=== PATIENT | female | born 1960 | race Caucasian/White ===

== ENCOUNTER → 2018-05-09 08:47 | Outpatient (CLI) | payer BC, SELFPAY ==
--- NOTE | 2018-05-09 08:55 | BI_ITS ---
MAMMOGRAPHY - UNILATERAL DIAGNOSTIC: LEFT BREAST REASON FOR EXAM: Female, 58 years old. Palpable abnormality in the left breast at the 8:00 position. PERTINENT HISTORY: Non-contributory. TECHNIQUE: Digital unilateral breast martinez (3D mammographic acquisition) in the CC and MLO projections. 2-D mediolateral oblique (MLO) and craniocaudad (CC) views of both breasts were obtained. CAD: Full Field Digital Mammography with Computer Added Detection was performed. COMPARISON: Comparison is made with prior outside examination from September 04, 2017. FINDINGS: Breast Composition: The breasts are heterogeneously dense, which may obscure small masses. There are no dominant masses or suspicious calcifications. Stable appearing left axillary lymph node. No other significant abnormalities are identified. BI/DIAG MAMM W/CAD, UNILAT IMPRESSION: Stable unilateral diagnostic mammogram. With the patient's history of a palpable abnormality in the left breast, correlation with ultrasound is recommended. ASSESSMENT CATEGORY: BIRADS Category 0: Incomplete. Need additional imaging evaluation. A letter regarding these results will be sent to the patient by the facility within 30 days. Approximately 10% of breast cancers are not detected by mammography. A normal mammogram should not delay biopsy of a clinically suspicious abnormality. Electronically Signed: Homer Montaño MD at 10:29 EST Tel [phone], Service support ,
--- NOTE | 2018-05-09 08:56 | US_ITS ---
STUDY: ULTRASOUND BREAST - LEFT REASON FOR EXAM: Female, 58 years old. Palpable lump left breast. TECHNIQUE: Axial and longitudinal images of the LEFT breast were performed with a high resolution ultrasound transducer. COMPARISON: Comparison is made with prior mammogram done earlier in the day. FINDINGS: LEFT Breast: The medial and upper aspects of the left breast were examined by ultrasound. There is homogeneous fibroglandular tissue. No solid or cystic mass lesion is seen. US/Breast Limited Unilateral IMPRESSION: Unremarkable sonographic examination of the left breast as described. ASSESSMENT CATEGORY: BIRADS Category 1: Negative. A letter regarding these results will be sent to the patient by the facility within 30 days. Electronically Signed: Homer Montaño MD at 12:12 EST Tel [phone], Service support ,
--- OUTSIDE RECORDS SUMMARY | 2018-07-04 14:39 | XMS RPT_ITS ---
:1960 Author Organization OH[facility] Care Team Providers Name Role Phone Rajat Yañez Attending Unavailable Priyanka Muir Primary Care Unavailable RAJAT YAÑEZ Referring Unavailable RAJAT YAÑEZ Referring Unavailable PRIYANKA MUIR Primary Care Unavailable RAJAT YAÑEZ Referring Unavailable PRIYANKA MUIR Primary Care Unavailable PROBLEMS PROBLEMS DATE TYPE CONDITION / ATTENDING STATUS SOURCE CODE 09/04/2017 Active Unknown / NA Active [facility] UNK(Unknown) Other [place] Repository 09/04/2017 Admitting Unknown / NA Active [facility] UNK(Unknown) [facility] Repository PROCEDURES PROCEDURES No Procedure Records FoundRESULTS RESULTS DIAG MAMM W/CAD, Observed: 05/09/2018 Status: F Source: [place] UNILAT 8:56 AM [facility] REPOSITORY [facility] Imaging Services [address] [place] [address] DIAG MAMM W/CAD, UNILAT MR#: [id number] Acct: [id number] Name: ORTIZ GUERRIER R Rep #: [id number] : 1960 F 58 From: Homer Montaño MD PCP: Priyanka Muir MD Status: REG CLI Study: DIAG MAMM W/CAD, UNILAT Date of Exam: 05/09/18 Exam# [id number] Ordering Dr: Rajat Yañez MD MAMMOGRAPHY - UNILATERAL DIAGNOSTIC: LEFT BREAST REASON FOR EXAM: Female, 58 years old. Palpable abnormality in the left breast at the 8:00 position. PERTINENT HISTORY: Non-contributory. TECHNIQUE: Digital unilateral breast martinez (3D mammographic acquisition) in the CC and MLO projections. 2-D mediolateral oblique (MLO) and craniocaudad (CC) views of both breasts were obtained. CAD: Full Field Digital Mammography with Computer Added Detection was performed. COMPARISON: Comparison is made with prior outside examination from September 04, 2017. FINDINGS: Breast Composition: The breasts are heterogeneously dense, which may obscure small masses. There are no dominant masses or suspicious calcifications. Stable appearing left axillary lymph node. No other significant abnormalities are identified. BI/DIAG MAMM W/CAD, UNILAT IMPRESSION: Stable unilateral diagnostic mammogram. With the patient's history of a palpable abnormality in the left breast, correlation with ultrasound is recommended. ASSESSMENT CATEGORY: BIRADS Category 0: Incomplete. Need additional imaging evaluation. A letter regarding these results will be sent to the patient by the facility within 30 days. Approximately 10% of breast cancers are not detected by mammography. A normal mammogram should not delay biopsy of a clinically suspicious abnormality. Electronically Signed: Homer Montaño MD at 10:29 EST Tel [phone], Service support , CC: Priyanka Muir MD; Rajat Yañez MD Latex Spooler: Signed BREAST LIMITED Observed: 05/09/2018 Status: F Source: [place] UNILATERAL 8:56 AM [facility] REPOSITORY [facility] Imaging Services [facility] [place] [address] Breast Limited Unilateral MR#: [id number] Acct: [id number] Name: ORTIZ GUERRIER Rep #: [id number] : 1960 F 58 From: Homer Montaño MD PCP: Priyanka Muir MD Status: REG CLI Study: Breast Limited Unilateral Date of Exam: 05/09/18 Exam# [id number] Ordering Dr: Rajat Yañez MD STUDY: ULTRASOUND BREAST - LEFT REASON FOR EXAM: Female, 58 years old. Palpable lump left breast. TECHNIQUE: Axial and longitudinal images of the LEFT breast were performed with a high resolution ultrasound transducer. COMPARISON: Comparison is made with prior mammogram done earlier in the day. FINDINGS: LEFT Breast: The medial and upper aspects of the left breast were examined by ultrasound. There is homogeneous fibroglandular tissue. No solid or cystic mass lesion is seen. US/Breast Limited Unilateral IMPRESSION: Unremarkable sonographic examination of the left breast as described. ASSESSMENT CATEGORY: BIRADS Category 1: Negative. A letter regarding these results will be sent to the patient by the facility within 30 days. Electronically Signed: Homer Montaño MD at 12:12 EST Tel [phone], Service support , CC: Priyanka Muir MD; Rajat Yañez MD Latex Spooler: Signed MAMMOGRAM SCREENING Observed: 09/04/2017 Status: F Source: [facility] WITH CAD IF PERFORMED 10:37 AM HEALTH SYSTEM REPOSITORY Performed at [facility] APPROVED BY: Rasta Sandoval MD #[id number] - MAMMOGRAM SCREENING WITH CAD IF PERFORMED BILATERAL DIGITAL SCREENING MAMMOGRAM WITH CAD WITH MEDIOLATERAL OBLIQUE CRANIOCAUDAL: 09/04/2017 CLINICAL: Routine screening mammogram. Patient reports no breast problems. Comparison is made to exams dated: 08/31/2016 mammogram, 08/25/2015 mammogram, and 08/21/2014 mammogram - [facility]. There are scattered fibroglandular elements in both breasts. Current study was also evaluated with a Computer Aided Detection (CAD) system. There is a mole marker on the left breast. No significant masses, calcifications, or other findings are seen in either breast. There has been no significant interval change. IMPRESSION: NEGATIVE There is no mammographic evidence of malignancy. A 1 year screening mammogram is recommended. Based on a modified Juliana Model, this patient's calculated lifetime risk of developing breast cancer is 10.0%. The patient was notified of the results. Rasta Sandoval M.D. mr/penrad:09/04/2017 11:56:53 Master Automotive Technician: Rahel Cota)([place]), [facility] letter sent: Normal Birad 1 or 2 Mammogram BI-RADS: 1 Negative ALLERGIES ALLERGIES No Allergies Records FoundENCOUNTERS ENCOUNTERS ADMIT/DISCHARGE ACCOUNT NUMBER ADMITTING ENCOUNTER LOCATION SOURCE CLASS 05/22/2018 [id number] Ambulatory [facility] MEDICAL Repository CENTERBuildi ng:AKXRMA 05/09/2018 [id number] [facility] ding:OPBI Repository 09/04/2017/09/05/19 [id number] Ambulatory [address] Other [place] Repository 09/04/2017/09/05/19 [id number] Ambulatory [address] MEDICAL Repository E[place]ENBOROBuildi ng:AKMAB PAYERS PAYERS ENCOUNTER GUARANTOR PAYER SUBSCRIBER SOURCE 05/22/2018 SINDA TISCHDOB: Primary SINDA TISCHDOB: [facility] [id number] Insurance:BLUE ACCESS [id number] Number: Repository [place], [place] [id number]: ([phone]) Date: [phone] () 05/09/2018 JINNY Primary SINDA R [place] [id number] Insurance:ANTHEMPolic TISCHDOB: [facility] Number: [id number], [place] [id number] Repository [address]Cvc: ([phone]) Date:[phone] () [address], [place] [address]ES: 05/09/2018 Secondary NOT GIVENUNK Luis Manuel Insurance:SELF PAY [facility] Number: Effective Repository Date:2018-05-01 09/04/2017 SINDA TISCHDOB: Primary SINDA TISRONALDOB: Phil Crespo [id number] Insurance:BLUE ACCESS [id number] [place] GARCÍAMcLeod Health Darlingtonic Number: Repository [place], [place] [id number] [id number]: 330) Date: [phone] ()
== END ==
PROVIDERS: Family Provider Family Medicine; PCP Family Medicine; Visit Provider Obstetrics & Gynecology
DX: N63.24 Unspecified lump in the left breast, lower inner quadrant (principal)
CPT/HCPCS: 76642; 77061; 77065; G0279

== ENCOUNTER → 2019-05-15 09:27 | Outpatient (CLI) | payer BC, SELFPAY ==
[2019-05-15 11:00] LABS: Anion Gap 7 (5-15); BUN 13 mg/dL (7-18); BUN/Creat Ratio 15.7 RATIO (10-20); Calcium,Total 9.3 mg/dL (8.5-10.1); Chloride 106 mmol/L (98-107); Creatinine, Serum 0.83 mg/dL (0.55-1.02); EST Glomerular Filtration Rate 75 mL/min (>60); Est Glom Filt Rate - Afr Amer 91 mL/min (>60); Glucose 113 mg/dL (74-106); Potassium 3.6 mmol/L (3.5-5.1); Sodium Level 140 mmol/L (136-145); Thyroid Stim Hormone (TSH) 1.36 uIU/mL (0.358-3.74)
[2019-05-15 11:15] LABS: Vitamin D,25 Hydroxy 49.5 ng/mL (29.95-100.01)
== END ==
PROVIDERS: Family Provider Family Medicine; PCP Family Medicine; Referring Provider Family Medicine; Visit Provider Family Medicine
DX: R73.01 Impaired fasting glucose (principal); Z13.29 Encounter for screening for other suspected endocrine disorder; Z13.21 Encounter for screening for nutritional disorder
CPT/HCPCS: 36415; 80048; 82306; 84443

== ENCOUNTER → 2020-05-19 09:26 | Outpatient (CLI) | payer OTHER, SELFPAY ==
[2020-05-19 10:15] LABS: Mucous, Urine 0 SEEN /hpf (<or=2+); Red Blood Cells-Urine 0 SEEN /hpf (0-5); White Blood Cells 0 SEEN /hpf (0-5)
[2020-05-19 12:13] LABS: Hematocrit 40.3 % (37-47); Hemoglobin 12.9 g/dL (12.0-15.0); Mean Corpuscular Hgb 30.6 pg (27.0-32.0); Mean Corpuscular Volume 95.5 fL (81-99); Mean Platelet Vol. 11.9 fl (6.2-12.0); Platelet Count 212 K/mm3 (150-450); RBC Distribution Width CV 12.5 % (11.6-14.6); RBC Distribution Width SD 43.4 fl (35.1-43.9); Red Blood Count 4.22 M/mm3 (4.2-5.4); White Blood Count 3.8 K/mm3 (4.4-11.0)
[2020-05-19 12:19] LABS: Color, Urine Yellow (Yellow); Glucose, Dipstick Normal (Normal); Ketone-Dipstick 5 mg/dl (Negative); Leukocyte Esterase-Dipstick Negative /ul (Negative); Nitrite-Dipstick Negative (Negative); Occult Blood-Urine Negative /ul (Negative); Protein-Dipstick Negative (Negative); Urine Bilirubin Dipstick Negative (Negative); Urine Clarity Cloudy (Clear); Urine Urobilinogen Normal (Normal)
[2020-05-19 12:26] LABS: Amorphous Sediment 2+; Bacteria 3+ /hpf (None Seen); Squamous Epithelial Cells - UA 0-5 SEEN /hpf (5-10)
[2020-05-19 12:35] LABS: Anion Gap 6 (5-15); BUN 14 mg/dL (7-18); BUN/Creat Ratio 18.9 RATIO (10-20); Calcium,Total 9.1 mg/dL (8.5-10.1); Chloride 109 mmol/L (98-107); Creatinine, Serum 0.74 mg/dL (0.55-1.02); EST Glomerular Filtration Rate 85 mL/min (>60); Est Glom Filt Rate - Afr Amer 103 mL/min (>60); Glucose 97 mg/dL (74-106); Potassium 3.7 mmol/L (3.5-5.1); Sodium Level 143 mmol/L (136-145); Thyroid Stim Hormone (TSH) 1.22 uIU/mL (0.358-3.74)
== END ==
PROVIDERS: PCP Family Medicine; Visit Provider Family Medicine
DX: R82.4 Acetonuria (principal); Z13.29 Encounter for screening for other suspected endocrine disorder; R20.9 Unspecified disturbances of skin sensation; R73.01 Impaired fasting glucose
CPT/HCPCS: 36415; 80048; 81001; 84443; 85027

== ENCOUNTER → 2020-11-06 12:47 | Outpatient (CLI) | payer BC, SELFPAY ==
--- NOTE | 2020-11-06 12:53 | ART_ITS ---
Reason For Study: PVD Procedure A bilateral lower extremity continuous wave Doppler with analog waveform analysis,segmental pressures,and ankle brachial indexes without exercise. Left Segmental Pressures Left brachial= 127mmHg. Left posterior tibial artery = 147mmHg. Left dorsalis pedis artery = 139mmHg. Left digit = 123 mmHg. The left dorsalis pedis waveforms are triphasic. The left posterior tibial artery waveforms are triphasic. Right Segmental Pressures Right brachial= 130mmHg. Right posterior tibial artery = 148mmHg. Right dorsalis pedis artery = 146mmHg. Right digit = 122 mmHg. The right dorsalis pedis waveforms are triphasic. The right posterior tibial artery waveforms are triphasic. Indices The right ankle brachial index by the dorsalis pedis is 1.12. The right ankle brachial index by the posterior tibial artery is 1.14. The right wrist-brachial index is 0.94. The left ankle brachial index by the dorsalis pedis is 1.07. The left ankle brachial index by the posterior tibial artery is 1.13. The left digital-brachial index is 0.95. VL/Lower Ext Art Exam w/o Exercis Interpretation Summary Triphasic Doppler waveforms are noted at ankle level bilaterally. Pulse-volume recording waveform amplitudes are diminished at ankle level bilaterally, but satisfactory at all o ther levels bilaterally. Resting ankle-brachial indices are normal bilaterally. Digital-bra chial indices are normal bilaterally. There is no evidence of significant arterial occlusive disease in the lower ext remities bilaterally. Ordering Physician: Santana Duran Referring Physician: Trino Julio MD Performed By: May Sood RVT
== END ==
PROVIDERS: PCP Family Medicine; Referring Provider Podiatrist; Visit Provider Podiatrist
DX: I73.9 Peripheral vascular disease, unspecified (principal)
CPT/HCPCS: 93923

== ENCOUNTER → 2020-12-23 08:54 | Outpatient (CLI) | payer BC, SELFPAY ==
--- NOTE | 2020-12-23 14:38 | NEURO ---
NCS and/or EMG Patient Report Ordering Doctor: Santana Duran DATE OF SERVICE: 12/23/20 Keron Sams presents for electrodiagnostic testing of the right lower limb. She reports numbness and tingling in both feet. Due to concerns regarding the testing, she is opting to only have the right side done. Electrodiagnostic findings:Right peroneal motor nerve demonstrates normal distal latency, amplitude and conduction velocity. Normal right tibial motor response normal tibial and peroneal F waves. Normal right sural and superficial peroneal responses. Plantar responses are within normal limits.Borderline prolonged H reflex bilaterally. On needle EMG, all muscles tested in the right lower extremity showed no evidence of denervation with normal motor unit action potentials. Electrodiagnostic impression:This is a normal electrodiagnostic study of the right lower limb. There is no electrodiagnostic evidence for peripheral neuropathy or lumbosacral radiculopathy.
== END ==
PROVIDERS: PCP Family Medicine; Referring Provider Podiatrist; Visit Provider Podiatrist
DX: G62.9 Polyneuropathy, unspecified (principal); R20.2 Paresthesia of skin
CPT/HCPCS: 95886; 95910

== ENCOUNTER → 2021-05-21 10:53 | Outpatient (CLI) | payer BC, SELFPAY ==
[2021-05-21 12:11] LABS: Hematocrit 42.9 % (37-47); Mean Corp Hgb Conc 32.6 g/dL (32-36); Mean Corpuscular Hgb 31.1 pg (27.0-32.0); Mean Corpuscular Volume 95.3 fL (81-99); Mean Platelet Vol. 11.6 fl (6.2-12.0); Platelet Count 226 K/mm3 (150-450); RBC Distribution Width CV 12.5 % (11.6-14.6); RBC Distribution Width SD 43.8 fl (35.1-43.9); White Blood Count 4.1 K/mm3 (4.4-11.0)
[2021-05-21 12:26] LABS: Vitamin D,25 Hydroxy 45.1 ng/mL
[2021-05-21 12:27] LABS: Anion Gap 8 (5-15); BUN 12 mg/dL (7-18); Calcium,Total 9.3 mg/dL (8.5-10.1); Chloride 107 mmol/L (98-107); Cholesterol 157 mg/dL (200); EST Glomerular Filtration Rate 78 mL/min (>60); Est Glom Filt Rate - Afr Amer 94 mL/min (>60); Glucose 104 mg/dL (74-106); High Density Lipoprotein 87 mg/dL; Potassium 3.8 mmol/L (3.5-5.1); Sodium Level 141 mmol/L (136-145); Thyroid Stim Hormone (TSH) 1.06 uIU/mL (0.358-3.74); Triglycerides 53 mg/dL; Very Low Density Lipoprotein 11 mg/dL (5-40)
== END ==
LOC: MFPLAB 10:54
PROVIDERS: PCP Family Medicine; Referring Provider Family Medicine; Visit Provider Family Medicine
DX: Z00.00 Encounter for general adult medical examination without abnormal findings (principal); Z13.1 Encounter for screening for diabetes mellitus; Z13.220 Encounter for screening for lipoid disorders
CPT/HCPCS: 36415; 80048; 80061; 82306; 84443; 85027

== ENCOUNTER → 2022-05-25 | Outpatient (CLI) | payer BC, SELFPAY ==
[2022-05-25 17:58] LABS: Hematocrit 41.5 % (37-47); Mean Corp Hgb Conc 33.7 g/dL (32-36); Mean Corpuscular Hgb 32.2 pg (27.0-32.0); Mean Corpuscular Volume 95.4 fL (81-99); Mean Platelet Vol. 11.6 fl (6.2-12.0); Platelet Count 267 K/mm3 (150-450); RBC Distribution Width CV 12.9 % (11.6-14.6); RBC Distribution Width SD 45.6 fl (35.1-43.9); Red Blood Count 4.35 M/mm3 (4.2-5.4); White Blood Count 7.7 K/mm3 (4.4-11.0)
[2022-05-25 18:39] LABS: Anion Gap 10 (5-15); BUN 12 mg/dL (7-18); BUN/Creat Ratio 16.4 RATIO (10-20); Calcium,Total 9.5 mg/dL (8.5-10.1); Chloride 104 mmol/L (98-107); Cholesterol 189 mg/dL (200); Creatinine, Serum 0.73 mg/dL (0.55-1.02); EST Glomerular Filtration Rate 86 mL/min (>60); Est Glom Filt Rate - Afr Amer 104 mL/min (>60); Ferritin 159 ng/mL (8-252); Glucose 101 mg/dL (74-106); High Density Lipoprotein 105 mg/dL; Iron 78 ug/dL (50-170); Potassium 3.8 mmol/L (3.5-5.1); Sodium Level 140 mmol/L (136-145); Thyroid Stim Hormone (TSH) 1.61 uIU/mL (0.358-3.74); Triglycerides 41 mg/dL; Very Low Density Lipoprotein 8 mg/dL (5-40)
[2022-05-25 19:06] LABS: Vitamin B12 471 pg/mL (211-911); Vitamin D,25 Hydroxy 47.3 ng/mL
== END | disposition home or self-care (01) ==
LOC: MFPLAB 15:32
PROVIDERS: PCP Family Medicine; Referring Provider Family Medicine; Visit Provider Family Medicine
DX: Z13.220 Encounter for screening for lipoid disorders (principal); Z13.1 Encounter for screening for diabetes mellitus; L65.9 Nonscarring hair loss, unspecified; Z13.29 Encounter for screening for other suspected endocrine disorder; V77.6XXA Passenger on bus injured in collision with fixed or stationary object in traffic accident, initial encounter
CPT/HCPCS: 36415; 80048; 80061; 82306; 82607; 82728; 83540; 84443; 85027

== ENCOUNTER → 2022-06-02 | Outpatient (CLI) | payer BC, SELFPAY ==
[2022-06-13 16:15] LABS: HPV APTIMA, High Risk Negative (Negative)
== END | disposition home or self-care (01) ==
LOC: LABSPEC 11:29
PROVIDERS: PCP Family Medicine; Visit Provider Obstetrics & Gynecology
DX: Z12.4 Encounter for screening for malignant neoplasm of cervix (principal)
CPT/HCPCS: 87624; 88175; G0145

== ENCOUNTER → 2024-11-26 | Outpatient (CLI) | payer BC, SELFPAY ==
--- NOTE | 2024-11-26 11:03 | RAD_ITS ---
PROCEDURE: ANKLE MIN 3 VIEWS 11/26/2024 REASON FOR EXAM: LEG SWELLING TECHNIQUE: ANKLE MIN 3 VIEWS COMPARISON: None. FINDINGS: Chronic deformity of the distal fibular diaphysis secondary to healed fracture. Well corticated bone fragment adjacent to the tip of the medial malleolus, chronic finding. Calcaneal spur formation. Mild osteopenia of the visualized bones. Degenerative joint disease. No fracture or dislocation is seen. No lytic or blastic bone lesion is noted. . RAD/Ankle min 3 Views IMPRESSION: No evidence for acute abnormality. [facility]
== END | disposition home or self-care (01) ==
LOC: MTRAD 11:01
PROVIDERS: PCP Family Medicine
DX: M79.89 Other specified soft tissue disorders (principal)
CPT/HCPCS: 73610

== ENCOUNTER → 2024-12-17 | Outpatient (CLI) | payer BC, SELFPAY ==
[2024-12-17 13:32] LABS: Anion Gap 11 (5-15); BUN 10 mg/dL (4-19); BUN/Creat Ratio 13.3 RATIO (10-20); Calcium,Total 9.6 mg/dL (7.6-11.0); Carbon Dioxide 24.5 mmol/L (21.0-32.0); Chloride 103 mmol/L (98-108); Glucose 127 mg/dL (70-99); Potassium 4.0 mmol/L (3.3-5.1); Vitamin D,25 Hydroxy 50.7 ng/mL (30-100)
== END | disposition home or self-care (01) ==
LOC: MTLAB 09:05
PROVIDERS: PCP Family Medicine; Referring Provider Podiatrist; Visit Provider Podiatrist
DX: M84.371A Stress fracture, right ankle, initial encounter for fracture (principal)
CPT/HCPCS: 36415; 80048; 82306

== ENCOUNTER → 2025-02-04 | Outpatient (CLI) | payer BC, SELFPAY ==
--- NOTE | 2025-02-04 12:42 | VDLE_ITS ---
Reason For Study Reason For Study: RLE PAIN/SWELLING RIGHT LEFT CFV is compressible, spontaneous, phasic, competent CFV is compressible, spontaneous, phasic, competent, and demonstrates normal augmentation. and demonstrates normal augmentation. FV is compressible, spontaneous, phasic, competent and demonstrates normal augmentation. POP V is compressible, spontaneous, phasic, competent and demonstrates normal augmentation. T/P Trunk is compressible. PTV is compressible. RT PerV is compressible. GSV is normal from prox calf to groin. GSV is DILATED AND NONCOMPRESSIBLE from ANKLE to MID CALF C/W ACUTE SVT. Procedure This is a venous duplex using B-mode, color flow and spectral Doppler. Exam performed in department. A preliminary report was called and/or faxed to Brigitte @ [facility] @ 13:10 @ [phone]. VL/Venous Duplex US, Unilateral Interpretation Summary Deep veins of the right lower extremity are patent and compressible segmentally . There is no evidence of right lower extremity deep vein thrombosis. Valvular competence appears intact within the p roximal deep venous system on the right . Acute superficial thrombophlebitis is noted in the right great saphenous vein f rom the ankle to the mid-calf. The right great saphenous vein is patent and compressible from the proximal calf to the g roin. The left common femoral vein is patent and compressible . Ordering Physician: Santana Duran Referring Physician: Trino Julio Performed By: Araseli Bravo, KWABENA, RVT
--- OUTSIDE RECORDS SUMMARY | 2025-02-04 20:34 | XMS RPT_ITS | CCD ---
Author Organization [facility] Care Team Providers Care Car Bracer Name Role Phone RAJAT YAÑEZ Referring Unavailable PRIYANKA JULIO Primary Care UnavailRAJAT Hobbs Referring Unavailable PRIYANKA JULIO Primary Care Priyanka Paredes MD Primary Care Provider Priyanka Julio MD Primary Care Provider Priyanka Julio MD Primary Care Provider PRIYANKA JULIO Referring UnavailPRIYANKA Ballesteros Primary Care Unavailshira Julio MD, Dr. Jameson Primary Care Provider Dr. Priyanka Julio MD Referring Provider Rajat Avila Attending Provider Go RECORDS SECTION SUPERVISOR-CViviana Attending Provider [phone] Go RECORDS SECTION SUPERVISOR-CViviana Referring Provider Dr. Priyanka Julio MD Primary Care Provider Dr. Priyanka Julio MD Referring Provider Rajat Avila Attending Provider Roger DPMDr. Dillon Attending Provider [phone] Roger HIGUERAMDr. Dillon Referring Provider Priyanka Julio Referring Unavailable Priyanka Julio Primary Care Unavailable Rajat Avila Attending Unavailable Priyanka Julio Primary Care Unavailable Santana Duran Referring Unavailable Santana Duran Attending Unavailable Go RECORDS SECTION SUPERVISOR, Viviana Attending Unavailable Priyanka Julio Primary Care Unavailable Go RECORDS SECTION SUPERVISORViviana Referring Unavailable Priyanka Julio Referring Unavailable Priyanka Julio Primary Care Unavailable Rajat Avila Attending Unavailable Medications Current Medications Medication Drug Class(es) Dates Sig (Normalized) Sig (Original) amoxicillin 875 mg oral tablet (8 sources) Penicillin-class Antibacterial Start: 11-06-2024 take 1 tablet by mouth twice daily Amoxicillin 875 mg tablet Active 875 mg PO TWICE A DAY 20 0 November 06, 2024 12:00am Start: 08-20-2024 End: 11-06-2024 take 1 tablet by mouth three times daily Amoxicillin 500 mg tablet Discontinued 500 mg PO THREE TIMES A DAY 30 0 August 20, 2024 12:00am November 06, 2024 7:51am Multivitamin tablet (3 sources) Start: 08-20-2024 Multivitamin t ablet Active 1 {tbl} PO daily August 20, 2024 12:00am Hollis 7-Bwp-Rhg-Fish Oil (Fi sh Oil) 60-90-500 mg capsule (3 sources) Start: 08-20-2024 Hollis 3-Dha-Ep a-Fish Oil (Fish Oil) 60-90-500 mg capsule Active 1 NMA PO daily August 20, 2024 12:00am Problems Active Problems Problem Classification Problem Date Documented Da te Episodic/Chronic Fracture of lower limb (1 source) Stress fracture, right ankle, initial encounter for fracture; Translations: [Stress fracture, right ankle, initial encounter for fracture] Onset: 12-24-2024 Episodic Other connective tissue disease (1 source) Other specified soft tissue disorders; Translations: [Other specified soft tissue disorders] Onset: 12-03-2024 Episodic Past or Other Problems Problem Classification Problem Date Documented Da te Episodic/Chronic Unclassified (1 source) lump on left side 800 position Onset: 05-22-2018 Results Test Name Value Interpretation Reference Range Facil ity Anion gap in Serum or Plasma Ordered By: Santana Duran on 12-17-2024 Anion gap [Moles/Vol] 11 mmol/L 10-24 [facility] BUN/creatinine ratioOrdered By: Santana Duran on 12-17-2024 Urea nitrogen/Creatinine [Mass ratio] 13.3 mg/mg 03-31 [facility] Basic Metabolic Profile (BMP )on 12-17-2024 BUN/CRE 13.3 RATIO Normal 03-31 [facility] Comment on above: Performed By: #### L 506.1001, L500.2500 #### [facility] [address] [place], [address] Calcium [Mass/Vol] 9.6 mg/dL Normal 7.6-11.0 [facility] Comment on above: Performed By: #### L 506.1001, L500.2500 #### [facility] [address] [place], [address] Chloride [Moles/Vol] 103 mmol/L Normal 98-108 [facility] Comment on above: Performed By: #### L 506.1001, L500.2500 #### [facility] [address] [place], [address] CO2 [Moles/Vol] 24.5 mmol/L Normal 21.0-32.0 [facility] Comment on above: Performed By: #### L 506.1001, L500.2500 #### [facility] [address] [place], [address] Creatinine [Mass/Vol] 0.78 mg/dL Normal 0.70-1.20 [facility] Comment on above: Performed By: #### L 506.1001, L500.2500 #### [facility] [address] [place], [address] GAP 11 Normal 5-15 [facility] Comment on above: Performed By: #### L 506.1001, L500.2500 #### [facility] [address] [place], [address] GFR/1.73 sq M.predicted among non-blacks MDRD (S/P/Bld) [Vol rate/Area] 85 mL/min/{1.73_m2} Normal >60 [facility] Comment on above: Result Comment: mL/m in/1.73m2 CKD-EPI Creatinine Equation (2020) Performed By: #### L 506.1001, L500.2500 #### [facility] [address] [place], [address] Glucose [Mass/Vol] 127 mg/dL High 70-99 [facility] Comment on above: Performed By: #### L 506.1001, L500.2500 #### [facility] [address] [place], [address] Potassium [Moles/Vol] 4.0 mmol/L Normal 3.3-5.1 [facility] Comment on above: Performed By: #### L 506.1001, L500.2500 #### [facility] [address] [place], [address] Sodium [Moles/Vol] 139 mmol/L Normal 133-145 [facility] Comment on above: Performed By: #### L 506.1001, L500.2500 #### [facility] [address] [place], [address] Urea nitrogen [Mass/Vol] 10 mg/dL Normal 4-19 [facility] Comment on above: Performed By: #### L 506.1001, L500.2500 #### [facility] [address] [place], [address] Carbon dioxide, total [Moles /volume] in Central venous bloodOrdered By: Santana Duran on 12-17-2024 CO2 [Moles/Vol] 24.5 mmol/L 21.0-32.0 [facility] Chloride assayOrdered By: Tevin Duran on 12-17-2024 Chloride [Moles/Vol] 103 mmol/L 98-108 [facility] Glomerular filtration rate ( GFR) estimation/1.73 sq m using serum, plasma, or whole bOrdered By: Santana Duran on 12-17-2024 GFR/1.73 sq M.predicted among non-blacks MDRD (S/P/Bld) [Vol rate/Area] 85 mL/min/{1.73_m2} >60 [facility] Comment on above: mL/min/1.73m2 CKD-EP I Creatinine Equation (2020) Potassium measurement (mass/ volume)Ordered By: Santana Duran on 12-17-2024 Potassium (Unsp spec) [Mass/Vol] 4.0 mmol/L 3.3-5.1 [facility] Serum creatinine measurement (mass/volume)Ordered By: Santana Duran on 12-17-2024 Creatinine [Mass/Vol] 0.78 mg/dL 0.70-1.20 [facility] Serum glucose measurement (m ass/volume)Ordered By: Santana Duran on 12-17-2024 Glucose [Mass/Vol] 127 mg/dL High 70-99 [facility] Serum or plasma calcium silke urement (mass/volume)Ordered By: Santana Duran on 12-17-2024 Calcium [Mass/Vol] 9.6 mg/dL 7.6-11.0 [facility] Serum or plasma urea nitroge n measurement (mass/volume)Ordered By: Santana Duran on 12-17-2024 Urea nitrogen [Mass/Vol] 10 mg/dL 4-19 [facility] Sodium levelOrdered By: Pipe Duran on 12-17-2024 Sodium [Moles/Vol] 139 mmol/L 133-145 [facility] Vitamin D,25 Hydroxyon 12-17 Vitamin D 25-OH 50.7 ng/mL Normal 30-100 [facility] Comment on above: Result Comment: Maisha min D Status Deficiency: <20 ng/mL (50nmol/L) Insufficiency: 20-30 ng/mL (50-75 nmol/L) Sufficiency: 30-100 ng/mL (75-250 nmol/L) Toxicity: >100 ng/mL (>250 nmol/L) Performed By: #### L 506.1001, L500.2500 #### [facility] [address] [place], [address] Ankle min 3 Viewson 11-27-19 25 Ankle min 3 Views [facility] Imaging Services [address] [place] [address] Ankle min 3 Views MR#: [id number] Acct: [id number] Name: ORTIZ SAMS Rep #: [id number] : 1960 F 64 From: Christopher leon MD PCP: Dr. Priyanka Julio MD Status: REG CLI Study: Ankle min 3 Views Date of Exam: 11/26/24 Exam# [id number] Ordering Dr: Viviana Stiles NP, NP PROCEDURE: ANKLE MIN 3 VIEWS 11/26/2024 REASON FOR EXAM: LEG SWELLING TECHNIQUE: ANKLE MIN 3 VIEWS COMPARISON: None. FINDINGS: Chronic deformity of the distal fibular diaphysis secondary to healed fracture. Well corticated bone fragment adjacent to the tip of the medial malleolus, chronic finding. Calcaneal spur formation. Mild osteopenia of the visualized bones. Degenerative joint disease. No fracture or dislocation is seen. No lytic or blastic bone lesion is noted. . RAD/Ankle min 3 Views IMPRESSION: No evidence for acute abnormality. Reading Location: [place] [address] CC: Viviana Stiles; Dr. Priyanka Julio MD Work Over Rig Operator: Signed Normal [facility] Urgent Care Visit Reporton 0 11-06-2024 Urgent Care Visit Report [facility] [address], [address] [place] [id number] OFFICE VISIT Date of Service: 11/06/24 MR#: [id number] Acct: [id number] Name: ORTIZ SAMS Rep #: [id number] : 1960 Provider: HARMONY Vaz Age/Sex: 64/F Location: [facility] Status: Signed Intake Vital Signs 08/20/24 08:23 11/06/24 07:50 Height 5 ft 6 in Weight: 139 lb BMI 22.4 BP 138/82 H 132/68 H Blood Pressure Location Lt brachial Lt brachial Position Sitting Sitting Respiration 16 16 Pulse 66 67 Pulse Source Monitor NIBP Temp 98.1 F 98.7 F Temp Source Temporal Oral Pulse Oximetry (%) 97 100 Oxygen Delivery Method room air room air Intake Visit Reasons: WESTLEY/PEREZ/ST Chief Complaint: congest, chest tight, cough, PEREZ, mucus Grill Cook Required: No Is patient in pain?: No Allergies No Known Allergies Allergy (Verified 11/06/24 07:51) Medications ???Medication ???Instructions ???Recorded ???Confirmed ???Type multivitamin 1 tab PO QDAY 08/20/24 08/20/24 Hi story omega 6-pfz-uzd-fish oil 60 mg-90 1 cap PO QDAY 08/20/24 08/20/24 H istory mg-500 mg capsule (Fish Oil) amoxicillin 875 mg tablet 875 mg PO BID #20 tabs 11/06/24 Rx Is last menstrual period known: No Post menopausal: Yes Patient : No Have you fallen in the past year?: No Nurse's Note: congest, chest tight, cough, PEREZ, mucus x 6 days without resolve. has tried numerous otc meds without relief. denies fever. [facility] Social History (Updated 08/20/24 @ 08:16 by Jade Sutton) Smoking Status: Never smoker alcohol intake: current alcohol intake frequency: a few times a week HPI HPI Chief Complaint: congest, chest tight, cough, PEREZ, mucus Details: ORTIZ SAMS, is a 64 F who presents to the office today for [facility] evaluation [facility] for approximately 1-week history of progressively worsening right facial pressure/congestion with purulent postnasal drip/cough. No complaints of fever, chills, myalgias, fatigue, runny nose, or nausea/vomiting/diarr hea. No complaints of chest pressure (though describes tightness w/ occasional cough)/shortness of breath/dyspnea on exertion. No close contacts with similar complaints. Nonsmoker. Declining POC screening. No other associated symptoms and no other alleviating/aggravati ng factors. ROS Const Constitutional: No other (as above) Exam Const General: cooperative, healthy appearing and no acute distress Nutritional Appearance: average body habitus Orientation: alert, awake and oriented x3 HENMT Head: normal to inspection Ears: hearing grossly normal bilaterally, external ears normal, TM's normal bilaterally and EAC's normal Nose: external nose normal, nares normal, septum normal and no nasal discharge Face and sinus: normal facial exam, right maxillary sinus pain tender (w/ right maxillary fullness to palpation) and face symmetric Mouth: oral mucosae normal, lip normal, tongue normal and oropharynx normal Throat: posterior oropharynx normal, tonsils normal, uvula midline and postnasal drainage (Purulent) Eyes General: appearance normal, both eyes and all related structures Neck Neck: normal visual inspection, full ROM, no meningeal signs, supple and lymphadenopathy (R>L anterior cervical lymph node swelling/tender to palpation) Neck mass: No Thyroid: thyroid normal Chest Chest palpation inspection: normal inspection of the chest Resp Effort Inspection: normal respiratory effort and able to speak in complete sentences Auscultation: Bilateral: Clear to Auscultation Cardio Palpation: normal PMI Rate: regular rate Rhythm: regular rhythm Heart Sounds: S1 normal, S2 normal, no gallops, no murmurs and no rubs Pulses: radial pulses present GI Inspection: normal to inspection Skin General: no rashes or lesions noted Neuro General: patient alert, patient awake and patient oriented x3 Cognition: normal cognition Speech: speech normal Psych Appearance: grossly normal Mental Status: mental status grossly normal Mood: congruent mood Affect: normal affect Speech and Movement: speech and movement normal Attitude: cooperative Diagnoses Acute maxillary sinusitis, unspecified J01.00 Assessment and Plan Assessment and Plan (1) Acute maxillary sinusitis, unspecified: Status: Acute Plan: Amoxicillin as prescribed today. Supportive measures as instructed today. Follow-up with PCP in 3 to 5 days should symptoms not improve, sooner should symptoms worsen or any other concerns develop. Patient states acknowledging understanding all the above. Coding Level of Care Code Off vis,est,level 3 Assessment and Plan Assessment and Plan Medications: New amoxicillin 875 mg PO BID 20 tabs 0RF Clinical Quality Measures Falls Risk Scr (more content not included)... Normal [facility] SAQIB SCREENING W TOMOon 10-07 SAQIB SCREENING W LYNN * * *Final Report* * * DATE OF EXAM: Oct 07 2024 3:22PM AWW 0582 - SAQIB SCREENING W LYNN / PROCEDURE REASON: screening mamm * * * * Physician Interpretation * * * * [facility] [address] [place], [place] [address] #[id number] - SAQIB SCREENING W LYNN HISTORY: 64 year-old patient [...] Frederick Mack M.D. Electronically signed on: 10/08/2024 Work Over Rig Operator: ARABELLA Transcribe Date/Time: Oct 07 2024 2:49P Dictated by : FREDERICK MACK MD This examination was interpreted and the report reviewed and electronically signed by: FREDERICK MACK MD on Oct 08 2024 8:59AM EST [id number] Normal [facility] Urgent Care Visit Reporton 0 08-20-2024 Urgent Care Visit Report [facility] [address], [address] [place] [address] OFFICE VISIT Date of Service: 08/20/24 MR#: [id number] Acct: [id number] Name: ORTIZ SAMS Rep #: [id number] : 1960 Provider: HARMONY Vaz Age/Sex: 64/F Location: [facility] Status: Signed Intake Vital Signs 08/20/24 08:23 Height 5 ft 6 in Weight: 139 lb BMI 22.4 BP 138/82 H Blood Pressure Location Lt brachial Position Sitting Respiration 16 Pulse 66 Pulse Source Monitor Temp 98.1 F Temp Source Temporal Pulse Oximetry (%) 97 Oxygen Delivery Method room air Intake Visit Reasons: ST/BILAT EAR PAIN/PEREZ Chief Complaint: sinus congestion, b/l ear pain, cough Grill Cook Required: No Accompanied by: Self Is patient in pain?: No Allergies No Known Allergies Allergy (Verified 08/20/24 08:15) Medications ???Medication ???Instructions ???Recorded ???Confirmed ???Type amoxicillin 500 mg tablet 500 mg PO TID #30 tabs 08/20/24 Rx amoxicillin 500 mg tablet 500 mg PO TID #30 tabs 08/20/24 Rx multivitamin 1 tab PO QDAY 08/20/24 08/20/24 Hi story omega 4-fma-wdg-fish oil 60 mg-90 1 cap PO QDAY 08/20/24 08/20/24 H istory mg-500 mg capsule (Fish Oil) PFSH Social History (Updated 08/20/24 @ 08:16 by Jade Sutton) Smoking Status: Never smoker alcohol intake: current alcohol intake frequency: a few times a week HPI HPI Chief Complaint: sinus congestion, b/l ear pain, cough Details: ORTIZ SAMS, is a 64 F who presents to the office today for [facility] for 8-day history of progressively worsening facial pressure/congestion with purulent postnasal drip/cough and bilateral ear pressure. No complaints of fever, chills, myalgias, fatigue, runny nose, or nausea/vomiting/diarr hea. No complaints of chest pain/shortness of breath/dyspnea on exertion. Several close contacts with similar complaints, including spouse. Non-smoker. No axxm-tmz-crlcqfz products taken to assist. No other associated symptoms and no other alleviating/aggravati ng factors. ROS Const Constitutional: No other (as above) Exam Const General: cooperative, healthy appearing and no acute distress Nutritional Appearance: average body habitus Orientation: alert, awake and oriented x3 HENMT Head: normal to inspection Ears: hearing grossly normal bilaterally, external ears normal, TM's normal bilaterally and EAC's normal Nose: external nose normal, nares normal, septum normal and no nasal discharge Face and sinus: normal facial exam, bilateral maxillary sinuses palpable tender (with R>L maxillary fullness to palpation) and face symmetric Mouth: oral mucosae normal, lip normal, tongue normal and oropharynx normal Throat: posterior oropharynx normal, tonsils normal, uvula midline and postnasal drainage (Purulent) Eyes General: appearance normal, both eyes and all related structures Neck Neck: normal visual inspection, full ROM, no meningeal signs, supple and lymphadenopathy (Bilateral anterior cervical lymph node swelling/tender to palpation) Neck mass: No Thyroid: thyroid normal Chest Chest palpation inspection: normal inspection of the chest Resp Effort Inspection: normal respiratory effort and able to speak in complete sentences Auscultation: Bilateral: Clear to Auscultation Cardio Palpation: normal PMI Rate: regular rate Rhythm: regular rhythm Heart Sounds: S1 normal, S2 normal, no gallops, no murmurs and no rubs Pulses: radial pulses present GI Inspection: normal to inspection Skin General: no rashes or lesions noted Neuro General: patient alert, patient awake and patient oriented x3 Cognition: normal cognition Speech: speech normal Psych Appearance: grossly normal Mental Status: mental status grossly normal Mood: congruent mood Affect: normal affect Speech and Movement: speech and movement normal Attitude: cooperative Diagnoses Acute maxillary sinusitis, unspecified J01.00 Assessment and Plan Assessment and Plan (1) Acute maxillary sinusitis, unspecified: Status: Acute Plan: Amoxicillin as prescribed today. Supportive measures as instructed today. Follow-up with PCP in 3 to 5 days should symptoms not improve, sooner should symptoms worsen or any other concerns develop. Patient states acknowledging understanding all the above. Coding Level of Care Code Off vis,new,level 3 Assessment and Plan Assessment and Plan Medications: New amoxicillin 500 mg PO TID 30 tabs 0RF amoxicillin 500 mg PO TID 30 tabs 0RF 08/20/24 0828 Date Rajat ANTUNEZ Cosigner Signature: Date (if applicable) CC: Normal [facility] Basophil percentageon 2021 Chloride [Moles/Vol] 104 mmol/L 98-107 [facility] Work Phone: Cholesterol [Mass/Vol] 189 mg/dL <200 [facility] Work Phone: Comment on above: <200 mg/dL Desirable 200-240 mg/dL Borderline >240 mg/dL High Risk Glucose [Mass/Vol] 101 mg/dL 74-106 [facility] Work Phone: Comment on above: Fasting Glucose resu lt from 100 to 125 mg/dL suggests IMPAIRED HOMEOSTASIS per A.D.A. criteria. Potassium [Moles/Vol] 3.8 mmol/L 3.5-5.1 [facility] Work Phone: Sodium [Moles/Vol] 140 mmol/L 136-145 [facility] Work Phone: Triglyceride [Mass/Vol] 41 mg/dL <199 [facility] Work Phone: Comment on above: The drugs N-Acetylcy steine and Metamizole may falsely depress this assay.Serum Triglycerides Reference Interval Normal <150 mg/dL Borderline high 150 - 199 mg/dL High 200 - 499 mg/dL Very High > or = 500 mg/dL WBC (Bld) [#/Vol] 7.7 10*3/uL 4.4-11.0 [facility] Work Phone: Blood erythrocytes count (nu mber/volume)on 05-25-2022 RBC (Bld) [#/Vol] 4.35 10*6/uL 4.2-5.4 [facility] Work Phone: Blood hemoglobin measurement (mass/volume)on 05-25-2022 Hemoglobin (Bld) [Mass/Vol] 14.0 g/dL 12.0-15.0 [facility] Work Phone: Blood platelet mean volumeon 05-25-2022 Platelet mean volume (Bld) [Entitic vol] 11.6 fL 6.2-12.0 [facility] Work Phone: Determination of erythrocyte mean corpuscular volume (MCV)on 05-25-2022 MCV (RBC) [Entitic vol] 95.4 fL 81-99 [facility] Work Phone: Hematocrit Auto (Bld) [Volum e fraction]on 05-25-2022 Hematocrit (Bld) [Volume fraction] 41.5 % 37-47 [facility] Work Phone: Iron measurement (mass/mass) on 05-25-2022 Iron (Unsp spec) [Mass/Mass] 78 ug/dL 50-170 [facility] Work Phone: Laboratory - Chemistry and C hemistry - challengeon 05-25-2022 CO2 [Moles/Vol] 26.0 mmol/L 21.0-32.0 [facility] Work Phone: Cobalamin (Vitamin B12) [Mass/Vol] 471 pg/mL 211-911 [facility] Work Phone: Urea nitrogen/Creatinine [Mass ratio] 16.4 mg/mg 10-20 [facility] Work Phone: Laboratory - Hematology and Cell countson 05-25-2022 Erythrocyte distribution width (RBC) [Entitic vol] 45.6 fL 35.1-43.9 [facility] Work Phone: Erythrocyte distribution width (RBC) [Ratio] 12.9 % 11.6-14.6 [facility] Work Phone: MCH (RBC) [Entitic mass] 32.2 pg 27.0-32.0 [facility] Work Phone: MCHC Auto (RBC) [Mass/Vol]on 05-25-2022 MCHC (RBC) [Mass/Vol] 33.7 g/dL 32-36 [facility] Work Phone: No Panel Informationon 12-14 -2022 Estimated GFR (MDRD) Amer 104 mL/min >60 [facility] Work Phone: Comment on above: GFR Calc Estimated GFR (MDRD) Non-Af Amer 86 mL/min >60 [facility] Work Phone: Comment on above: Non- GFR Calc Thyroid Stimulating Hormone (TSH) 1.61 uIU/mL 0.358-3.74 [facility] Work Phone: Vitamin D 25-Hydroxy 47.3 ng/mL [facility] Work Phone: Comment on above: Vitamin D 25(OH) Sta tus Range Deficiency <20 ng/mL (50nmol/L) Insufficiency 20 - 30 ng/mL (50 - 75 nmol/L) Sufficiency 30 - 100 ng/mL (75 - 250 nmol/L) Toxicity >100 ng/mL (>250 nmol/L) Platelets bldon 05-25-2022 Platelets (Bld) [#/Vol] 267 10*3/uL 150-450 [facility] Work Phone: Serum or plasma calcium silke urement (mass/volume)on 05-25-2022 Calcium [Mass/Vol] 9.5 mg/dL 8.5-10.1 [facility] Work Phone: Serum or plasma cholesterol in HDL measurement (mass/volume)on 05-25-2022 Cholesterol in HDL [Mass/Vol] 105 mg/dL >40 [facility] Work Phone: Comment on above: The drugs N-Acetylcy steine and Metamizole may falsely depress this assay. Reference Range HDL <40 mg/dL Low HDL Cholesterol HDL >or= 60 mg/dL High HDL Cholesterol Serum or plasma cholesterol in VLDL measurement (mass/volume)on 05-25-2022 Cholesterol in VLDL [Mass/Vol] 8 mg/dL 5-40 [facility] Work Phone: Serum or plasma creatinine m easurement (mass/volume)on 05-25-2022 Creatinine [Mass/Vol] 0.73 mg/dL 0.55-1.02 [facility] Work Phone: Comment on above: The validity of the calculated GFR & GFRAA in patients over 70 years has not been determined. Clinical correlation is essential. Serum or plasma ferritin andrei surement (mass/volume)on 05-25-2022 Ferritin [Mass/Vol] 159 ng/mL 8-252 [facility] Work Phone: Serum or plasma low density lipoprotein (LDL) cholesterol measurement (mass/volume)on 05-25-2022 Cholesterol in LDL [Mass/Vol] 76 mg/dL 0-130 [facility] Work Phone: Serum or plasma urea nitroge n measurement (mass/volume)on 05-25-2022 Urea nitrogen [Mass/Vol] 12 mg/dL 7-18 [facility] Work Phone: Thin prep Papanicolaou smear with manual screeningon 05-25-2022 Thin prep Papanicolaou smear with manual screening 10 5-15 [facility] Work Phone: Vital Signs Date Time Vital Sign Value Performing Clinician Faci lity 11-06-2024 07:50-0400 Body temperature 98.7 [degF] Dr. Priyanka Julio MD Work Phone: [facility] 11-06-2024 07:50-0400 Diastolic blood pressure 68 mm[Hg] Dr. Priyanka Julio MD Work Phone: [facility] 11-06-2024 07:50-0400 Heart rate 67 /min Dr. Priyanka Julio MD Work Phone: [facility] 11-06-2024 07:50-0400 Respiratory rate 16 /min Dr. Priyanka Julio MD Work Phone: [facility] 11-06-2024 07:50-0400 SaO2% (BldA) [Mass fraction] 100 % Dr. Priyanka Julio MD Work Phone: [facility] 11-06-2024 07:50-0400 Systolic blood pressure 132 mm[Hg] Dr. Priyanka Julio MD Work Phone: [facility] 08-20-2024 08:23-0400 Body height 167.[address] Priyanka Julio MD Work Phone: [facility] 08-20-2024 08:23-0400 Body mass index (BMI) [Ratio] 22.4 kg/m2 Dr. rPiyanka Julio MD Work Phone: [facility] 08-20-2024 08:23-0400 Body temperature 98.1 [degF] Dr. Priyanka Julio MD Work Phone: [facility] 08-20-2024 08:23-0400 Body weight 63.[address] Priyanka Julio MD Work Phone: [facility] 08-20-2024 08:23-0400 Diastolic blood pressure 82 mm[Hg] Dr. Priyanka Julio MD Work Phone: [facility] 08-20-2024 08:23-0400 Heart rate 66 /min Dr. Priyanka Julio MD Work Phone: [facility] 08-20-2024 08:23-0400 Respiratory rate 16 /min Dr. Priyanka Julio MD Work Phone: [facility] 08-20-2024 08:23-0400 SaO2% (BldA) [Mass fraction] 97 % Dr. Priyanka Julio MD Work Phone: [facility] 08-20-2024 08:23-0400 Systolic blood pressure 138 mm[Hg] Dr. Priyanka Julio MD Work Phone: [facility] Encounters Encounter Date Encounter Type Care Provider Facility Start: 12-17-2024 End: 12-17-[address] Priyanka Julio MD Work Phone: -[facility] Start: 12-17-2024 End: 12-17-[address] Santana Duran [facility] [place] Work Phone: Start: 12-17-2024 End: 12-17-2024 ambulatory Priyanka Julio Facility:[facility] Start: 11-26-2024 End: 11-26-[address] Priyanka Julio MD Work Phone: [facility] Work Phone: Start: 11-26-2024 End: 11-26-2024 Patient encounter procedure Viviana Stiles RECORDS SECTION SUPERVISOR-C -Radiology [place] Work Phone: Start: 11-26-2024 End: 11-26-2024 ambulatory Viviana Stiles RECORDS SECTION SUPERVISOR Facility:[facility] Start: 11-06-2024 End: 11-06-2024 Patient encounter procedure Rajat Person PA [facility] Work Phone: Start: 11-06-2024 End: 11-06-[address] Priyanka Julio MD Work Phone: [facility] Work Phone: Start: 10-07-2024 ambulatory PRIYANKA JULIO cility:[facility] Start: 10-07-2024 End: 10-07-2024 Subsequent hospital visit by physician Screen Mammo Bath [facility] M[facility]MO REFLE[facility] Comment on above: saqib screen Start: 08-20-2024 End: 08-20-2024 Patient encounter procedure Rajat Person PA -[facility] Work Phone: Start: 08-20-2024 End: 08-20-2024 ambulatory Priyanka Julio Facility:[facility] Start: 10-05-2023 Documentation procedure Mammog rachel Coordinator [facility] NOT [facility]IST[facility] Start: 10-05-2023 Letter encounter Mammography Coordinator [facility] Start: 10-04-2023 End: 10-04-2023 Subsequent hospital visit by physician Screen Mammo Bath RADIO MAMMO REFLECTIONS [facility] Comment on above: screening Start: 08-30-2022 Documentation procedure Mammog rachel Coordinator [facility] Start: 08-30-2022 Letter encounter Mammography Coordinator [facility] NOT [facility]IST[facility] Start: 08-29-2022 End: 08-29-2022 Subsequent hospital visit by physician Screen Mammo Bath RADIO MAMMO REFLECTIONS [facility] Comment on above: saqib screen Start: 06-02-2022 End: 06-02-2022 ambulatory [facility] Work Phone: Start: 06-02-2022 End: 06-02-2022 Patient encounter procedure [facility], Specimen Start: 05-25-2022 End: 05-25-2022 ambulatory [facility] Work Phone: Start: 05-25-2022 End: 05-25-2022 Patient encounter procedure [facility], Therese Zelaya Start: 08-26-2021 Documentation procedure Mammog rachel Coordinator [facility] Start: 08-26-2021 Letter encounter Mammography Coordinator [facility] Start: 08-25-2021 End: 08-25-2021 Subsequent hospital visit by physician Screen Mammo Bath RADIO MAMMO REFLECTIONS [facility] Comment on above: Screening Start: 09-04-2018 End: 09-04-2018 Patient encounter procedure RAJATRAFIA YAÑEZ Facility:[facility] Start: 05-22-2018 Patient encounter procedure RAJAT YAÑEZ Facility:[facility] Procedures Date Procedure Procedure Detail Performing Clinician Start: 12-17-2024 Vitamin D, 25-hydrox y measurement Dr. Priyanka Julio MD Work Phone: Comment on above: Vitamin D StatusDefi ciency: <20 ng/mL (50nmol/L)Insufficiency: 20-30 ng/mL (50-75 nmol/L)Sufficiency: 30-100 ng/mL (75-250 nmol/L)Toxicity: >100 ng/mL (>250 nmol/L) Start: 11-26-2024 X-ray of ankle, thre e or more views Dr. Priyanka Julio MD Work Phone: Start: 08-29-2022 Mammography Mammograph y Coordinator Start: 08-25-2021 Mammography Mammograph y Coordinator Start: 09-04-2018 Mammography Screen Bat h Plan of Treatment Date Care Activity Detail Author Start: 02-14-2036 RSV Vaccine (1 - 1-dose 75+ series) RSV Vaccine (1 - 1-dose 75+ series) [facility] Start: 05-15-2029 Urine microalbumin profile DTaP,Tdap,Td Vaccine (2 - Td or Tdap) [facility] Start: 10-03-2024 Screening for malignant neoplasm of breast Mammogram Screening [facility] Start: 02-11-2024 Covid-19 Vaccine () Covid-19 Vaccine () [facility] Start: 08-30-2023 Mammography MAMMOGRAM [facility] Start: 08-30-2023 Screening for malignant neoplasm of breast Mammogram Screening [facility] Start: 06-12-2023 Behavioral Health Screening Behavioral Health Screening [facility] Start: 02-10-2023 Covid-19 Vaccine ( season) Covid-19 Vaccine () [facility] Start: 08-25-2022 Mammography MAMMOGRAM [facility] Start: 06-12-2022 DEPRESSION ASSESSMENT DEPRESSION ASSESSMENT [facility] Start: 02-10-2022 Influenza vaccination INFLUENZA (#1) [facility] Start: 2021 RSV Vaccine (1 - 1-dose 60+ series) RSV Vaccine (1 - 1-dose 60+ series) [facility] Start: 02-10-2021 Influenza vaccination INFLUENZA (#1) [facility] Start: 09-05-2019 Mammography MAMMOGRAM [facility] Start: 07-10-2019 Shingrix Vaccine (2 of 2) Shingrix Vaccine (2 of 2) [facility] Start: 2011 Pneumococcal Vaccine: 50+ (1 of 1 - PCV) Pneumococcal Vaccine: 50+ (1 of 1 - PCV) [facility] Start: 2011 SHINGRIX VACCINE (1 of 2) SHINGRIX VACCINE (1 of 2) [facility] Start: 2006 COLOGUARD (FIT-DNA) COLOGUARD (FIT-DNA) [facility] Start: 2006 Colonoscopy COLONOSCOPY [facility] Start: 2006 COLORECTAL CANCER SCREENING COLORECTAL CANCER SCREENING [facility] Start: [address] COLONOGRAPHY [facility] Start: 2006 DIABETES SCREEN DIABETES SCREEN [facility] Start: 2006 Diabetes Screening Diabetes Screening [facility] Start: 2006 FECAL OCCULT BLOOD FECAL OCCULT BLOOD [facility] Start: 2006 Lipid panel Lipid Screening [facility] Start: 2006 LIPID SCREEN LIPID SCREEN [facility] Start: 2006 Screening for malignant neoplasm of colon [facility] Start: 2006 SIGMOIDOSCOPY SIGMOIDOSCOPY [facility] Start: 1991 HPV TESTING HPV TESTING [facility] Start: 1991 Screening for malignant neoplasm of cervix HPV Testing [facility] Start: 1982 PAP TESTING PAP TESTING [facility] Start: 1982 Screening for malignant neoplasm of cervix [facility] Start: 02-14-1980 Urine microalbumin profile DTAP,TDAP,TD (1 - Tdap) [facility] Start: 1979 Anxiety Screening Anxiety Screening [facility] Start: 1979 Depression Screening Depression Screening [facility] Start: 1979 HEPATITIS C SCREENING HEPATITIS C SCREENING [facility] Start: 1979 Hepatitis C screening Hepatitis C Screening [facility] Start: 1979 HIV SCREENING HIV SCREENING [facility] Start: 1979 HIV screening HIV Screening [facility] Start: 1973 Adult depression screening assessment DEPRESSION SCREENING [facility] Start: 1966 COVID-19 VACCINE (1) [facility] Start: 1961 COVID-19 VACCINE (#1) COVID-19 VACCINE (#1) [facility] Path report.final Dx Spec [facility] Work Phone: Payers Date Payer Category Payer Self-pay [id number] 2017 Blue [facility] BLUE ACCE SS PPO Member Subscriber Plan / Payer (Effective 2017-Present) Name: Ortiz Sams Relation to Subscriber: Self Name: Ortiz Sams Payer ID: [id number] (NAIC) Type: PPO Address: [facility] [address] [place] [id number] 2017 Unknown ZA BLUE ACCE SS PPO [id number] 2017-Present [phone] [address] [place] [address] PPO [id number] 2017 Unknown ZA [place] PPO [id number] 2017-Present [phone] [address] [place] [address] PPO [id number] 2017 Unknown [id number] 1960 Unknown [id number] 1960 Unknown [id number] Private Health Insurance [id number] Self-pay [id number] Unknown [id number] Unknown [id number] Unknown [id number] Unknown [id number] Unknown [id number] Social History Date Type Detail Facility Tobacco smoking stat [email or web address] Tobacco smoking consumption unknown [facility] Start: 1960 Sex Assigned At Not on file C [facility] Start: 08-15-2021 End: 08-25-2021 Exposure to SARS-CoV-2 (event) Not sure [facility] Start: 1960 Sex Assigned At Female [facility] Start: 08-29-2022 End: 10-07-2024 History of Social function [facility] Start: 08-29-2022 End: 10-07-2024 Area Deprivation Index [facility] National Score (1-10 0), lower number is lower risk 57 [facility] Start: 08-20-2024 Tobacco smoking stat us NHIS Never smoked tobacco (finding) [facility] Clinical Notes 08-26-2021 to 11-27-2024 Candis Yanez, RT(R) - 10/07/2024 3:20 PM EDTLetter - Coordinator, Mammography - 10/05/2023 10:09 AM EDTLetter - Coordinator, Mammography - 10/05/2023 10:09 AM EDT Note Date & Type Note Facility 11-27-2024 Radiology Diagnostic study note [facility] Imaging Services [address] [place] [address] Ankle min 3 Views MR#: [id number] Acct: [id number] Name: ORTIZ SAMS Rep #: [id number] : 1960 F 64 From: Ludy Felix MD PCP: Dr. Priyanka Julio MD Status: REG CLI Study:Ankle min 3 Views Date of Exam: Exam# [id number] Ordering Dr: Viviana Stiles NP PROCEDURE: ANKLE MIN 3 VIEWS 11/26/2024 REASON FOR EXAM: LEG SWELLING TECHNIQUE: ANKLE MIN 3 VIEWS COMPARISON: None. FINDINGS: Chronic deformity of the distal fibular diaphysis secondary to healed fracture. Well corticated bone fragment adjacent to the tip of the medial malleolus, chronic finding. Calcaneal spur formation. Mild osteopenia of the visualized bones. Degenerative joint disease. No fracture or dislocation is seen. No lytic or blastic bone lesion is noted. . RAD/Ankle min 3 Views IMPRESSION: No evidence for acute abnormality. Reading [facility] CC: Viviana Stiles; Dr. 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 Author [...] PATIENT PRESENTS WITH AN IMPLANTABLE OR ATTACHED SHIP'S PILOT: No RADIOLOGY DEPARTMENT: Mammography PERIPHERAL IV DATA: Not applicable SIGNED BY: RT Monica(Francis) October 07, 2024 2:51 PM [facility] 10-05-2023 Note Formatting of this n ote might be different from the original. [address] [address] October 05, 2023 PID: [id number] Ortiz Sams [address] [place] [address] Dear Thien Latrell, We are pleased to inform you that the results of your recent breast imaging exam on 10/04/2023 are normal. Your mammogram demonstrates that you have dense breast tissue, which could hide abnormalities. Dense breast tissue, in and of itself, is a relatively common condition. Therefore, this information is not provided to cause undue concern; rather, it is to raise your awareness and promote discussion with your health care provider regarding the presence of dense breast tissue in addition to other risk factors. Early detection of cancer is very important. We also understand recommendations regarding breast cancer screening are controversial. Please discuss with your primary care provider which strategy is best for you and whether a mammogram is right for you. Your imaging studies and report will be kept on file at [facility] as part of your permanent medical record and are available for your continuing care. Thank you for allowing us to help in meeting your health care needs. Sincerely, Dr. Villalta Interpreting Radiologist [facility] (Normal over 40) [facility] 10-05-2023 Miscellaneous Notes [facility] [address] [place] [address] October 05, 2023 PID: [id number] Ortiz Sams [address] [place] [address] Dear Ms. Marquezginger, We are pleased to inform you that the results of your recent breast imaging exam on 10/04/2023 are normal. Your mammogram demonstrates that you have dense breast tissue, which could hide abnormalities. Dense breast tissue, in and of itself, is a relatively common condition. Therefore, this information is not provided to cause undue concern; rather, it is to raise your awareness and promote discussion with your health care provider regarding the presence of dense breast tissue in addition to other risk factors. Early detection of cancer is very important. We also understand recommendations regarding breast cancer screening are controversial. Please discuss with your primary care provider which strategy is best for you and whether a mammogram is right for you. Your imaging studies and report will be kept on file at [facility] as part of your permanent medical record and are available for your continuing care. Thank you for allowing us to help in meeting your health care needs. Sincerely, Dr. Villalta Interpreting Radiologist [facility] (Normal over 40) documented in this encounter [facility] 10-04-2023 History of Presen t illness Narrative Radiology Service Progress Note PATIENT NAME: Ortiz Sams DATE OF SERVICE: October 04, 2023 TIME: 3:10 PM PATIENT IDENTITY VERIFICATION COMPLETED USING TWO (2) IDENTIFIERS: Name and Date of confirmed by patient verbally. FALL SCREENING: Has the patient had 2 falls in the last year or 1 fall with injury or currently using an Ambulatory Assistive Device (Walker, Cane, Wheelchair, Crutches, etc.)? No PATIENT GENDER DATA: Female. status: : No status: NO. PATIENT RELEVANT IMPLANT DATA REVIEWED: Yes PATIENT PRESENTS WITH AN IMPLANTABLE OR ATTACHED SHIP'S PILOT: No RADIOLOGY DEPARTMENT: Mammography PERIPHERAL IV DATA: Not applicable SIGNED BY: RT Moniac(R) October 04, 2023 3:10 PM documented in this encounter [facility] 08-30-2022 Miscellaneous Notes [facility] [address] [place] [address] August 30, 2022 PID: [id number] Ortiz Sams [address] [place] [address] Dear Ms. Sams, We are pleased to inform you that the results of your recent breast imaging exam on 08/29/2022 are normal. Early detection of cancer is very important. We also understand recommendations regarding breast cancer screening are controversial. Please discuss with your primary care provider which strategy is best for you and whether a mammogram is right for you. Your imaging studies and report will be kept on file at [facility] as part of your permanent medical record and are available for your continuing care. Thank you for allowing us to help in meeting your health care needs. Sincerely, Dr. Villalta Interpreting Radiologist [facility] (Normal over 40) documented in this encounter [facility] 08-29-2022 History of Presen t illness Narrative Radiology Service Progress Note PATIENT NAME: Ortiz Sams DATE OF SERVICE: August 29, 2022 TIME: 3:27 PM PATIENT IDENTITY VERIFICATION COMPLETED USING TWO (2) IDENTIFIERS: Name and Date of confirmed by patient verbally. FALL SCREENING: Has the patient had 2 falls in the last year or 1 fall with injury or currently using an Ambulatory Assistive Device (Walker, Cane, Wheelchair, Crutches, etc.)? No PATIENT GENDER DATA: Female. status: : No status: NO. PATIENT RELEVANT IMPLANT DATA REVIEWED: Yes RADIOLOGY DEPARTMENT: Mammography PERIPHERAL IV DATA: Not applicable SIGNED BY: RT Adriana(R) August 29, 2022 3:27 PM documented in this encounter [facility] 08-26-2021 Miscellaneous Notes [facility] [address] [place] [address] August 26, 2021 PID: [id number] Ortiz Sams [address] [place] [address] Dear Ms. Sams, We are pleased to inform you that the results of your recent breast imaging exam on 08/25/2021 are normal. Early detection of cancer is very important. We also understand recommendations regarding breast cancer screening are controversial. Please discuss with your primary care provider which strategy is best for you and whether a mammogram is right for you. Your imaging studies and report will be kept on file at [facility] as part of your permanent medical record and are available for your continuing care. Thank you for allowing us to help in meeting your health care needs. Sincerely, Dr. Chellman Interpreting Radiologist [facility] (Normal over 40) documented in this encounter [facility] Evaluation note No assessment inform ation available [facility] Work Phone: Reason for referral (narrative) No reason for referral information available [facility] Work Phone: Summary Purpose Family History No Family History Records FoundNo Family History Records FoundNo Family History Records Found Advance Directives No Advanced Directives Records FoundNo Advanced Directives Records FoundNo Advanced Directives Records Found Chief Complaint and Reason for Visit Chief Complaint Admit Date ST/BILAT EAR PAIN/PEREZ August 20, 2024 8: 01am [facility]/PEREZ/ST November 06, 2024 7:46a m Chief Complaint Admit Date ST/BILAT EAR PAIN/PEREZ August 20, 2024 8: 01am [facility]/PEREZ/ST November 06, 2024 7:46a m RIGHT ANKLE November 26, 2024 10:5 9am Chief Complaint Admit Date [facility]/PEREZ/ST November 06, 2024 7:46a m RIGHT ANKLE November 26, 2024 10:5 9am LABS/ STRESS FRACTURE-RIGHT ANKLE December 172024 9:03am Additional Source Comments INFORMATION SOURCE (unrecogn ized section and content) DATE CREATED AUTHOR 09/06/2018 [facility] DATE CREATED AUTHOR AUTHOR'S ORGANIZ ATION 10/08/2024 [facility] DATE CREATED AUTHOR AUTHOR'S ORGANIZ ATION 12/28/2024 [facility] Source Comments (unrecognize d section and content) In the event this informatio n is protected by the Federal Confidentiality of Alcohol and Drug Abuse Patient Records regulations: The Federal rules restrict any use of the information to criminally investigate or prosecute any alcohol or drug abuse patient[facility] the event this information is protected by the Federal Confidentiality of Alcohol and Drug Abuse Patient Records regulations: The Federal rules restrict any use of the information to criminally investigate or prosecute any alcohol or drug abuse patient.[facility] the event this information is protected by the Federal Confidentiality of Alcohol and Drug Abuse Patient Records regulations: The Federal rules restrict any use of the information to criminally investigate or prosecute any alcohol or drug abuse patient.[facility] the event this information is protected by the Federal Confidentiality of Alcohol and Drug Abuse Patient Records regulations: The Federal rules restrict any use of the information to criminally investigate or prosecute any alcohol or drug abuse patient.[facility] the event this information is protected by the Federal Confidentiality of Alcohol and Drug Abuse Patient Records regulations: The Federal rules restrict any use of the information to criminally investigate or prosecute any alcohol or drug abuse patient.[facility] the event this information is protected by the Federal Confidentiality of Alcohol and Drug Abuse Patient Records regulations: The Federal rules restrict any use of the information to criminally investigate or prosecute any alcohol or drug abuse patient.[facility] the event this information is protected by the Federal Confidentiality of Alcohol and Drug Abuse Patient Records regulations: The Federal rules restrict any use of the information to criminally investigate or prosecute any alcohol or drug abuse patient.[facility] Reason for Visit (unrecogniz ed section and content) Reason Comments Radiology Mammogram Care Teams (unrecognized sec tion and content) Car Bracer Relationship Specialty Start Date End Date Priyanka Julio MD [address] [place] [address] PCP - General Family Practice 07/24/17 Car Bracer Relationship Specialty Start Date End Date Priyanka Julio MD [address] [place] [place] [id number] PCP - General Family Practice 07/24/17 Car Bracer Relationship Specialty Start Date End Date Priyanka Julio MD [address] [place], [place] [id number] PCP - General Family Medicine 07/24/17 Car Bracer Relationship Specialty Start Date End Date Priyanka Julio MD [address] [place], [place] [id number] PCP - General Family Medicine 07/24/17 Car Bracer Relationship Specialty Start Date End Date Priyanka Julio MD [address] [place], [place] [id number] PCP - General Family Medicine 07/24/17 Car Bracer Relationship Specialty Start Date End Date Priyanka Julio MD [address] [place], [place] [phone] PCP - General Family Medicine 07/24/17 Car Bracer Relationship Specialty Start Date End Date Priyanka Julio MD [address] [place], [place] [phone] PCP - General Family Medicine 07/24/17 Team Status: Active Member Role Status Dates Dr. Priyanka Julio MD Family Provider Active Dr. Priyanka Julio MD Primary Care Provider Acti ve Team Status: Inactive Member Role Status Dates Dr. Priyanka Julio MD Primary Care Provider Acti ve Start: August 20, 2024 End: August 20, 2024 Dr. Priyanka Julio MD Referring Provider Active Start: August 20, 2024 End: August 20, 2024 Rajat ANTUNEZ PA Attending Provider Active Start: August 20, 2024 End: August 20, 2024 Team Status: Inactive Member Role Status Dates Dr. Priyanka Julio MD Primary Care Provider Acti ve Start: November 06, 2024 End: November 06, 2024 Dr. Priyanka Julio MD Referring Provider Active Start: November 06, 2024 End: November 06, 2024 Rajat ANTUNEZ PA Attending Provider Active Start: November 06, 2024 End: November 06, 2024 Team Status: Inactive Member Role Status Dates Dr. Priyanka Julio MD Primary Care Provider Acti ve Start: November 26, 2024 End: November 26, 2024 Viviana Stiles NP RECORDS SECTION SUPERVISOR-C Attending Provider Active Start: November 26, 2024 End: November 26, 2024 Viviana Stiles NP RECORDS SECTION SUPERVISOR-C Referring Provider Active Start: November 26, 2024 End: November 26, 2024 Team Status: Active Member Role/Relationship Status Dates Dr. Priyanka Julio MD Primary Care Provider Acti ve Team Status: Inactive Member Role/Relationship Status Dates Dr. Priyanka Julio MD Primary Care Provider Acti ve Start: November 06, 2024 End: November 06, 2024 Dr. Priyanka Julio MD Referring Provider Active Start: November 06, 2024 End: November 06, 2024 Rajat ANTUNEZ, PA Attending Provider Active Start: November 06, 2024 End: November 06, 2024 Team Status: Inactive Member Role/Relationship Status Dates Dr. Priyanka Julio MD Primary Care Provider Acti ve Start: November 26, 2024 End: November 26, 2024 Viviana Stiles NP RECORDS SECTION SUPERVISOR-C Attending Provider Active Start: November 26, 2024 End: November 26, 2024 Viviana Stiles NP, NP-C Referring Provider Active Start: November 26, 2024 End: November 26, 2024 Team Status: Inactive Member Role/Relationship Status Dates Dr. Priyanka Julio MD Primary Care Provider Acti ve Start: December 17, 2024 End: December 17, 2024 Dr. Santana Duran DPM Attending Provider Active Start: December 17, 2024 End: December 17, 2024 Dr. Santana Duran DPM Referring Provider Active Start: December 17, 2024 End: December 17, 2024 Goals (unrecognized section and content) Goals may be documented in a n alternate sectionGoals may be documented in an alternate sectionGoals may be documented in an alternate sectionGoals may be documented in an alternate sectionGoals may be documented in an alternate section FOR RECORDS PERTAINING TO PATIENTS WHO ARE OR HAVE BEEN ENROLLED IN A CHEMICAL DEPENDENCY/SUBSTANCEABUSE PROGRAM, SOME INFORMATION MAY BE OMITTED. This clinical summary was aggregated from multiple sources. Caution should be exercised in using it in the provision of clinical care. This summary normalizes information from multiple sources, and as a consequence, information in this document may materially change the coding, format and clinical context of patient data. In addition, data may be omitted in some cases. CLINICAL DECISIONS SHOULD BE BASED ON THE PRIMARY CLINICAL RECORDS. [facility] [employer] [facility]. provides no warranty or guarantee of the accuracy or completeness of information in this document.
== END | disposition home or self-care (01) ==
LOC: CVS 12:32
PROVIDERS: PCP Family Medicine; Referring Provider Podiatrist; Visit Provider Podiatrist
DX: M79.661 Pain in right lower leg (principal)
CPT/HCPCS: 93971

== ENCOUNTER → 2025-02-19 | Outpatient (CLI) | payer BC, SELFPAY ==
[2025-02-19 13:21] LABS: AST(SGOT) 24 U/L (<=31); Alanine Aminotransfer ALT/SGPT 15 U/L (<=34); Albumin, Serum 4.5 g/dL (3.4-4.8); Alkaline Phosphatase 79 U/L (35-104); Anion Gap 14 (5-15); BUN 12 mg/dL (4-19); BUN/Creat Ratio 17.0 RATIO (10-20); Calcium,Total 10.0 mg/dL (7.6-11.0); Carbon Dioxide 22.9 mmol/L (21.0-32.0); Chloride 103 mmol/L (98-108); Cholesterol 165 mg/dL (<=200); Globulin 2.8 g/dL (2.2-4.2); Glucose 126 mg/dL (70-99); Low Density Lipoprotein Calc. 65 mg/dL; Potassium 4.0 mmol/L (3.3-5.1); Triglycerides 58 mg/dL; Very Low Density Lipoprotein 12 mg/dL (5-40); cholesterol:hdl ratio screen 1.86
== END | disposition home or self-care (01) ==
LOC: MFPLAB 09:36
PROVIDERS: PCP Family Medicine; Visit Provider Family Medicine
DX: Z13.29 Encounter for screening for other suspected endocrine disorder (principal); R73.01 Impaired fasting glucose; Z13.220 Encounter for screening for lipoid disorders
CPT/HCPCS: 36415; 80053; 80061; 84443

== ENCOUNTER → 2025-03-06 | Outpatient (CLI) | payer BC, SELFPAY ==
--- NOTE | 2025-03-06 13:22 | BD_ITS ---
PROCEDURE: DEXA BONE DENSITY STUDY 03/06/2025 REASON FOR EXAM: F, age 65 y/o . Patient is postmenopausal. TECHNIQUE: Procedure Code: BDDBD Modality: DX Procedure: DEXA BONE DENSITY STUDY COMPARISON: None FINDINGS: BMD and T-SCORES Lumbar spine: 0.814 g/cm2, T-score -2.4 Levels: L2 through L4 Left femoral neck: 0.448 g/cm2, T-score -3.6 Left total hip: 0.565 g/cm2, T-score -3.1 Right femoral neck: 0.386 g/cm2, T-score -4.2 Right total hip: 0.528 g/cm2, T-score -3.4 The World Health Organization has defined the following categories based on bone density: Normal bone density: T-score equal to or greater than -1.0 Osteopenia: T-score between -1.0 and -2.5 Osteoporosis: T-score equal to or less than -2.5 FRAX (or Comparable) Fracture Risk Assessment: 10 Year Probability of Fracture: Major Osteoporotic Fracture: 37% Hip Fracture: 19% (Note: FRAX is not to be reported in setting of normal range bone density, osteoporosis on DEXA, known history of osteoporosis, prior osteoporotic hip or vertebral fracture, or for any patient undergoing pharmacological treatment for bone loss.) The National Osteoporosis Foundation (NOF) recommends pharmacological treatment for patients with a FRAX 10-year risk of 3% or higher for a hip fracture, or 20% or higher for a major osteoporotic fracture, to prevent osteoporosis and reduce fracture risk. The patient does meet the pharmacological treatment recommendations for prevention of osteoporosis. BD/Dexa Bone Density Study IMPRESSION: OSTEOPOROSIS. Recommend follow-up as clinically warranted. Reading Location: [id number]
== END | disposition home or self-care (01) ==
LOC: OPBD 13:11
PROVIDERS: PCP Family Medicine; Referring Provider Family Medicine; Visit Provider Family Medicine
DX: Z13.820 Encounter for screening for osteoporosis (principal); M81.0 Age-related osteoporosis without current pathological fracture
CPT/HCPCS: 77080

== ENCOUNTER → 2025-03-11 | Outpatient (CLI) | payer BC, SELFPAY ==
--- OUTSIDE RECORDS SUMMARY | 2024-10-07 14:39 | XMS RPT_ITS ---
Author Name Auto Generated Organization OHIP Care Team Providers Care Chargemaster Specialist Name Role Phone PRIYANKA MUIR Referring PRIYANKA Mccarty Primary Care Unavailabl e PROBLEMS DATE TYPE CONDITION / CODE ATTENDING STATUS ELIJAH RCE 10/07/2024 Active Radiology Mammog rhea / UNK(Unknown) NA Active [facility] PROCEDURES No Procedure Records Found RESULTS ANA CRISTINA SCREENING W LYNN Observed: 3:22 PM Status: F Source: [facility] * * *Final Report* * * DATE OF EXAM: Oct 07 2024 3:22PM [id number] - [facility] SCREENING W LYNN / PROCEDURE REASON: screening mamm * * * * Physician Interpretation * * * * [facility] BREAST CTR-BATH [address] [place] [address] [address] [place] [address] #[id number] - [facility] SCREENING W LYNN HISTORY: 64 year-old patient seen for screening. Patient is asymptomatic in both breasts. Patient states no personal history of breast cancer. COMPARISON STUDIES: The present examination has been compared to prior imaging studies dated 09/04/2018 (mammogram), 08/25/2021 (mammogram), 08/29/2022 (mammogram) and 10/04/2023 (mammogram). MAMMOGRAM TECHNIQUE: The study was acquired using full field digital technology and interpreted from soft copy. Digital Breast Tomosynthesis (DBT) images were obtained and used to assist in the interpretation of this examination. MAMMOGRAM FINDINGS: The breasts are heterogeneously dense, which may obscure small masses. No suspicious masses, calcifications or other abnormalities are seen in either breast. There are no significant interval changes. IMPRESSION: There is no mammographic evidence of malignancy in either breast. Routine screening mammogram is recommended. Annual mammogram will be due in 1 year. BI-RADS Category 1: Negative RISK: Based on the Tyrer-Cuzick (TC) risk assessment model, this patient has a 5.5% lifetime risk of developing breast cancer, meaning they are at average risk for developing breast cancer. However, this is only an estimate based on available history provided on the patient's questionnaire. We encourage all patients to talk with their providers about these results, further recommendations for managing breast health, and appropriate supplemental screening options if the patient has dense breast tissue. Interpreting Radiologist: Frederick Mack M.D. Electronically signed on: 10/08/2024 Slitter And Rewinder Machine Operator: ARABELLA Transcribe Date/Time: Oct 07 2024 2:49P Dictated by : FREDERICK MACK MD This examination was interpreted and the report reviewed and electronically signed by: FREDERICK MACK MD on Oct 08 2024 8:59AM EST [id number] PROGRESS Observed: 10/07/2024 3:20 PM Status: COMPLETED Source: [facility] HNO ID: [id number] Author: CANDIS YANEZ RT(R) Service: ? Author Type: Technologist Type: Progress Notes Filed: 10/07/2024 14:51 Note Text: Radiology Service Progress Note PATIENT NAME: Ortiz Sams DATE OF SERVICE: October 07, 2024 TIME: 2:51 PM PATIENT IDENTITY VERIFICATION COMPLETED USING TWO (2) IDENTIFIERS: Name and Date of confirmed by patient verbally. FALL SCREENING: Has the patient had 2 falls in the last year or 1 fall with injury or currently using an Ambulatory Assistive Device (Walker, Cane, Wheelchair, Crutches, etc.)? No PATIENT GENDER DATA: Assigned female at . status: : No status: NO. PATIENT RELEVANT IMPLANT DATA REVIEWED: Yes PATIENT PRESENTS WITH AN IMPLANTABLE OR ATTACHED SCREENING REPRESENTATIVE: No RADIOLOGY DEPARTMENT: Mammography PERIPHERAL IV DATA: Not applicable SIGNED BY: RT Monica(R) October 07, 2024 2:51 PM ALLERGIES No Allergies Records Found ENCOUNTERS ADMIT/DISCHARGE ACCOUNT NUMBER ADMITTING ENCOUNTER CLASS LOC ATION SOURCE 10/07/2024 [id number] [facility] PAYERS ENCOUNTER GUARANTOR PAYER SUBSCRIBER SOURCE 10/07/2024 Primary Insuranc e:BLUE ACCESS PPOPolicy Number: [id number] Date:[id number] Name:Alec POSADA: [id number] [place] [address] [facility]
[2025-03-11 12:20] LABS: Ionized Calcium Order ORDER TUBE
[2025-03-11 16:17] LABS: PTHIN 45 pg/mL (11-61)
[2025-03-11 16:22] LABS: Magnesium 2.0 mg/dL (1.5-2.2); Vitamin D,25 Hydroxy 40.8 ng/mL (30-100)
== END | disposition home or self-care (01) ==
LOC: MFPLAB 11:17
PROVIDERS: PCP Family Medicine; Referring Provider Family Medicine; Visit Provider Family Medicine
DX: M81.0 Age-related osteoporosis without current pathological fracture (principal)
CPT/HCPCS: 82306; 83735; 83970; 84100

== ENCOUNTER → 2025-04-01 | Outpatient (CLI) | payer BC, SELFPAY ==
--- NOTE | 2025-04-01 | LES_PTH ---
PATIENT: OR[facility]Z [facility]RI[id number] AGE/SX: 65/F ROOM: RE04/01/[address]: Dr. Trino Julio MD : 1960 BED: DIS: 04/01/2025 SPEC #: [id number] RECD: 04/01/25 07:30 STATUS: ANNITA WEINER #: [id number] MAGEN: 04/01/25 00:[address]: Trino Julio DEPT: SURGICAL PATHOLOGY RECD BY: Isael García Tissues: A - Skin of leg, NOS Procedures: Surgery Specimen Level IV HEADER OPERATION: Right leg excision PRE-OP DIAGNOSIS: Rule out squamous cell carcinoma, right leg TISSUE SUBMITTED: A- Right leg excision MICROSCOPIC DIAGNOSIS A. 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 Note: Assessment of the tissue is limited by marked thermal and mechanical artifacts. Clinical correlation is necessary. If the lesion should persist or recur, complete excision would be advised. * MICROSCOPIC DESCRIPTION Slides are reviewed. GROSS DESCRIPTION A. Received in formalin labeled with the patient's name and date of . Designated as R leg is a 0.7 x 0.6 cm gutierrez skin punch excised to a depth of 0.6 cm. There is a 0.6 x 0.4 cm light to dark brown, raised, granular lesion with an overlying scab, comprising approximately 90% of the epidermal surface and located <0.1 cm from the peripheral edge. The resection margin is inked green and the specimen is bisected. Entirely submitted in 1 cassette. [place] 04/02/2025 CPT:33532
--- NOTE | 2025-04-01 | LES_PTH ---
PATIENT: ORTIZ GUERRIER [facility] U#:[id number] AGE/SX: 65/F ROOM: RE04/01/[address]: Dr. Trino Julio MD : 1960 BED: DIS: 04/01/2025 SPEC #: [id number] RECD: 04/01/25 07:30 STATUS: ANNITA WEINER #: [id number] MAGEN: 04/01/25 00:[address]: Trino Julio DEPT: SURGICAL PATHOLOGY RECD BY: Isael García Tissues: A - Skin of leg, NOS Procedures: Surgery Specimen Level IV HEADER OPERATION: Right leg excision PRE-OP DIAGNOSIS: Rule out squamous cell carcinoma, right leg TISSUE SUBMITTED: A- Right leg excision MICROSCOPIC DIAGNOSIS A. 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 Note: Assessment of the tissue is limited by marked thermal and mechanical artifacts. Clinical correlation is necessary. If the lesion should persist or recur, complete excision would be advised. * MICROSCOPIC DESCRIPTION Slides are reviewed. GROSS DESCRIPTION A. Received in formalin labeled with the patient's name and date of . Designated as R leg is a 0.7 x 0.6 cm gutierrez skin punch excised to a depth of 0.6 cm. There is a 0.6 x 0.4 cm light to dark brown, raised, granular lesion with an overlying scab, comprising approximately 90% of the epidermal surface and located <0.1 cm from the peripheral edge. The resection margin is inked green and the specimen is bisected. Entirely submitted in 1 cassette. [place] 04/02/2025 CPT:14219
--- OUTSIDE RECORDS SUMMARY | 2025-04-01 21:34 | XMS RPT_ITS | CCD ---
Author Organization [facility] Care Team Providers Care Register Of Wills Name Role Phone RAJAT YAÑEZ Referring Unavailable PRIYANKA JULIO Primary Care RAJAT Mcclure Referring Unavailable PRIYANKA JULIO Primary Care Priyanka Mccarty MD Primary Care Provider Priyanka Julio MD Primary Care Provider Priyanka Julio MD Primary Care Provider PRIYANKA JULIO Referring PRIYANKA Mccarty Primary Care UnavailDr. Priyanka Lobato MD Primary Care Provider Dr. Priyanka Julio MD Referring Provider [phone] Rajat Avila Attending Provider Go CYLINDER HEAD ASSEMBLER-CViviana Attending Provider Go CYLINDER HEAD ASSEMBLER-C, Viviana Referring Provider Dr. Priyanka Julio MD Primary Care Provider Dr. Priyanka Julio MD Referring Provider [phone] Rajat Avila Attending Provider [phone] Santana Duran DPM Attending Provider [phone] Dr. Santana Duran DPM Referring Provider Priyanka Julio Attending Unavailable Priyanka Julio Referring Unavailable Priyanka Julio Primary Care Unavailable Priyanka Julio Primary Care Unavailable Go CYLINDER HEAD ASSEMBLER, Viviana Attending Unavailable Go CYLINDER HEAD ASSEMBLER, Viviana Referring Unavailable Rajat Avila Attending Unavailable Priyanka Julio Referring Unavailable Priyanka Julio Primary Care Unavailable Rajat Avila Attending Unavailable Priyanka Julio Referring Unavailable Priyanka Julio Primary Care Unavailable Santana Duran Attending Unavailable Santana Duran Referring Unavailable Priyanka Julio Primary Care Unavailable Santana Duran Attending Unavailable Santana Duran Referring Unavailable Priyanka Julio Primary Care Unavailable Priyanka Julio Attending Unavailable Priyanka Julio Primary Care Unavailable Priyanka Julio Attending Unavailable Priyanka Julio Referring Unavailable Sumanth, Priyanka Primary Care Unavailable Sumanth RIBERA, Dr. Jameson Primary Care Physicia n Go CYLINDER HEAD ASSEMBLER-C, Viviana Attending Physician Roger EATON, Dr. Dillon Attending Physician Henry RIBERA, Dr. David Art Attending Physician Sumanth RIBERA, Dr. Jameson Attending Physician Sumanth RIBERA, Dr. Jameson Referring Provider [phone] Medications Current Medications Medication Drug Class(es) Dates Sig (Normalized) Sig (Original) amoxicillin 875 mg oral tablet (14 sources) Penicillin-class Antibacterial Start: 11-06-2024 take 1 tablet by mouth twice daily Start: 08-20-2024 End: 11-06-2024 take 1 tablet by mouth three times daily Amoxicillin 500 mg tablet Discontinued 500 mg PO THREE TIMES A DAY 30 0 August 20, 2024 12:00am November 06, 2024 7:51am Multivitamin tablet (5 sources) Start: 08-20-2024 Start: 08-20-2024 Multivitamin t ablet Active 1 {tbl} PO daily August 20, 2024 12:00am [place] 7-Hzh-Ikx-Fish Oil (Fi sh Oil) 60-90-500 mg capsule (5 sources) Start: 08-20-2024 Start: 08-20-2024 [place] 3-Dha-Ep a-Fish Oil (Fish Oil) 60-90-500 mg capsule Active 1 NMA PO daily August 20, 2024 12:00am Problems Active Problems Problem Classification Problem Date Documented Da te Episodic/Chronic Fracture of lower limb (1 source) Stress fracture, right ankle, initial encounter for fracture; Translations: [Stress fracture, right ankle, initial encounter for fracture] Onset: 12-24-2024 Episodic Other connective tissue disease (1 source) Pain in right lower leg; Translations: [Pain in right lower leg] Onset: 02-12-2025 Episodic Other screening for suspected conditions (not mental disorders or infectious disease) (2 sources) Encounter for screening for osteoporosis; Translations: [Encounter for screening for other suspected endocrine disorder] Onset: 03-04-2025 Episodic Past or Other Problems Problem Classification Problem Date Documented Da te Episodic/Chronic Other connective tissue disease (1 source) Other specified soft tissue disorders; Translations: [Other specified soft tissue disorders] Onset: 12-03-2024 Episodic Unclassified (1 source) lump on left side 800 position Onset: 05-22-2018 Results Test Name Value Interpretation Reference Range Facility Magnesiumon 03-11-2025 Magnesium [Mass/Vol] 2.0 mg/dL Normal 1.5-2.2 [facility] Comment on above: Order Comment: Order Date: 03/11/25 Order Info: [id number] - PHOS Order Info: [id number] - MG Performed By: #### L 501.5200, L501.2300, L509.1000 #### [facility] [address] [place], [address] Magnesium measurement (mass/ volume)Ordered By: Priyanka Julio on 03-11-2025 Magnesium (Unsp spec) [Mass/Vol] 2.0 mg/dL 1.5-2.2 [facility] PTHINon 03-11-2025 PTH 45 pg/mL Normal 11-61 [facility] Comment on above: Order Comment: Order Date: 03/11/25 Order Info: [id number] - PTHIN Performed By: #### L 501.5200, L501.2300, L509.1000 #### [facility] [address] [place], [place], [address] Phosphoruson 03-11-2025 Phosphate [Mass/Vol] 3.3 mg/dL Normal 2.7-4.5 [facility] Comment on above: Order Comment: Order Date: 03/11/25 Order Info: [id number] - PHOS Order Info: [id number] - MG Performed By: #### L 501.5200, L501.2300, L509.1000 #### [facility] [address] [place], [address] Vitamin D,25 Hydroxyon 03-11 Vitamin D 25-OH 40.8 ng/mL Normal 30-100 [facility] Comment on above: Order Comment: Order Date: 03/11/25 Order Info: [id number] - PHOS Order Info: [id number] - MG Result Comment: Maisha min D Status Deficiency: <20 ng/mL (50nmol/L) Insufficiency: 20-30 ng/mL (50-75 nmol/L) Sufficiency: 30-100 ng/mL (75-250 nmol/L) Toxicity: >100 ng/mL (>250 nmol/L) Performed By: #### L 506.1001 #### [facility] [address], [place], [address] Dexa Bone Density Studyon Dexa Bone Density Study [facility] Imaging Services [address], [place] [address] Dexa Bone Density Study MR#: [id number] Acct: [id number] Name: ORTIZ SAMS Rep #: [id number] : 1960 F 65 From: Rina Mendoza PCP: Dr. Priyanka Julio MD Status: REG CLI Study: Dexa Bone Density Study Date of Exam: 03/06/25 Exam# [id number] Ordering Dr: Priyanka Julio PROCEDURE: DEXA BONE DENSITY STUDY 03/06/2025 REASON FOR EXAM: F, age 65 y/o . Patient is postmenopausal. TECHNIQUE: Procedure Code: BDDBD Modality: DX Procedure: DEXA BONE DENSITY STUDY COMPARISON: None FINDINGS: BMD and T-SCORES Lumbar spine: 0.814 g/cm2, T-score -2.4 Levels: L2 through L4 Left femoral neck: 0.448 g/cm2, T-score -3.6 Left total hip: 0.565 g/cm2, T-score -3.1 Right femoral neck: 0.386 g/cm2, T-score -4.2 Right total hip: 0.528 g/cm2, T-score -3.4 The World Health Organization has defined the following categories based on bone density: Normal bone density: T-score equal to or greater than -1.0 Osteopenia: T-score between -1.0 and -2.5 Osteoporosis: T-score equal to or less than -2.5 FRAX (or Comparable) Fracture Risk Assessment: 10 Year Probability of Fracture: Major Osteoporotic Fracture: 37% Hip Fracture: 19% (Note: FRAX is not to be reported in setting of normal range bone density, osteoporosis on DEXA, known history of osteoporosis, prior osteoporotic hip or vertebral fracture, or for any patient undergoing pharmacological treatment for bone loss.) The National Osteoporosis Foundation (NOF) recommends pharmacological treatment for patients with a FRAX 10-year risk of 3% or higher for a hip fracture, or 20% or higher for a major osteoporotic fracture, to prevent osteoporosis and reduce fracture risk. The patient does meet the pharmacological treatment recommendations for prevention of osteoporosis. BD/Dexa Bone Density Study IMPRESSION: OSTEOPOROSIS. Recommend follow-up as clinically warranted. Reading Location: [id number] CC: Dr. Priyanka Julio MD Strainer Tender: Signed Normal [facility] Anion gap in Serum or Plasma Ordered By: Priyanka Julio on 02-19-2025 Anion gap [Moles/Vol] 14 mmol/L 5- [facility] BUN/creatinine ratioOrdered By: Priyanka Julio on 02-19-2025 Urea nitrogen/Creatinine [Mass ratio] 17.0 mg/mg - [facility] Bilirubin, totalOrdered By: Priyanka Julio on 02-19-2025 Bilirubin [Mass/Vol] 0.62 mg/dL 0.00-1.30 [facility] Calculated very low density lipoprotein (VLDL) cholesterol measurementOrdered By: Priyanka Julio on 02-19-2025 Calculated very low density lipoprotein (VLDL) cholesterol measurement 12 mg/dL 5-40 [facility] Carbon dioxide, total [Moles /volume] in Central venous bloodOrdered By: Priyanka Julio on 02-19-2025 CO2 [Moles/Vol] 22.9 mmol/L 21.0-32.0 [facility] Chloride assayOrdered By: Ekta Julio on 02-19-2025 Chloride [Moles/Vol] 103 mmol/L 98-108 [facility] Comprehensive Metabolic Prof ilon 02-19-2025 Albumin [Mass/Vol] 4.5 g/dL Normal 3.4-4.8 [facility] Comment on above: Order Comment: Order Date: 02/19/25Order Info: 86-1 - CMPOrder Info: [id number] - LIPIDOrder Info: [id number] - TSH Performed By: #### L 500.4050, L500.4100, L501.9520 ####[facility] [address] [place], [address] Albumin/Globulin [Mass ratio] 1.6 {ratio} Normal 0.9-2.4 [facility] Comment on above: Order Comment: Order Date: 02/19/25Order Info: [id number]- - CMPOrder Info: [id number] - LIPIDOrder Info: [id number] - TSH Performed By: #### L 500.4050, L500.4100, L501.9520 ####[facility] [address] [place], [address] ALK PHOS 79 U/L Normal 35-104 [facility] Comment on above: Order Comment: Order Date: 02/19/25Order Info: [id number]- - CMPOrder Info: [id number] - LIPIDOrder Info: [id number] - TSH Performed By: #### L 500.4050, L500.4100, L501.9520 ####[facility] [address] [place], [address] ALT [Catalytic activity/Vol] 15 U/L Normal <=34 [facility] Comment on above: Order Comment: Order Date: 02/19/25Order Info: [id number] - CMPOrder Info: [id number] - LIPIDOrder Info: [id number] - TSH Performed By: #### L 500.4050, L500.4100, L501.9520 ####[facility] [address] [place], [address] AST [Catalytic activity/Vol] 24 U/L Normal <=31 [facility] Comment on above: Order Comment: Order Date: 02/19/25Order Info: 86-1 - CMPOrder Info: [id number] - LIPIDOrder Info: [id number] - TSH Performed By: #### L 500.4050, L500.4100, L501.9520 ####[facility] [address] [place], [address] Bilirubin [Mass/Vol] 0.62 mg/dL Normal 0.00-1.30 [facility] Comment on above: Order Comment: Order Date: 02/19/25Order Info: 86-1 - CMPOrder Info: [id number] - LIPIDOrder Info: [id number] - TSH Performed By: #### L 500.4050, L500.4100, L501.9520 ####[facility] [address] [place], [address] BUN/CRE 17.0 RATIO Normal 10-20 [facility] Comment on above: Order Comment: Order Date: 02/19/25Order Info: 86-1 - CMPOrder Info: [id number] - LIPIDOrder Info: [id number] - TSH Performed By: #### L 500.4050, L500.4100, L501.9520 ####[facility] [address] [place], [address] Calcium [Mass/Vol] 10.0 mg/dL Normal 7.6-11.0 [facility] Comment on above: Order Comment: Order Date: 02/19/25Order Info: [id number] - CMPOrder Info: [id number] - LIPIDOrder Info: [id number] - TSH Performed By: #### L 500.4050, L500.4100, L501.9520 ####[facility] [address] [place], [address] Chloride [Moles/Vol] 103 mmol/L Normal 98-108 [facility] Comment on above: Order Comment: Order Date: 02/19/25Order Info: 86-1 - CMPOrder Info: [id number] - LIPIDOrder Info: [id number] - TSH Performed By: #### L 500.4050, L500.4100, L501.9520 ####[facility] [address] [place], [address] CO2 [Moles/Vol] 22.9 mmol/L Normal 21.0-32.0 [facility] Comment on above: Order Comment: Order Date: 02/19/25Order Info: [id number]- - CMPOrder Info: - LIPIDOrder Info: [id number] - TSH Performed By: #### L 500.4050, L500.4100, L501.9520 ####[facility] [address] [place], [address] Creatinine [Mass/Vol] 0.71 mg/dL Normal 0.70-1.[address] [facility] Comment on above: Order Comment: Order Date: 02/19/25Order Info: [id number]- - CMPOrder Info: [id number] - LIPIDOrder Info: [id number] - TSH Performed By: #### L 500.4050, L500.4100, L501.9520 ####[facility] [address] [place], [address] GAP 14 Normal 5-15 [facility] Comment on above: Order Comment: Order Date: 02/19/25Order Info: [id number] - CMPOrder Info: [id number] - LIPIDOrder Info: [id number] - TSH Performed By: #### L 500.4050, L500.4100, L501.9520 ####[facility] [address] [place], [address] GFR/1.73 sq M.predicted among non-blacks MDRD (S/P/Bld) [Vol rate/Area] 95 mL/min/{1.73_m2} Normal >60 [facility] Comment on above: Order Comment: Order Date: 02/19/25Order Info: [id number] - CMPOrder Info: [id number] - LIPIDOrder Info: [id number] - TSH Result Comment: mL/m in/1.73m2 CKD-EPI Creatinine Equation (2020) Performed By: #### L 500.4050, L500.4100, L501.9520 ####[facility] [address] [place], [address] Globulin (S) [Mass/Vol] 2.8 g/dL Normal 2.2-4.2 [facility] Comment on above: Order Comment: Order Date: 02/19/25Order Info: 07-1 - CMPOrder Info: [id number] - LIPIDOrder Info: [id number] - TSH Performed By: #### L 500.4050, L500.4100, L501.9520 ####[facility] [address] [place], [address] Glucose [Mass/Vol] 126 mg/dL High 70-99 [facility] Comment on above: Order Comment: Order Date: 02/19/25Order Info: 07- - CMPOrder Info: [id number] - LIPIDOrder Info: 6-3 - TSH Performed By: #### L 500.4050, L500.4100, L501.9520 ####[facility] [address] [place], [address] Potassium [Moles/Vol] 4.0 mmol/L Normal 3.3-5.[address] [facility] Comment on above: Order Comment: Order Date: 02/19/25Order Info: [id number] - CMPOrder Info: [id number] - LIPIDOrder Info: [id number] - TSH Performed By: #### L 500.4050, L500.4100, L501.9520 ####[facility] [address] [place], [address] Sodium [Moles/Vol] 140 mmol/L Normal 133-145 [facility] Comment on above: Order Comment: Order Date: 02/19/25Order Info: [id number] - CMPOrder Info: [id number] - LIPIDOrder Info: [id number] - TSH Performed By: #### L 500.4050, L500.4100, L501.9520 ####[facility] [address] [place], [address] T PROT 7.3 g/dL Normal 5.9-8.4 [facility] Comment on above: Order Comment: Order Date: 02/19/25Order Info: [id number] - CMPOrder Info: [id number] - LIPIDOrder Info: 3 - TSH Performed By: #### L 500.4050, L500.4100, L501.9520 ####[facility] [address] [place], [address] Urea nitrogen [Mass/Vol] 12 mg/dL Normal 4-19 [facility] Comment on above: Order Comment: Order Date: 02/19/25Order Info: [id number] - CMPOrder Info: [id number] - LIPIDOrder Info: 3 - TSH Performed By: #### L 500.4050, L500.4100, L501.9520 ####[facility] [address] [place], [address] Glomerular filtration rate ( GFR) estimation/1.73 sq m using serum, plasma, or whole bOrdered By: Priyanka Julio on 02-19-2025 GFR/1.73 sq M.predicted among non-blacks MDRD (S/P/Bld) [Vol rate/Area] 95 mL/min/{1.73_m2} >60 [facility] Comment on above: mL/min/1.73m2 CKD-EP I Creatinine Equation (2020) LDL calc ser/plasOrdered By: Priyanka Julio on 02-19-2025 Cholesterol in LDL [Mass/Vol] 65 mg/dL [facility] Comment on above: Tficzvywju=994-348 m g/dL & Higher Clnm=777 mg/dL or greaterFriedwald Equation for LDL-C Laboratory - Chemistry and C hemistry - challengeOrdered By: Priyanka Julio on 02-19-2025 AST [Catalytic activity/Vol] 24 U/L <32 [facility] Lipid Profileon 02-19-2025 CHOL:HDL 1.86 Normal [facility] Comment on above: Order Comment: Order Date: 02/19/25Order Info: [id number] - CMPOrder Info: [id number] - LIPIDOrder Info: [id number] - TSH Performed By: #### L 500.4050, L500.4100, L501.9520 ####[facility] [address] [place], [address] Cholesterol [Mass/Vol] 165 mg/dL Normal <=200 [facility] Comment on above: Order Comment: Order Date: 02/19/25Order Info: [id number] - CMPOrder Info: [id number] - LIPIDOrder Info: [id number] - TSH Result Comment: Chol esterol level, Desirable <200 mg/dL Borderline high cholesterol 200-239 mg/dL High cholesterol >=240 mg/dL Recommendations of the NCEP Adult Treatment Panel for the following risk-cutoff thresholds for the [place] population. Performed By: #### L 500.4050, L500.4100, L501.9520 ####[facility] [address] [place], [address] Cholesterol in HDL [Mass/Vol] 89 mg/dL Normal [facility] Comment on above: Order Comment: Order Date: 02/19/25Order Info: [id number] - CMPOrder Info: [id number] - LIPIDOrder Info: [id number] - TSH Result Comment: Latasha onal Cholesterol Education Program (NCEP) guidelines: <40 mg/dL: Low HDL-cholesterol (major risk factor for CHD) >= 60 mg/dL: High HDL-cholesterol (negative risk factor for CHD) HDL-cholesterol is affected by a number of factors, e.g. smoking, exercise, hormones, sex and age. Performed By: #### L 500.4050, L500.4100, L501.9520 ####[facility] [address] [place], [address] Cholesterol in LDL [Mass/Vol] 65 mg/dL Normal [facility] Comment on above: Order Comment: Order Date: 02/19/25Order Info: [id number] - CMPOrder Info: [id number] - LIPIDOrder Info: 6-3 - TSH Result Comment: Bord hqlfpm=575-815 mg/dL Higher Zqlr=377 mg/dL or greater Friedwald Equation for LDL-C Performed By: #### L 500.4050, L500.4100, L501.9520 ####[facility] [address] [place], [address] Cholesterol in VLDL [Mass/Vol] 12 mg/dL Normal 5-40 [facility] Comment on above: Order Comment: Order Date: 02/19/25Order Info: 86-1 - CMPOrder Info: [id number] - LIPIDOrder Info: [id number] - TSH Performed By: #### L 500.4050, L500.4100, L501.9520 ####[facility] [address] [facility] [place], [address] Triglyceride [Mass/Vol] 58 mg/dL Normal [facility] Comment on above: Order Comment: Order Date: 02/19/25Order Info: [id number] - CMPOrder Info: [id number] - LIPIDOrder Info: 6-3 - TSH Result Comment: The drugs N-Acetylcysteine and Metamizole may falsely depress this assay. Normal range: <150 mg/dL Borderline High: 150-199 mg/dL High: 200-499 mg/dL Very High: >500 mg/dL Performed By: #### L 500.4050, L500.4100, L501.9520 ####[facility] [address] [place], [address] Potassium measurement (mass/ volume)Ordered By: Priyanka Julio on 02-19-2025 Potassium (Unsp spec) [Mass/Vol] 4.0 mmol/L 3.3-5.1 [facility] Screening total cholesterol/ high density lipoprotein (HDL) cholesterol ratioOrdered By: Priyanka Julio on 02-19-2025 Cholesterol.total/Paula sterol in HDL [Mass ratio] 1.86 {ratio} [facility] Serum creatinine measurement (mass/volume)Ordered By: Priyanka Jluio on 02-19-2025 Creatinine [Mass/Vol] 0.71 mg/dL 0.70-1.[address] [facility] Serum globulin measurementOr dered By: Priyanka Julio on 02-19-2025 Globulin (S) [Mass/Vol] 2.8 g/dL 2.2-4.2 [facility] Serum glucose measurement (m ass/volume)Ordered By: Priyanka Julio on 02-19-2025 Glucose [Mass/Vol] 126 mg/dL High 70-99 [facility] Serum or plasma alanine albright otransferase (ALT) measurementOrdered By: Priyanka Julio on 02-19-2025 ALT [Catalytic activity/Vol] 15 U/L <35 [facility] Serum or plasma albumin silke urement (mass/volume)Ordered By: Priyanka Julio on 02-19-2025 Albumin [Mass/Vol] 4.5 g/dL 3.4-4.8 [facility] Serum or plasma albumin/glob ulin mass ratioOrdered By: Priyanka Julio on 02-19-2025 Albumin/Globulin [Mass ratio] 1.6 {ratio} 0.9-2.4 [facility] Serum or plasma alkaline jimmy sphatase measurementOrdered By: Priyanka Julio on 02-19-2025 ALP [Catalytic activity/Vol] 79 U/L 35-104 [facility] Serum or plasma calcium silke urement (mass/volume)Ordered By: Priyanka Julio on 02-19-2025 Calcium [Mass/Vol] 10.0 mg/dL 7.6-11.0 [facility] Serum or plasma cholesterol in HDL measurement (mass/volume)Ordered By: Priyanka Julio on 02-19-2025 Cholesterol in HDL [Mass/Vol] 89 mg/dL >40 [facility] Comment on above: National Cholesterol Education Program (NCEP) guidelines:<40 mg/dL: Low HDL-cholesterol (major risk factor for CHD)>= 60 mg/dL: High HDL-cholesterol (negative risk factor for CHD)HDL-cholesterol is affected by a number of factors, e.g. smoking, exercise, hormones, sex and age. Serum or plasma cholesterol measurement (mass/volume)Ordered By: Priynaka Julio on 02-19-2025 Cholesterol [Mass/Vol] 165 mg/dL <201 [facility] Comment on above: Cholesterol level, D esirable <200 mg/dLBorderline high cholesterol 200-239 mg/dLHigh cholesterol >=240 mg/dLRecommendations of the NCEP Adult Treatment Panel for the following risk-cutoff thresholds for the [place] population. Serum or plasma urea nitroge n measurement (mass/volume)Ordered By: Priyanka Julio on 02-19-2025 Urea nitrogen [Mass/Vol] 12 mg/dL 4-19 [facility] Sodium levelOrdered By: Raul Julio on 02-19-2025 Sodium [Moles/Vol] 140 mmol/L 133-145 [facility] TSH DL <= 0.005 mIU/L QnOrde red By: Priyanka Julio on 02-19-2025 TSH Qn 1.800 uIU/mL 0.300-4.200 [facility] Thyroid Stim Hormone (TSH)on 02-19-2025 TSH 1.800 uIU/mL Normal 0.300-4.200 [facility] Comment on above: Order Comment: Order Date: 02/19/25Order Info: [id number] - CMPOrder Info: [id number] - LIPIDOrder Info: [id number] - TSH Performed By: #### L 500.4050, L500.4100, L501.9520 ####[facility] [address] [place], [address] Total proteinOrdered By: Keely Julio on 02-19-2025 Protein [Mass/Vol] 7.3 g/dL 5.9-8.4 [facility] Triglycerides measurementOrd ered By: Priyanka Julio on 02-19-2025 Triglyceride [Mass/Vol] 58 mg/dL <199 [facility] Comment on above: The drugs N-Acetylcy steine and Metamizole may falsely depress this assay. Normal range: <150 mg/dLBorderline High: 150-199 mg/dLHigh: 200-499 mg/dLVery High: >500 mg/dL Venous Duplex US, Unilateral on 02-04-2025 Venous Duplex US, Unilateral [facility] [address] [place] [address] Venous Duplex US, Unilateral 02/04/25 1253 MR#: [id number] Acct: [id number] Name: ORTIZ SAMS Rep #: [id number] : 1960 64 From: David Figueroa MD Attending Dr: Dr. Santana Duran, DPM Status: REG CLI Ordering Dr: Santana Duran DPM Date: 02/04/25 Location: [facility] Sex: F C Admitted: Reason For Study Reason For Study: RLE PAIN/SWELLING RIGHT LEFT CFV is compressible, spontaneous, phasic, competent CFV is compressible, spontaneous, phasic, competent, and demonstrates normal augmentation. and demonstrates normal augmentation. FV is compressible, spontaneous, phasic, competent and demonstrates normal augmentation. POP V is compressible, spontaneous, phasic, competent and demonstrates normal augmentation. T/P Trunk is compressible. PTV is compressible. RT PerV is compressible. GSV is normal from prox calf to groin. GSV is DILATED AND NONCOMPRESSIBLE from ANKLE to MID CALF C/W ACUTE SVT. Procedure This is a venous duplex using B-mode, color flow and spectral Doppler. Exam performed in department. A preliminary report was called and/or faxed to Brigitte @ [facility] @ 13:10 @ [phone]. VL/Venous Duplex US, Unilateral Interpretation Summary Deep veins of the right lower extremity are patent and compressible segmentally. There is no evidence of right lower extremity deep vein thrombosis. Valvular competence appears intact within the proximal deep venous system on the right . Acute superficial thrombophlebitis is noted in the right great saphenous vein from the ankle to the mid-calf. The right great saphenous vein is patent and compressible from the proximal calf to the groin. The left common femoral vein is patent and compressible . Ordering Physician: Santana Duran Referring Physician: Priyanka Julio Performed By: Araseli Bravo RDCS, RVT 02/04/252231 Date David Figueroa MD CC: DPM Dr. Santana Duran; Dr. Priyanka Julio MD Date Dictated: 02/04/251252 Date Transcribed: 02/04/252231 Strainer Tender: Signed Normal [facility] Venous duplex ultrasound rep ortOrdered By: David Figueroa on 02-04-2025 US Vein [facility] [address] [place] [address] Venous Duplex US, Unilateral 02/04/25 1253 MR#: [id number] Acct: [id number] Name: ORTIZ SAMS Rep #:[id number] : 1960 64 From: David Figueroa MD Attending Dr: Dr. Santana Duran DPM Status: REG CLI Ordering Dr: Santana Duran DPM Date: 02/04/25 Location: [facility] Sex: F C Admitted: Reason For Study Reason For Study: RLE PAIN/SWELLING RIGHT LEFT CFV is compressible, spontaneous, phasic, competent CFV is compressible, spontaneous, phasic, competent, and demonstrates normal augmentation. and demonstrates normal augmentation. FV is compressible, spontaneous, phasic, competent and demonstrates normal augmentation. POP V is compressible, spontaneous, phasic, competent and demonstrates normal augmentation. T/P Trunk is compressible. PTV is compressible. RT PerV is compressible. GSV is normal from prox calf to groin. GSV is DILATED AND NONCOMPRESSIBLE from ANKLE to MID CALF C/W ACUTE SVT. Procedure This is a venous duplex using B-mode, color flow and spectral Doppler. Exam performed in department. A preliminary report was called and/or faxed to Brigitte @ [facility] @ 13:10 @ [phone]. VL/Venous Duplex US, Unilateral Interpretation Summary Deep veins of the right lower extremity are patent and compressible segmentally.There is no evidence of right lower extremity deep vein thrombosis. Valvular competence appears intact within the proximal deep venous system on the right . Acute superficial thrombophlebitis is noted in the right great saphenous vein from the ankle to the mid-calf. The right great saphenous vein is patent and compressible from the proximal calf to the groin. The left common femoral vein is patent and compressible . Ordering Physician: Santana Duran Referring Physician: Priyanka Julio Performed By: Araseli Bravo, KWABENA, RVT 02/04/252231 Date _ David Figueroa MD CC: DPCooper Duran; Dr. Priyanka Julio MD ~ Date Dictated: 02/04/25 1253 Date Transcribed: 02/04/252231 Strainer Tender: Signed [facility] Other Anion gap in Serum or Plasma Ordered By: Santana Duran on 12-17-2024 Anion gap [Moles/Vol] 11 mmol/L 10-[address] [facility] BUN/creatinine ratioOrdered By: Santana Duran on 12-17-2024 Urea nitrogen/Creatinine [Mass ratio] 13.3 mg/mg 03-31 [facility] Basic Metabolic Profile (BMP )on 12-17-2024 BUN/CRE 13.3 RATIO Normal 03-31 [facility] Comment on above: Performed By: #### L 500.2500, L506.1001 #### [facility] Laboratory [address] [place], [address] Calcium [Mass/Vol] 9.6 mg/dL Normal 7.6-11.0 [facility] Comment on above: Performed By: #### L 500.2500, L506.1001 #### [facility] [address] [place], [address] Chloride [Moles/Vol] 103 mmol/L Normal 98-108 [facility] Comment on above: Performed By: #### L 500.2500, L506.1001 #### [facility] [address] [place], [address] CO2 [Moles/Vol] 24.5 mmol/L Normal 21.0-32.0 [facility] Comment on above: Performed By: #### L 500.2500, L506.1001 #### [facility] [address] [place], [address] Creatinine [Mass/Vol] 0.78 mg/dL Normal 0.70-1.[address] [facility] Comment on above: Performed By: #### L 500.2500, L506.1001 #### [facility] [address] [place], [address] GAP 11 Normal - [facility] Comment on above: Performed By: #### L 500.2500, L506.1001 #### [facility] [address] [place], [address] GFR/1.73 sq M.predicted among non-blacks MDRD (S/P/Bld) [Vol rate/Area] 85 mL/min/{1.73_m2} Normal >60 [facility] Comment on above: Result Comment: mL/m in/1.73m2 CKD-EPI Creatinine Equation (2020) Performed By: #### L 500.2500, L506.1001 #### [facility] [address] [place], [address] Glucose [Mass/Vol] 127 mg/dL High 70-99 [facility] Comment on above: Performed By: #### L 500.2500, L506.1001 #### [facility] [address] [place], [address] Potassium [Moles/Vol] 4.0 mmol/L Normal 3.3-5.[address] [facility] Comment on above: Performed By: #### L 500.2500, L506.1001 #### [facility] [address] [place], [address] Sodium [Moles/Vol] 139 mmol/L Normal 133-145 [facility] Comment on above: Performed By: #### L 500.2500, L506.1001 #### [facility] [address] [place], [address] Urea nitrogen [Mass/Vol] 10 mg/dL Normal 4-19 [facility] Comment on above: Performed By: #### L 500.2500, L506.1001 #### [facility] [address] [place], [address] Carbon dioxide, total [Moles /volume] in Central venous bloodOrdered By: Santana Duran on 12-17-2024 CO2 [Moles/Vol] 24.5 mmol/L 21.0-32.0 [facility] Chloride assayOrdered By: Tevin Duran on 12-17-2024 Chloride [Moles/Vol] 103 mmol/L 98-108 [facility] Glomerular filtration rate ( GFR) estimation/1.73 sq m using serum, plasma, or whole bOrdered By: Santana Duran on 12-17-2024 GFR/1.73 sq M.predicted among non-blacks MDRD (S/P/Bld) [Vol rate/Area] 85 mL/min/{1.73_m2} >60 [facility] Comment on above: mL/min/1.73m2 CKD-EP I Creatinine Equation (2020) Potassium measurement (mass/ volume)Ordered By: Santana Duran on 12-17-2024 Potassium (Unsp spec) [Mass/Vol] 4.0 mmol/L 3.3-5.1 [facility] Serum creatinine measurement (mass/volume)Ordered By: Santana Duran on 12-17-2024 Creatinine [Mass/Vol] 0.78 mg/dL 0.70-1.[address] [facility] Serum glucose measurement (m ass/volume)Ordered By: Santana Duran on 12-17-2024 Glucose [Mass/Vol] 127 mg/dL High 70-99 [facility] Serum or plasma calcium silke urement (mass/volume)Ordered By: Santana Duran on 12-17-2024 Calcium [Mass/Vol] 9.6 mg/dL 7.6-11.0 [facility] Serum or plasma urea nitroge n measurement (mass/volume)Ordered By: Santana Duran on 12-17-2024 Urea nitrogen [Mass/Vol] 10 mg/dL 4-19 [facility] Sodium levelOrdered By: Pipe Duran on 12-17-2024 Sodium [Moles/Vol] 139 mmol/L 133-145 [facility] Vitamin D,25 Hydroxyon 12-17 Vitamin D 25-OH 50.7 ng/mL Normal 30-100 [facility] Comment on above: Result Comment: Maisha min D Status Deficiency: <20 ng/mL (50nmol/L) Insufficiency: 20-30 ng/mL (50-75 nmol/L) Sufficiency: 30-100 ng/mL (75-250 nmol/L) Toxicity: >100 ng/mL (>250 nmol/L) Performed By: #### L 500.2500, L506.1001 ####[facility] [address] [place], [address] Ankle min 3 Viewson 11-27-19 25 Ankle min 3 Views [facility] Imaging Services [address] [place] [address] Ankle min 3 Views MR#: [id number] Acct: [id number] Name: ORTIZ SAMS Rep #: [id number] : 1960 F 64 From: Christopher leon MD PCP: Dr. Priyanka Julio MD Status: REG CLI Study: Ankle min 3 Views Date of Exam: 11/26/24 Exam# [id number] Ordering Dr: Viviana Stiles NP, NP PROCEDURE: [...] No evidence for acute abnormality. Reading [facility] CC: Viviana Stiles; Dr. Priyanka Julio MD Strainer Tender: Signed Normal [facility] Urgent Care Visit Reporton 0 11-06-2024 Urgent Care Visit Report [facility] [address], [address] [place] [address] OFFICE VISIT Date of Service: 11/06/24 MR#: [id number] Acct: [id number] Name: ORTIZ SAMS Rep #: [id number] : 1960 Provider: HARMONY Vaz Age/Sex: 64/F [place] [facility] Status: Signed Intake Vital Signs 08/20/24 08:23 [...] Complaint: congest, chest tight, cough, PEREZ, mucus Master Printer Required: No Is patient in pain?: No Allergies No Known Allergies Allergy (Verified 11/06/24 07:51) Medications ???Medication ???Instructions ???Recorded ???Confirmed ???Type multivitamin 1 tab PO QDAY 08/20/24 08/20/24 Hi story omega 1-isb-taq-fish oil 60 mg-90 1 cap PO QDAY [...] numerous otc meds without relief. denies fever. [facility] Social History (Updated 08/20/24 @ 08:16 by [...] Risk Scr (more content not included)... Normal [facility] SAQIB SCREENING W TOMOon 04-28 -2025 SAQIB SCREENING W LYNN * * *Final Report* * * DATE OF EXAM: Oct 07 2024 3:22PM AWW 0582 - SAQIB SCREENING W LYNN / PROCEDURE REASON: screening mamm * * * * Physician Interpretation * * * * [facility] [address] [place] [address] [place] [id number] #[id number] - SAQIB SCREENING W LYNN HISTORY: 64 [...] Frederick Mack M.D. Electronically signed on: 10/08/2024 Strainer Tender: ARABELLA Transcribe Date/Time: Oct 07 2024 2:49P Dictated by : FREDERICK MACK MD This examination was interpreted and the report reviewed and electronically signed by: FREDERICK MACK MD on Oct 08 2024 8:59AM EST [id number] N Normal [facility] Urgent Care Visit Reporton 0 08-20-2024 Urgent Care Visit Report [facility] [address], [address] [place] [address] OFFICE VISIT Date of Service: 08/20/24 MR#: [id number] Acct: [id number] Name: ORTIZ SAMS Rep #: [id number] : 1960 Provider: HARMONY Vaz Age/Sex: 64/F [place] [facility] Status: Signed Intake Vital Signs 08/20/24 08:23 Height 5 ft 6 in Weight: 139 lb BMI 22.4 BP 138/82 H Blood Pressure Location Lt brachial Position Sitting Respiration 16 Pulse 66 Pulse Source Monitor Temp 98.1 F Temp Source Temporal Pulse Oximetry (%) 97 Oxygen Delivery Method room air Intake Visit Reasons: ST/BILAT EAR PAIN/PEREZ Chief Complaint: sinus congestion, b/l ear pain, cough Master Printer Required: No Accompanied by: Self Is patient in pain?: No Allergies No Known Allergies Allergy (Verified 08/20/24 08:15) Medications ???Medication ???Instructions ???Recorded ???Confirmed ???Type amoxicillin 500 mg tablet 500 mg PO TID #30 tabs 08/20/24 Rx amoxicillin 500 mg tablet 500 mg PO TID #30 tabs 08/20/24 Rx multivitamin 1 tab PO QDAY 08/20/24 08/20/24 Hi story omega 1-dnc-uay-fish oil 60 mg-90 1 cap PO QDAY [...] with similar complaints, including spouse. Non-smoker. No czrr-nho-icwjrcb products taken to assist. No other associated symptoms and no other alleviating/aggravati ng factors. ROS Const Constitutional: No other (as above) Exam Const General: cooperative, healthy appearing and no acute distress Nutritional Appearance: average body habitus Orientation: alert, awake and oriented x3 HENPA Head: normal to inspection Ears: hearing grossly [...] 30 tabs 0RF 08/20/24 0828 Date Rajat Badillo Signature: Date (if applicable) CC: Normal [facility] Basophil percentageon 2021 Chloride [Moles/Vol] 104 mmol/L 98-107 [facility] Work Phone: Cholesterol [Mass/Vol] 189 mg/dL <200 [facility] Work Phone: Comment on above: <200 mg/dL Desirable 200-240 mg/dL Borderline >240 mg/dL High Risk Glucose [Mass/Vol] 101 mg/dL 74-106 [facility] Work Phone: Comment on above: Fasting Glucose resu lt from 100 to 125 mg/dL suggests IMPAIRED HOMEOSTASIS per A.D.A. criteria. Potassium [Moles/Vol] 3.8 mmol/L 3.5-5.[address] [facility] Work Phone: Sodium [Moles/Vol] 140 mmol/L 136-145 [facility] Work Phone: Triglyceride [Mass/Vol] 41 mg/dL <199 [facility] Work Phone: Comment on above: The drugs N-Acetylcy steine and Metamizole may falsely depress this assay.Serum Triglycerides Reference Interval Normal <150 mg/dL Borderline high 150 - 199 mg/dL High 200 - 499 mg/dL Very High > or = 500 mg/dL WBC (Bld) [#/Vol] 7.7 10*3/uL 4.4-11.0 [facility] Work Phone: Blood erythrocytes count (nu mber/volume)on 05-25-2022 RBC (Bld) [#/Vol] 4.35 10*6/uL 4.2-5.[address] [facility] Work Phone: Blood hemoglobin measurement (mass/volume)on 05-25-2022 Hemoglobin (Bld) [Mass/Vol] 14.0 g/dL 12.0-15.0 [facility] Work Phone: Blood platelet mean volumeon 05-25-2022 Platelet mean volume (Bld) [Entitic vol] 11.6 fL 6.2-12.0 [facility] Work Phone: Determination of erythrocyte mean corpuscular volume (MCV)on 05-25-2022 MCV (RBC) [Entitic vol] 95.4 fL 81-99 [facility] Work Phone: Hematocrit Auto (Bld) [Volum e fraction]on 05-25-2022 Hematocrit (Bld) [Volume fraction] 41.5 % 37-47 [facility] Work Phone: Iron measurement (mass/mass) on 05-25-2022 Iron (Unsp spec) [Mass/Mass] 78 ug/dL 50-170 [facility] Work Phone: Laboratory - Chemistry and C hemistry - challengeon 05-25-2022 CO2 [Moles/Vol] 26.0 mmol/L 21.0-32.0 [facility] Work Phone: Cobalamin (Vitamin B12) [Mass/Vol] 471 pg/mL 211-911 [facility] Work Phone: Urea nitrogen/Creatinine [Mass ratio] 16.4 mg/mg 10-20 [facility] Work Phone: Laboratory - Hematology and Cell countson 05-25-2022 Erythrocyte distribution width (RBC) [Entitic vol] 45.6 fL 35.1-43.9 [facility] Work Phone: Erythrocyte distribution width (RBC) [Ratio] 12.9 % 11.6-14.6 [facility] Work Phone: MCH (RBC) [Entitic mass] 32.2 pg 27.0-32.0 [facility] Work Phone: MCHC Auto (RBC) [Mass/Vol]on 05-25-2022 MCHC (RBC) [Mass/Vol] 33.7 g/dL 32-[address] [facility] Work Phone: No Panel Informationon 05-25 Estimated GFR (MDRD) Amer 104 mL/min >60 [facility] Work Phone: Comment on above: GFR Calc Estimated GFR (MDRD) Non-Af Amer 86 mL/min >60 [facility] Work Phone: Comment on above: Non- GFR Calc Thyroid Stimulating Hormone (TSH) 1.61 uIU/mL 0.358-3.74 [facility] Work Phone: Vitamin D 25-Hydroxy 47.3 ng/mL [facility] Work Phone: Comment on above: Vitamin D 25(OH) Sta tus Range Deficiency <20 ng/mL (50nmol/L) Insufficiency 20 - 30 ng/mL (50 - 75 nmol/L) Sufficiency 30 - 100 ng/mL (75 - 250 nmol/L) Toxicity >100 ng/mL (>250 nmol/L) Platelets bldon 05-25-2022 Platelets (Bld) [#/Vol] 267 10*3/uL 150-450 [facility] Work Phone: Serum or plasma calcium silke urement (mass/volume)on 05-25-2022 Calcium [Mass/Vol] 9.5 mg/dL 8.5-10.1 [facility] Work Phone: Serum or plasma cholesterol in HDL measurement (mass/volume)on 05-25-2022 Cholesterol in HDL [Mass/Vol] 105 mg/dL >40 [facility] Work Phone: Comment on above: The drugs N-Acetylcy steine and Metamizole may falsely depress this assay. Reference Range HDL <40 mg/dL Low HDL Cholesterol HDL >or= 60 mg/dL High HDL Cholesterol Serum or plasma cholesterol in VLDL measurement (mass/volume)on 05-25-2022 Cholesterol in VLDL [Mass/Vol] 8 mg/dL 5-40 [facility] Work Phone: Serum or plasma creatinine m easurement (mass/volume)on 05-25-2022 Creatinine [Mass/Vol] 0.73 mg/dL 0.55-1.[address] [facility] Work Phone: Comment on above: The validity of the calculated GFR & GFRAA in patients over 70 years has not been determined. Clinical correlation is essential. Serum or plasma ferritin andrei surement (mass/volume)on 05-25-2022 Ferritin [Mass/Vol] 159 ng/mL 8-[address] [facility] Work Phone: Serum or plasma low density lipoprotein (LDL) cholesterol measurement (mass/volume)on 05-25-2022 Cholesterol in LDL [Mass/Vol] 76 mg/dL 0-130 [facility] Work Phone: Serum or plasma urea nitroge n measurement (mass/volume)on 05-25-2022 Urea nitrogen [Mass/Vol] 12 mg/dL 7-18 [facility] Work Phone: Thin prep Papanicolaou smear with manual screeningon 05-25-2022 Thin prep Papanicolaou smear with manual screening 10 5-15 [facility] Work Phone: Vital Signs Date Time Vital Sign Value Performing Clinician Julio Ci terri 11-06-2024 07:50-0400 Body temperature 98.7 [degF] Dr. Priyanka Julio MD Work Phone: [facility] 11-06-2024 07:50-0400 Diastolic blood pressure 68 mm[Hg] Dr. Priyanka Julio MD Work Phone: [facility] 11-06-2024 07:50-0400 Heart rate 67 /min Dr. Priyanka Julio MD Work Phone: [facility] 11-06-2024 07:50-0400 Respiratory rate 16 /min Dr. Priyanka Julio MD Work Phone: [facility] 11-06-2024 07:50-0400 SaO2% (BldA) [Mass fraction] 100 % Dr. Priyanka Julio MD Work Phone: 5([phone])335-310449 [place] [address] 11-06-2024 07:50-0400 Systolic blood pressure 132 mm[Hg] Dr. Priyanka Julio MD Work Phone: 8(125)673-548314 [place] [address] 08-20-2024 08:23-0400 Body height 167.[address] Priyanka Julio MD Work Phone: 1(123)744-196714 [place] [address] 08-20-2024 08:23-0400 Body mass index (BMI) [Ratio] 22.4 kg/m2 Dr. Priyanka Julio MD Work Phone: 7(595)667-551214 [place] [address] 08-20-2024 08:23-0400 Body temperature 98.1 [degF] Dr. Priyanka Julio MD Work Phone: 6(083)224-284514 [place] [address] 08-20-2024 08:23-0400 Body weight 63.[address] Priyanka Julio MD Work Phone: 9(870)648-964614 [place] [address] 08-20-2024 08:23-0400 Diastolic blood pressure 82 mm[Hg] Dr. Priyanka Julio MD Work Phone: 7(839)669-393514 [place] [address] 08-20-2024 08:23-0400 Heart rate 66 /min Dr. Priyanka Julio MD Work Phone: 7(657)715-477514 [place] [address] 08-20-2024 08:23-0400 Respiratory rate 16 /min Dr. Priyanka Julio MD Work Phone: 3(536)885-816414 [place] [address] 08-20-2024 08:23-0400 SaO2% (BldA) [Mass fraction] 97 % Dr. Priyanka Julio MD Work Phone: 0(326)[phone] [place] [address] 08-20-2024 08:23-0400 Systolic blood pressure 138 mm[Hg] Dr. Priyanka Julio MD Work Phone: [facility] Encounters Encounter Date Encounter Type Care Provider Facility Start: 03-11-2025 [facility] Start: 03-06-[address] Priyanka Julio MD -[facility] Work Phone: Start: 03-06-2025 [facility] Start: 02-19-2025 End: 02-19-[address] Priyanka Julio MD Work Phone: -[facility] Start: 02-19-2025 End: 02-19-[address] Priyanka Julio MD -[facility] Start: 02-19-2025 End: 02-19-2025 ambulatory Priyanka Julio Facility:[facility] Start: 02-04-2025 End: 02-04-[address] Priyanka Julio MD Work Phone: -[facility] Start: 02-04-2025 End: 02-04-[address] Santana Duran DPM -Cardiovascular Services Work Phone: Start: 02-04-2025 End: 02-04-2025 ambulatory [facility] Facility:[facility] Start: 12-17-2024 End: 12-17-[address] Priyanka Julio MD Work Phone: -[facility] Start: 12-17-2024 End: 12-17-[address] [facility] Start: 12-17-2024 End: 12-17-2024 ambulatory [facility] Facility:[facility] Start: 11-26-2024 End: 11-26-[address] Priyanka Julio MD Work Phone: [facility] Work Phone: Start: 11-26-2024 End: 11-26-2024 Patient encounter procedure Viviana Stiles [employer] Work Phone: Start: 11-26-2024 End: 11-26-2024 ambulatory Priyanka Julio Facility:[facility] Start: 11-06-2024 End: 11-06-2024 Patient encounter procedure Rajat Person [facility] Work Phone: Start: 11-06-2024 End: 11-06-[address] Priyanka Julio MD Work Phone: [facility] Work Phone: Start: 10-07-2024 ambulatory RPIYANKA JULIO cility:[facility] Start: 10-07-2024 End: 10-07-2024 Subsequent hospital visit by physician Screen Mammo Bath [facility] Comment on above: saqib screen Start: 08-20-2024 End: 08-20-2024 Patient encounter procedure Rajat Person PA -[facility] Work Phone: Start: 08-20-2024 End: 08-20-2024 ambulatory Rajat ANTUNEZ [facility] Start: 10-05-2023 Documentation procedure Mammog rachel Coordinator [place] [facility] NOT LIST[facility] Start: 10-05-2023 Letter encounter Mammography Coordinator [place] [facility] NOT [facility]IST[facility] Start: 10-04-2023 End: 10-04-2023 Subsequent hospital visit by physician Screen Mammo Bath [facility] Comment on above: screening Start: 08-30-2022 Documentation procedure Mammog rachel Coordinator [facility] Start: 08-30-2022 Letter encounter Mammography Coordinator [place] [facility] NOT LISTED Start: 08-29-2022 End: 08-29-2022 Subsequent hospital visit by physician Screen Mammo Bath [facility] Comment on above: saqib screen Start: 06-02-2022 End: 06-02-2022 ambulatory [facility] Work Phone: Start: 06-02-2022 End: 06-02-2022 Patient encounter procedure [facility], Specimen Start: 05-25-2022 End: 05-25-2022 ambulatory [facility] Work Phone: Start: 05-25-2022 End: 05-25-2022 Patient encounter procedure [facility], Therese Zelaya Start: 08-26-2021 Documentation procedure Mammog rachel Coordinator [facility] Start: 08-26-2021 Letter encounter Mammography Coordinator [facility] NOT LISTED Start: 08-25-2021 End: 08-25-2021 Subsequent hospital visit by physician Screen Mammo Bath [facility] Comment on above: Screening Start: 09-04-2018 End: 09-04-2018 Patient encounter procedure RAJAT YAÑEZ Facility:[facility] Start: 05-22-2018 Patient encounter procedure RAJAT YAÑEZ Facility:[facility] Procedures Date Procedure Procedure Detail Performing Clinician Start: 03-11-[address] Priyanka Julio MD Work Phone: Start: 03-11-2025 Serum inorganic phos phate measurement Dr. Priyanka Julio MD Work Phone: Start: 03-11-2025 Vitamin D, 25-hydrox y measurement Dr. Priyanka Julio MD Work Phone: Comment on above: Vitamin D StatusDefi ciency: <20 ng/mL (50nmol/L)Insufficiency: 20-30 ng/mL (50-75 nmol/L)Sufficiency: 30-100 ng/mL (75-250 nmol/L)Toxicity: >100 ng/mL (>250 nmol/L) Start: 03-06-2025 Dual energy X-ray absorptiometry Dr. Priyanka Julio MD Work Phone: Start: 12-17-2024 Vitamin D, 25-hydrox y measurement [...] RSV Vaccine (1 - 1-dose 75+ series) [facility] Start: 05-15-2029 Urine microalbumin profile DTaP,Tdap,Td Vaccine (2 - Td or Tdap) [facility] Start: 03-11-2025 Patient encounter procedure Registered Clinical -Laboratory Therese Zelaya Start: 10-03-2024 Screening for malignant neoplasm of breast Mammogram Screening [facility] Start: 02-11-2024 Covid-19 Vaccine ( season) Covid-19 Vaccine () [facility] Start: 08-30-2023 Mammography MAMMOGRAM [facility] Start: 08-30-2023 Screening for malignant neoplasm of breast Mammogram Screening [facility] Start: 06-12-2023 Behavioral Health Screening Behavioral Health Screening [facility] Start: 02-10-2023 Covid-19 Vaccine ( season) Covid-19 Vaccine ( season) [facility] Start: 08-25-2022 Mammography MAMMOGRAM [facility] Start: 06-12-2022 DEPRESSION ASSESSMENT DEPRESSION ASSESSMENT [facility] Start: 02-10-2022 Influenza vaccination INFLUENZA (#1) [facility] Start: 2021 RSV Vaccine (1 - 1-dose 60+ series) RSV Vaccine (1 - 1-dose 60+ series) [facility] Start: 02-10-2021 Influenza vaccination INFLUENZA (#1) [facility] Start: 09-05-2019 Mammography MAMMOGRAM [facility] Start: 07-10-2019 Shingrix Vaccine (2 of 2) Shingrix Vaccine (2 of 2) [facility] Start: 2011 Pneumococcal Vaccine: 50+ (1 of 1 - PCV) Pneumococcal Vaccine: 50+ (1 of 1 - PCV) [facility] Start: 2011 SHINGRIX VACCINE (1 of 2) SHINGRIX VACCINE (1 of 2) [facility] Start: 2006 COLOGUARD (FIT-DNA) COLOGUARD (FIT-DNA) [facility] Start: 2006 Colonoscopy COLONOSCOPY [facility] Start: 2006 COLORECTAL CANCER SCREENING COLORECTAL CANCER SCREENING [facility] Start: [address] COLONOGRAPHY [facility] Start: 2006 DIABETES SCREEN DIABETES SCREEN [facility] Start: 2006 Diabetes Screening Diabetes Screening [facility] Start: 2006 FECAL OCCULT BLOOD FECAL OCCULT BLOOD [facility] Start: 2006 Lipid panel Lipid Screening [facility] Start: 2006 LIPID SCREEN LIPID SCREEN [facility] Start: 2006 Screening for malignant neoplasm of colon [facility] Start: 2006 SIGMOIDOSCOPY SIGMOIDOSCOPY [facility] Start: 1991 HPV TESTING HPV TESTING [facility] Start: 1991 Screening for malignant neoplasm of cervix HPV Testing [facility] Start: 1982 PAP TESTING PAP TESTING [facility] Start: 1982 Screening for malignant neoplasm of cervix [facility] Start: 02-14-1980 Urine microalbumin profile DTAP,TDAP,TD (1 - Tdap) [facility] Start: 1979 Anxiety Screening Anxiety Screening [facility] Start: 1979 Depression Screening Depression Screening [facility] Start: 1979 HEPATITIS C SCREENING HEPATITIS C SCREENING [facility] Start: 1979 Hepatitis C screening Hepatitis C Screening [facility] Start: 1979 HIV SCREENING HIV SCREENING [facility] Start: 1979 HIV screening HIV Screening [facility] Start: 1973 Adult depression screening assessment DEPRESSION SCREENING [facility] Start: 1966 COVID-19 VACCINE (1) [facility] Start: 1960 COVID-19 VACCINE (#1) COVID-19 VACCINE (#1) [facility] Path report.final Dx Spec [facility] Work Phone: Payers Date Payer Category Payer Self-pay [id number] 2017 [employer] BLUE ACCE SS PPO [id number] 2017 Unknown ZA REED ACCE SS PPO [id number] 2017-Present [phone] [address] [place] [address] PPO [id number] 2017 Unknown ZA REED ACCE SS PPO [id number] 2017-Present [phone] [address] [place] [address] PPO [id number] 2017 Unknown [id number] 1960 Unknown [id number] 1960 Unknown [id number] Private Health Insurance [id number] Self-pay [id number] Unknown [id number] Unknown [id number] Unknown [id number] Unknown [id number] Unknown [id number] Unknown [id number] Unknown [id number] [id number] Unknown [id number] Unknown [id number] Social History Date Type Detail Facility Tobacco smoking stat [facility] Tobacco smoking consumption unknown [facility] Start: 1960 Sex Assigned At Not on file [facility] Start: 08-15-2021 End: 08-25-2021 Exposure to SARS-CoV-2 (event) Not sure [facility] Start: 1960 Sex Assigned At Female [facility] Start: 08-29-2022 End: 10-07-2024 History of Social function [facility] Start: 08-29-2022 End: 10-07-2024 Area Deprivation Index [facility] National Score (1-10 0), lower number is lower risk 57 [facility] Start: 08-20-2024 Tobacco smoking stat [facility] Never smoked tobacco (finding) [facility] Clinical Notes 08-26-2021 to 11-27-2024 Candis Yanez RT(R) - 10/07/2024 3:20 PM EDTLejerryer - Coordinator, Mammography - 10/05/2023 10:09 AM EDPhil - Coordinator, Mammography - 10/05/2023 10:09 AM EDT Note Date & Type Note Facility 11-27-2024 Radiology Diagnostic study note [facility] Imaging Services [address] [place], [place] [id number] Ankle min 3 Views MR#: [id number] Acct: [id number] Name: ORTIZ SAMS Rep #: [id number] : 1960 F 64 From: Ludy Felix MD PCP: Dr. Priyanka Julio MD Status: REG CLI Study:Ankle min 3 Views Date of Exam: Exam# [id number] Ordering Dr: Viviana Stiles NP PROCEDURE: ANKLE [...] No evidence for acute abnormality. [facility] Viviana SHARPE NP-[place] Stiles; Dr. Priyanka Julio MD ~ Strainer Tender: Signed [facility] 10-07-2024 History of Presen t illness Narrative [...] PATIENT PRESENTS WITH AN IMPLANTABLE OR ATTACHED PUBLIC RELATIONS DIRECTOR: No RADIOLOGY DEPARTMENT: Mammography PERIPHERAL IV DATA: Not applicable SIGNED BY: RT Monica(R) October 07, 2024 2:51 PM documented in this encounter [facility] 10-07-2024 Note HNO ID: [id number] Author: CANDIS YANEZ RT(Francis) Service: ? Author Type: Technologist Type: Progress [...] PATIENT PRESENTS WITH AN IMPLANTABLE OR ATTACHED PUBLIC RELATIONS DIRECTOR: No RADIOLOGY DEPARTMENT: Mammography PERIPHERAL IV DATA: Not applicable SIGNED BY: RT Monica(R) October 07, 2024 2:51 PM [facility] 10-05-2023 Note Formatting of this n ote might be different from the original. [address] [address] October 05, 2023 PID: [id number] Ortiz Sams [address] [place] [address] Dear Ms. Sams, We are pleased to [...] report will be kept on file at [facility] as part of your permanent medical record and are available for your continuing care. Thank you for allowing us to help in meeting your health care needs. Sincerely, Dr. Villalta Interpreting Radiologist [facility] (Normal over 40) [facility] 10-05-2023 Miscellaneous Notes [facility] [address] [place] [address] October 05, 2023 PID: [id number] Ortiz Sams [address] [place] [address] Dear Ms. Sams, We are pleased to [...] report will be kept on file at [facility] as part of your permanent medical record and are available for your continuing care. Thank you for allowing us to help in meeting your health care needs. Sincerely, Dr. Villalta Interpreting Radiologist [facility] (Normal over 40) documented in this encounter [facility] 10-04-2023 History of Presen t illness [...] PATIENT PRESENTS WITH AN IMPLANTABLE OR ATTACHED PUBLIC RELATIONS DIRECTOR: No RADIOLOGY DEPARTMENT: Mammography PERIPHERAL IV DATA: Not applicable SIGNED BY: RT Monica(R) October 04, 2023 3:10 PM documented in this encounter [facility] 08-30-2022 Miscellaneous Notes [facility] [address] [place] [address] August 30, 2022 PID: [id number] Ortiz Sams [address] [place] [address] Dear Ms. Sams, We are pleased to [...] report will be kept on file at [facility] as part of your permanent medical record and are available for your continuing care. Thank you for allowing us to help in meeting your health care needs. Sincerely, Dr. Villalta Interpreting Radiologist [facility] (Normal over 40) documented in this encounter [facility] 08-29-2022 History of Presen t illness [...] 2022 3:27 PM documented in this encounter [facility] 08-26-2021 Miscellaneous Notes [facility] [address] [place] [address] August 26, 2021 PID: [id number] Ortiz Latrell [address] [place] [address] Dear Ms. Sams, We are pleased to [...] report will be kept on file at [facility] as part of your permanent medical record and are available for your continuing care. Thank you for allowing us to help in meeting your health care needs. Sincerely, Dr. Nevarez Interpreting Radiologist [facility] (Normal over 40) documented in this encounter [facility] Evaluation note No assessment inform ation available [facility] Work Phone: Reason for referral (narrative) No reason for referral information available [facility] Work Phone: Summary Purpose Family History [...] LABS/ STRESS FRACTURE-RIGHT ANKLE December 172024 9:03am Chief Complaint Admit Date WESTLEY/PEREZ/ST November 06, 2024 7:46a m RIGHT ANKLE November 26, 2024 10:5 9am LABS/ STRESS FRACTURE-RIGHT ANKLE December 172024 9:03am Pain in right lower leg February 04 12:32pm Chief Complaint Admit Date RIGHT ANKLE November 26, 2024 10:5 9am LABS/ STRESS FRACTURE-RIGHT ANKLE December 172024 9:03am Pain in right lower leg February 04 12:32pm RLE PAIN/SWELLING February 04, 2025 12 :53pm SCREENING March 06, 2025 1:11pm Additional Source Comments INFORMATION SOURCE (unrecogn ized section and content) DATE CREATED AUTHOR 09/06/2018 [facility] DATE CREATED AUTHOR AUTHOR'S ORGANIZ ATION 10/08/2024 [facility] DATE CREATED AUTHOR AUTHOR'S ORGANIZ ATION 03/13/2025 [facility] Source Comments (unrecognize d section and content) In the event this informatio n is protected by the Federal Confidentiality of Alcohol and Drug Abuse Patient Records regulations: The Federal rules restrict any use of the information to criminally investigate or prosecute any alcohol or drug abuse patient.[facility] the event this information is protected by the Federal Confidentiality of Alcohol and Drug Abuse Patient Records regulations: The Federal rules restrict any use of the information to criminally investigate or prosecute any alcohol or drug abuse patient.[facility] the event this information is protected by the Federal Confidentiality of Alcohol and Drug Abuse Patient Records regulations: The Federal rules restrict any use of the information to criminally investigate or prosecute any alcohol or drug abuse patient.[facility] the event this information is protected by the Federal Confidentiality of Alcohol and Drug Abuse Patient Records regulations: The Federal rules restrict any use of the information to criminally investigate or prosecute any alcohol or drug abuse patient.[facility] the event this information is protected by the Federal Confidentiality of Alcohol and Drug Abuse Patient Records regulations: The Federal rules restrict any use of the information to criminally investigate or prosecute any alcohol or drug abuse patient.[facility] the event this information is protected by the Federal Confidentiality of Alcohol and Drug Abuse Patient Records regulations: The Federal rules restrict any use of the information to criminally investigate or prosecute any alcohol or drug abuse patient.[facility] the event this information is protected by the Federal Confidentiality of Alcohol and Drug Abuse Patient Records regulations: The Federal rules restrict any use of the information to criminally investigate or prosecute any alcohol or drug abuse patient.[facility] Reason for Visit (unrecogniz ed section and content) Reason Comments Radiology Mammogram Care Teams (unrecognized sec tion and content) Register Of Wills Relationship Specialty Start Date End Date Priyanka Julio MD [address], [place] [id number] PCP - General Family Practice 07/24/17 Register Of Wills Relationship Specialty Start Date End Date Priyanka Julio MD [address], [place] [address] PCP - General Family Practice 07/24/17 Register Of Wills Relationship Specialty Start Date End Date Priyanka Julio MD [address] [facility] [place] [address] PCP - General Family Medicine 07/24/17 Register Of Wills Relationship Specialty Start Date End Date Priyanka Julio MD [address] [facility] [place], [place] [id number] PCP - General Family Medicine 07/24/17 Register Of Wills Relationship Specialty Start Date End Date Priyanka Julio MD [address] [place], [place] [address] [address] PCP - General Family Medicine 07/24/17 Register Of Wills Relationship Specialty Start Date End Date Priyanka Juilo MD [address] [place] [address] PCP - General Family Medicine 07/24/17 Register Of Wills Relationship Specialty Start Date End Date Priyanka Julio MD [address] [place], [place] [address] PCP - General Family Medicine 07/24/17 Team [...] End: November 26, 2024 Viviana Stiles NP, [employer]-C Attending Provider Active Start: November 26, 2024 End: November 26, 2024 Viviana Stiles NP, [employer]-C Referring Provider Active Start: November 26, 2024 [...] 06, 2024 End: November 06, 2024 Rajat Person PA, PA Attending Provider Active Start: November 06, 2024 End: November 06, 2024 Team Status: Inactive Member Role/Relationship Status Dates Dr. Priyanka Julio MD Primary Care Provider Acti ve Start: November 26, 2024 End: November 26, 2024 Viviana Stiles [employer] HEAD [employer]SEMBLER, [employer]SEM[employer]ER-C Attending Provider Active Start: November 26, 2024 End: November 26, 2024 Viviana Stiles [employer] ASSEMBLER, [employer] ASSEMBLER-C Referring Provider Active Start: November 26, 2024 [...] December 17, 2024 End: December 17, 2024 Team Status: Inactive Member Role/Relationship Status Dates Dr. Priyanka Julio MD Primary Care Provider Acti ve Start: February 04, 2025 End: February 04, 2025 Dr. Santana Duran DPM Attending Provider Active Start: February 04, 2025 End: February 04, 2025 Dr. Santana Duran DPM Referring Provider Active Start: February 04, 2025 End: February 04, 2025 Team Status: Active Member Role/Relationship Status Dates Dr. Priyanka Julio MD Primary care physician Act lisa Team Status: Inactive Member Role/Relationship Status Dates Dr. Priyanka Julio MD Primary care physician Act lisa Start: November 26, 2024 End: November 26, 2024 Viviana Stiles [employer] HEAD ASSEMBLER, [employer]SEMBLER-C Attending physician Active Start: November 26, 2024 End: November 26, 2024 Viviana Stiles [employer]ER HEAD ASSEMBLER, [employer] ASSEMBLER-C Referring Provider Active Start: November 26, 2024 End: November 26, 2024 Team Status: Inactive Member Role/Relationship Status Dates Dr. Priyanka Julio MD Primary care physician Act lisa Start: December 17, 2024 End: December 17, 2024 Dr. Santana Duran DPM Attending physician Active Start: December 17, 2024 End: December 17, 2024 Dr. Santana Duran DPM Referring Provider Active Start: December 17, 2024 End: December 17, 2024 Team Status: Inactive Member Role/Relationship Status Dates Dr. Priyanka Julio MD Primary care physician Act lisa Start: February 04, 2025 End: February 04, 2025 Dr. Santana Duran DPM Attending physician Active Start: February 04, 2025 End: February 04, 2025 Dr. Santana Duran DPM Referring Provider Active Start: February 04, 2025 End: February 04, 2025 Team Status: Active Member Role/Relationship Status Dates Dr. David Figueroa MD Attending physician Active Start: February 04, 2025 Dr. Santana Duran DPM Referring Provider Active Start: February 04, 2025 Team Status: Inactive Member Role/Relationship Status Dates Dr. Priyanka Julio MD Primary care physician Act lisa Start: February 19, 2025 End: February 19, 2025 Dr. Priyanka Julio MD Attending physician Active Start: February 19, 2025 End: February 19, 2025 Team Status: Active Member Role/Relationship Status Dates Dr. Priyanka Julio MD Primary care physician Act lisa Start: March 06, 2025 Dr. Priyanka Julio MD Attending physician Active Start: March 06, 2025 Dr. Priyanka Julio MD Referring Provider Active Start: March 06, 2025 Team Status: Active Member Role/Relationship Status Dates Dr. Priyanka Julio MD Primary care physician Act lisa Start: March 11, 2025 Dr. Priyanka Julio MD Attending physician Active Start: March 11, 2025 Dr. Priyanka Julio MD Referring Provider Active Start: March 11, 2025 Goals (unrecognized section and content) Goals may [...] BE BASED ON THE PRIMARY CLINICAL RECORDS. [facility] [employer] [facility]. provides no warranty or guarantee of the accuracy or completeness of information in this document.
--- OUTSIDE RECORDS SUMMARY | 2025-04-01 21:34 | XMS RPT_ITS | CCD ---
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 Priyanka Lobato MD Primary Care Provider Dr. Priyanka Julio MD Referring Provider Rajat Avila Attending Provider [employer] AGENT-CViviana Attending Provider [employer] AG[employer]-C, Viviana Referring Provider Dr. Priyanka Julio MD Primary Care Provider Dr. Priyanka Julio MD Referring Provider [phone] Rajat Avila Attending Provider [phone] Santana Duran DPM Attending Provider [phone] Dr. Santana Duran DPM Referring Provider Priyanka Julio Attending Unavailable Priyanka Julio Referring Unavailable Priyanka Julio Primary Care Unavailable Priyanka Julio Primary Care Unavailable [employer] AGENT, Viviana Attending Unavailable [employer] AGENT, Viviana Referring Unavailable Rajat Avila Attending Unavailable [...] Dr. Jameson Primary Care Physicia n [employer] AGENT-C, Viviana Attending Physician Roger EATON, Dr. Dillon Attending Physician Henry RIBERA, Dr. David Art Attending Physician Sumanth RIBERA, Dr. Jameson Attending Physician Sumanth RIBERA, Dr. Jameson Referring Provider [phone] Medications Current Medications Medication Drug Class(es) Dates [...] {tbl} PO daily August 20, 2024 12:00am Pierson 5-Cjj-Dzw-Fish Oil (Fi sh Oil) 60-90-500 mg capsule (5 sources) Start: 08-20-2024 Start: 08-20-2024 Pierson 3-Dha-Ep a-Fish Oil (Fish Oil) 60-90-500 mg [...] 03-11-2025 Magnesium [Mass/Vol] 2.0 mg/dL Normal 1.5-2.2 [facility] Comment on above: Order Comment: Order Date: 03/11/25 Order Info: [id number] - PHOS Order Info: [id number] - MG Performed By: #### L 501.5200, L501.2300, L509.1000 #### [facility] [address] [place], [address] Magnesium measurement (mass/ volume)Ordered By: Priyanka Julio on 03-11-2025 Magnesium (Unsp spec) [Mass/Vol] 2.0 mg/dL 1.5-2.2 [facility] PTHINon 03-11-2025 PTH 45 pg/mL Normal 11-61 [facility] Comment on above: Order Comment: Order Date: 03/11/25 Order Info: [id number] - PTHIN Performed By: #### L 501.5200, L501.2300, L509.1000 #### [facility] [address] [place], [place], [address] Phosphoruson 03-11-2025 Phosphate [Mass/Vol] 3.3 mg/dL Normal 2.7-4.5 [facility] Comment on above: Order Comment: Order Date: 03/11/25 Order Info: [id number] - PHOS Order Info: [id number] - MG Performed By: #### L 501.5200, L501.2300, L509.1000 #### [facility] [address] [place], [address] Vitamin D,25 Hydroxyon 03-11 Vitamin D 25-OH 40.8 ng/mL Normal 30-100 [facility] Comment on above: Order Comment: Order Date: 03/11/25 Order Info: [id number] - PHOS Order Info: [id number] - MG Result Comment: Maisha min D Status Deficiency: <20 ng/mL (50nmol/L) Insufficiency: 20-30 ng/mL (50-75 nmol/L) Sufficiency: 30-100 ng/mL (75-250 nmol/L) Toxicity: >100 ng/mL (>250 nmol/L) Performed By: #### L 506.1001 #### [facility] [address], [place], [address] Dexa Bone Density Studyon Dexa Bone Density Study [facility] Services [address], [place] [address] Dexa Bone Density Study MR#: [id number] Acct: [id number] Name: ORTIZ SAMS Rep #: [id number] : 1960 F 65 From: Rina Mendoza PCP: Dr. Priyanka Julio MD Status: REG CLI Study: Dexa Bone Density Study Date of Exam: 03/06/25 Exam# [id number] Ordering Dr: Priyakna Julio PROCEDURE: DEXA BONE DENSITY STUDY 03/06/2025 [...] Recommend follow-up as clinically warranted. Reading Location: [id number] CC: Dr. Priyanka Julio MD Control Officer: Signed Normal [facility] Anion gap in Serum or Plasma Ordered By: Priyanka Julio on 02-19-2025 Anion gap [Moles/Vol] 14 mmol/L 5- [facility] BUN/creatinine ratioOrdered By: Priyanka Julio on 02-19-2025 Urea nitrogen/Creatinine [Mass ratio] 17.0 mg/mg - [facility] Bilirubin, totalOrdered By: Priyanka Julio on 02-19-2025 Bilirubin [Mass/Vol] 0.62 mg/dL 0.00-1.30 [facility] Calculated very low density lipoprotein (VLDL) cholesterol measurementOrdered By: Priyanka Julio on 02-19-2025 Calculated very low density lipoprotein (VLDL) cholesterol measurement 12 mg/dL 5-40 [facility] Carbon dioxide, total [Moles /volume] in Central venous bloodOrdered By: Priyanka Julio on 02-19-2025 CO2 [Moles/Vol] 22.9 mmol/L 21.0-32.0 [facility] Chloride assayOrdered By: Ekta Julio on 02-19-2025 Chloride [Moles/Vol] 103 mmol/L 98-108 [facility] Comprehensive Metabolic Prof ilon 02-19-2025 Albumin [Mass/Vol] 4.5 g/dL Normal 3.4-4.8 [facility] Comment on above: Order Comment: Order Date: 02/19/25Order Info: [id number] - CMPOrder Info: [id number] - LIPIDOrder Info: [id number] - TSH Performed By: #### L 500.4050, L500.4100, L501.9520 ####[facility] [address] [place], [address] Albumin/Globulin [Mass ratio] 1.6 {ratio} Normal 0.9-2.4 [facility] Comment on above: Order Comment: Order Date: 02/19/25Order Info: [id number]- - CMPOrder Info: [id number] - LIPIDOrder Info: [id number] - TSH Performed By: #### L 500.4050, L500.4100, L501.9520 ####[facility] [address] [place], [address] ALK PHOS 79 U/L Normal 35-104 [facility] Comment on above: Order Comment: Order Date: 02/19/25Order Info: [id number]- - CMPOrder Info: [id number] - LIPIDOrder Info: [id number] - TSH Performed By: #### L 500.4050, L500.4100, L501.9520 ####[facility] [address] [place], [address] ALT [Catalytic activity/Vol] 15 U/L Normal <=34 [facility] Comment on above: Order Comment: Order Date: 02/19/25Order Info: [id number] - CMPOrder Info: [id number] - LIPIDOrder Info: [id number] - TSH Performed By: #### L 500.4050, L500.4100, L501.9520 ####[facility] [address] [place], [address] AST [Catalytic activity/Vol] 24 U/L Normal <=31 [facility] Comment on above: Order Comment: Order Date: 02/19/25Order Info: [id number] - CMPOrder Info: [id number] - LIPIDOrder Info: [id number] - TSH Performed By: #### L 500.4050, L500.4100, L501.9520 ####[facility] [address] [place], [address] Bilirubin [Mass/Vol] 0.62 mg/dL Normal 0.00-1.30 [facility] Comment on above: Order Comment: Order Date: 02/19/25Order Info: 86-1 - CMPOrder Info: [id number] - LIPIDOrder Info: [id number] - TSH Performed By: #### L 500.4050, L500.4100, L501.9520 ####[facility] [address] [place], [address] BUN/CRE 17.0 RATIO Normal 10-20 [facility] Comment on above: Order Comment: Order Date: 02/19/25Order Info: [id number] - CMPOrder Info: [id number] - LIPIDOrder Info: [id number] - TSH Performed By: #### L 500.4050, L500.4100, L501.9520 ####[facility] [address] [place], [address] Calcium [Mass/Vol] 10.0 mg/dL Normal 7.6-11.0 [facility] Comment on above: Order Comment: Order Date: 02/19/25Order Info: [id number] - CMPOrder Info: [id number] - LIPIDOrder Info: [id number] - TSH Performed By: #### L 500.4050, L500.4100, L501.9520 ####[facility] [address] [place], [address] Chloride [Moles/Vol] 103 mmol/L Normal 98-108 [facility] Comment on above: Order Comment: Order Date: 02/19/25Order Info: 86-1 - CMPOrder Info: [id number] - LIPIDOrder Info: [id number] - TSH Performed By: #### L 500.4050, L500.4100, L501.9520 ####[facility] [address] [place], [address] CO2 [Moles/Vol] 22.9 mmol/L Normal 21.0-32.0 [facility] Comment on above: Order Comment: Order Date: 02/19/25Order Info: [id number]- - CMPOrder Info: - LIPIDOrder Info: [id number] - TSH Performed By: #### L 500.4050, L500.4100, L501.9520 ####[facility] [address] [place], [address] Creatinine [Mass/Vol] 0.71 mg/dL Normal 0.70-1.20 [facility] Comment on above: Order Comment: Order Date: 02/19/25Order Info: [id number]- - CMPOrder Info: [id number] - LIPIDOrder Info: [id number] - TSH Performed By: #### L 500.4050, L500.4100, L501.9520 ####[facility] [address] [place], [address] GAP 14 Normal 5-15 [facility] Comment on above: Order Comment: Order Date: 02/19/25Order Info: [id number] - CMPOrder Info: [id number] - LIPIDOrder Info: [id number] - TSH Performed By: #### L 500.4050, L500.4100, L501.9520 ####[facility] [address] [place], [address] GFR/1.73 sq M.predicted among non-blacks MDRD (S/P/Bld) [Vol rate/Area] 95 mL/min/{1.73_m2} Normal >60 [facility] Comment on above: Order Comment: Order Date: 02/19/25Order Info: [id number] - CMPOrder Info: [id number] - LIPIDOrder Info: [id number] - TSH Result Comment: mL/m in/1.73m2 CKD-EPI Creatinine Equation (2020) Performed By: #### L 500.4050, L500.4100, L501.9520 ####[facility] [address] [place], [address] Globulin (S) [Mass/Vol] 2.8 g/dL Normal 2.2-4.2 [facility] Comment on above: Order Comment: Order Date: 02/19/25Order Info: 07-1 - CMPOrder Info: [id number] - LIPIDOrder Info: [id number] - TSH Performed By: #### L 500.4050, L500.4100, L501.9520 ####[facility] [address] [place], [address] Glucose [Mass/Vol] 126 mg/dL High 70-99 [facility] Comment on above: Order Comment: Order Date: 02/19/25Order Info: 07- - CMPOrder Info: [id number] - LIPIDOrder Info: 6-3 - TSH Performed By: #### L 500.4050, L500.4100, L501.9520 ####[facility] [address] [place], [address] Potassium [Moles/Vol] 4.0 mmol/L Normal 3.3-5.1 [facility] Comment on above: Order Comment: Order Date: 02/19/25Order Info: [id number] - CMPOrder Info: [id number] - LIPIDOrder Info: [id number] - TSH Performed By: #### L 500.4050, L500.4100, L501.9520 ####[facility] [address] [place], [address] Sodium [Moles/Vol] 140 mmol/L Normal 133-145 [facility] Comment on above: Order Comment: Order Date: 02/19/25Order Info: [id number] - CMPOrder Info: [id number] - LIPIDOrder Info: [id number] - TSH Performed By: #### L 500.4050, L500.4100, L501.9520 ####[facility] [address] [place], [address] T PROT 7.3 g/dL Normal 5.9-8.4 [facility] Comment on above: Order Comment: Order Date: 02/19/25Order Info: [id number] - CMPOrder Info: [id number] - LIPIDOrder Info: 3 - TSH Performed By: #### L 500.4050, L500.4100, L501.9520 ####[facility] [address] [place], [address] Urea nitrogen [Mass/Vol] 12 mg/dL Normal 4-19 [facility] Comment on above: Order Comment: Order Date: 02/19/25Order Info: [id number] - CMPOrder Info: [id number] - LIPIDOrder Info: 3 - TSH Performed By: #### L 500.4050, L500.4100, L501.9520 ####[facility] [address] [place], [address] Glomerular filtration rate ( GFR) estimation/1.73 sq m using serum, plasma, or whole bOrdered By: Priyanka Julio on 02-19-2025 GFR/1.73 sq M.predicted among non-blacks MDRD (S/P/Bld) [Vol rate/Area] 95 mL/min/{1.73_m2} >60 [facility] Comment on above: mL/min/1.73m2 CKD-EP I Creatinine Equation (2020) LDL calc ser/plasOrdered By: Priyanka Julio on 02-19-2025 Cholesterol in LDL [Mass/Vol] 65 mg/dL [facility] Comment on above: Xlhcztjvss=327-554 m g/dL & Higher Tjnl=693 mg/dL or greaterFriedwald Equation for LDL-C Laboratory - Chemistry and C hemistry - challengeOrdered By: Priyanka Julio on 02-19-2025 AST [Catalytic activity/Vol] 24 U/L <32 [facility] Lipid Profileon 02-19-2025 CHOL:HDL 1.86 Normal [facility] Comment on above: Order Comment: Order Date: 02/19/25Order Info: [id number] - CMPOrder Info: [id number] - LIPIDOrder Info: [id number] - TSH Performed By: #### L 500.4050, L500.4100, L501.9520 ####[facility] [address] [place], [address] Cholesterol [Mass/Vol] 165 mg/dL Normal <=200 [facility] Comment on above: Order Comment: Order Date: 02/19/25Order Info: [id number] - CMPOrder Info: [id number] - LIPIDOrder Info: [id number] - TSH Result Comment: Chol esterol level, Desirable <200 mg/dL Borderline high cholesterol 200-239 mg/dL High cholesterol >=240 mg/dL Recommendations of the NCEP Adult Treatment Panel for the following risk-cutoff thresholds for the [place] population. Performed By: #### L 500.4050, L500.4100, L501.9520 ####[facility] [address] [place], [address] Cholesterol in HDL [Mass/Vol] 89 mg/dL Normal [facility] Comment on above: Order Comment: Order Date: 02/19/25Order Info: [id number] - CMPOrder Info: [id number] - LIPIDOrder Info: [id number] - TSH Result Comment: Latasha onal Cholesterol Education Program (NCEP) guidelines: <40 mg/dL: Low HDL-cholesterol (major risk factor for CHD) >= 60 mg/dL: High HDL-cholesterol (negative risk factor for CHD) HDL-cholesterol is affected by a number of factors, e.g. smoking, exercise, hormones, sex and age. Performed By: #### L 500.4050, L500.4100, L501.9520 ####[facility] [address] [place], [address] Cholesterol in LDL [Mass/Vol] 65 mg/dL Normal [facility] Comment on above: Order Comment: Order Date: 02/19/25Order Info: [id number] - CMPOrder Info: [id number] - LIPIDOrder Info: 6-3 - TSH Result Comment: Bord fxghve=058-765 mg/dL Higher Bxni=882 mg/dL or greater Friedwald Equation for LDL-C Performed By: #### L 500.4050, L500.4100, L501.9520 ####[facility] [address] [place], [address] Cholesterol in VLDL [Mass/Vol] 12 mg/dL Normal 5-40 [facility] Comment on above: Order Comment: Order Date: 02/19/25Order Info: 86-1 - CMPOrder Info: [id number] - LIPIDOrder Info: [id number] - TSH Performed By: #### L 500.4050, L500.4100, L501.9520 ####[facility] [address] [facility] [place], [address] Triglyceride [Mass/Vol] 58 mg/dL Normal [facility] Comment on above: Order Comment: Order Date: 02/19/25Order Info: [id number] - CMPOrder Info: [id number] - LIPIDOrder Info: 6-3 - TSH Result Comment: The drugs N-Acetylcysteine and Metamizole may falsely depress this assay. Normal range: <150 mg/dL Borderline High: 150-199 mg/dL High: 200-499 mg/dL Very High: >500 mg/dL Performed By: #### L 500.4050, L500.4100, L501.9520 ####[facility] [address] [place], [address] Potassium measurement (mass/ volume)Ordered By: Priyanka Julio on 02-19-2025 Potassium (Unsp spec) [Mass/Vol] 4.0 mmol/L 3.3-5.1 [facility] Screening total cholesterol/ high density lipoprotein (HDL) cholesterol ratioOrdered By: Priyanka Julio on 02-19-2025 Cholesterol.total/Paula sterol in HDL [Mass ratio] 1.86 {ratio} [facility] Serum creatinine measurement (mass/volume)Ordered By: Priyanka Julio on 02-19-2025 Creatinine [Mass/Vol] 0.71 mg/dL 0.70-1.20 [facility] Serum globulin measurementOr dered By: Priyanka Julio on 02-19-2025 Globulin (S) [Mass/Vol] 2.8 g/dL 2.2-4.2 [facility] Serum glucose measurement (m ass/volume)Ordered By: Priyanka Julio on 02-19-2025 Glucose [Mass/Vol] 126 mg/dL High 70-99 [facility] Serum or plasma alanine albright otransferase (ALT) measurementOrdered By: Priyanka Julio on 02-19-2025 ALT [Catalytic activity/Vol] 15 U/L <35 [facility] Serum or plasma albumin silke urement (mass/volume)Ordered By: Priyanka Julio on 02-19-2025 Albumin [Mass/Vol] 4.5 g/dL 3.4-4.8 [facility] Serum or plasma albumin/glob ulin mass ratioOrdered By: Priyanka Julio on 02-19-2025 Albumin/Globulin [Mass ratio] 1.6 {ratio} 0.9-2.4 [facility] Serum or plasma alkaline jimmy sphatase measurementOrdered By: Priyanka Julio on 02-19-2025 ALP [Catalytic activity/Vol] 79 U/L 35-104 [facility] Serum or plasma calcium silke urement (mass/volume)Ordered By: Priyanka Julio on 02-19-2025 Calcium [Mass/Vol] 10.0 mg/dL 7.6-11.0 [facility] Serum or plasma cholesterol in HDL measurement (mass/volume)Ordered By: Priyanka Julio on 02-19-2025 Cholesterol in HDL [Mass/Vol] 89 mg/dL >40 [facility] Comment on above: National Cholesterol Education Program (NCEP) guidelines:<40 mg/dL: Low HDL-cholesterol (major risk factor for CHD)>= 60 mg/dL: High HDL-cholesterol (negative risk factor for CHD)HDL-cholesterol is affected by a number of factors, e.g. smoking, exercise, hormones, sex and age. Serum or plasma cholesterol measurement (mass/volume)Ordered By: Priyanka Julio on 02-19-2025 Cholesterol [Mass/Vol] 165 mg/dL <201 [facility] Comment on above: Cholesterol level, D esirable <200 mg/dLBorderline high cholesterol 200-239 mg/dLHigh cholesterol >=240 mg/dLRecommendations of the NCEP Adult Treatment Panel for the following risk-cutoff thresholds for the [place] population. Serum or plasma urea nitroge n measurement (mass/volume)Ordered By: Priyanka Julio on 02-19-2025 Urea nitrogen [Mass/Vol] 12 mg/dL 4-19 [facility] Sodium levelOrdered By: Raul Julio on 02-19-2025 Sodium [Moles/Vol] 140 mmol/L 133-145 [facility] TSH DL <= 0.005 mIU/L QnOrde red By: Priyanka Julio on 02-19-2025 TSH Qn 1.800 uIU/mL 0.300-4.200 [facility] Thyroid Stim Hormone (TSH)on 02-19-2025 TSH 1.800 uIU/mL Normal 0.300-4.200 [facility] Comment on above: Order Comment: Order Date: 02/19/25Order Info: [id number] - CMPOrder Info: [id number] - LIPIDOrder Info: [id number] - TSH Performed By: #### L 500.4050, L500.4100, L501.9520 ####[facility] [address] [place], [address] Total proteinOrdered By: Keely Julio on 02-19-2025 Protein [Mass/Vol] 7.3 g/dL 5.9-8.4 [facility] Triglycerides measurementOrd ered By: Priyanka Julio on 02-19-2025 Triglyceride [Mass/Vol] 58 mg/dL <199 [facility] Comment on above: The drugs N-Acetylcy steine and Metamizole may falsely depress this assay. Normal range: <150 mg/dLBorderline High: 150-199 mg/dLHigh: 200-499 mg/dLVery High: >500 mg/dL Venous Duplex US, Unilateral on 02-04-2025 Venous Duplex US, Unilateral [facility] [address] [place] [address] Venous Duplex US, Unilateral 02/04/25 1253 MR#: [id number] Acct: [id number] Name: ORTIZ SAMS Rep #: [id number] : 1960 64 From: David Figueroa MD [...] @ [facility] @ 13:10 @ [phone]. VL/Venous Duplex US, Unilateral Interpretation Summary Deep [...] MD Date Dictated: 02/04/251252 Date Transcribed: 02/04/252231 Control Officer: Signed Normal [facility] Venous duplex ultrasound rep ortOrdered By: David Figueroa on 02-04-2025 US Vein [facility] [address] [place] [address] Venous Duplex US, Unilateral 02/04/25 1253 MR#: [id number] Acct: [id number] Name: ORTIZ SAMS Rep #:[id number] : 1960 64 From: David Figueroa MD [...] [facility] @ 13:10 @ [phone]. VL/Venous Duplex US, Unilateral Interpretation Summary Deep [...] Date Dictated: 02/04/25 1253 Date Transcribed: 02/04/252231 Control Officer: Signed [facility] Other Anion gap in Serum or Plasma Ordered By: Santana Duran on 12-17-2024 Anion gap [Moles/Vol] 11 mmol/L 10-24 [facility] BUN/creatinine ratioOrdered By: Santana Duran on 12-17-2024 Urea nitrogen/Creatinine [Mass ratio] 13.3 mg/mg 03-31 [facility] Basic Metabolic Profile (BMP )on 12-17-2024 BUN/CRE 13.3 RATIO Normal 03-31 [facility] Comment on above: Performed By: #### L 500.2500, L506.1001 #### [facility] [address] [place], [address] Calcium [Mass/Vol] 9.6 mg/dL Normal 7.6-11.0 [facility] Comment on above: Performed By: #### L 500.2500, L506.1001 #### [facility] [address] [place], [address] Chloride [Moles/Vol] 103 mmol/L Normal 98-108 [facility] Comment on above: Performed By: #### L 500.2500, L506.1001 #### [facility] [address] [place], [address] CO2 [Moles/Vol] 24.5 mmol/L Normal 21.0-32.0 [facility] Comment on above: Performed By: #### L 500.2500, L506.1001 #### [facility] [address] [place], [address] Creatinine [Mass/Vol] 0.78 mg/dL Normal 0.70-1.20 [facility] Comment on above: Performed By: #### L 500.2500, L506.1001 #### [facility] [address] [place], [address] GAP 11 Normal - [facility] Comment on above: Performed By: #### L 500.2500, L506.1001 #### [facility] [address] [place], [address] GFR/1.73 sq M.predicted among non-blacks MDRD (S/P/Bld) [Vol rate/Area] 85 mL/min/{1.73_m2} Normal >60 [facility] Comment on above: Result Comment: mL/m in/1.73m2 CKD-EPI Creatinine Equation (2020) Performed By: #### L 500.2500, L506.1001 #### [facility] [address] [place], [address] Glucose [Mass/Vol] 127 mg/dL High 70-99 [facility] Comment on above: Performed By: #### L 500.2500, L506.1001 #### [facility] [address] [place], [address] Potassium [Moles/Vol] 4.0 mmol/L Normal 3.3-5.1 [facility] Comment on above: Performed By: #### L 500.2500, L506.1001 #### [facility] [address] [place], [address] Sodium [Moles/Vol] 139 mmol/L Normal 133-145 [facility] Comment on above: Performed By: #### L 500.2500, L506.1001 #### [facility] [address] [place], [address] Urea nitrogen [Mass/Vol] 10 mg/dL Normal 4-19 [facility] Comment on above: Performed By: #### L 500.2500, L506.1001 #### [facility] [address] [place], [address] Carbon dioxide, total [Moles /volume] in Central venous bloodOrdered By: Santana Duran on 12-17-2024 CO2 [Moles/Vol] 24.5 mmol/L 21.0-32.0 [facility] Chloride assayOrdered By: Tevin Duran on 12-17-2024 Chloride [Moles/Vol] 103 mmol/L 98-108 [facility] Glomerular filtration rate ( GFR) estimation/1.73 sq m using serum, plasma, or whole bOrdered By: Santana Duran on 12-17-2024 GFR/1.73 sq M.predicted among non-blacks MDRD (S/P/Bld) [Vol rate/Area] 85 mL/min/{1.73_m2} >60 [facility] Comment on above: mL/min/1.73m2 CKD-EP I Creatinine Equation (2020) Potassium measurement (mass/ volume)Ordered By: Santana Duran on 12-17-2024 Potassium (Unsp spec) [Mass/Vol] 4.0 mmol/L 3.3-5.1 [facility] Serum creatinine measurement (mass/volume)Ordered By: Santana Duran on 12-17-2024 Creatinine [Mass/Vol] 0.78 mg/dL 0.70-1.20 [facility] Serum glucose measurement (m ass/volume)Ordered By: Santana Duran on 12-17-2024 Glucose [Mass/Vol] 127 mg/dL High 70-99 [facility] Serum or plasma calcium silke urement (mass/volume)Ordered By: Santana Duran on 12-17-2024 Calcium [Mass/Vol] 9.6 mg/dL 7.6-11.0 [facility] Serum or plasma urea nitroge n measurement (mass/volume)Ordered By: Santana Duran on 12-17-2024 Urea nitrogen [Mass/Vol] 10 mg/dL 4-19 [facility] Sodium levelOrdered By: Pipe Duran on 12-17-2024 Sodium [Moles/Vol] 139 mmol/L 133-145 [facility] Vitamin D,25 Hydroxyon 12-17 Vitamin D 25-OH 50.7 ng/mL Normal 30-100 [facility] Comment on above: Result Comment: Maisha min D Status Deficiency: <20 ng/mL (50nmol/L) Insufficiency: 20-30 ng/mL (50-75 nmol/L) Sufficiency: 30-100 ng/mL (75-250 nmol/L) Toxicity: >100 ng/mL (>250 nmol/L) Performed By: #### L 500.2500, L506.1001 ####[facility] [id number] [place], [address] Ankle min 3 Viewson 11-27-19 25 Ankle min 3 Views [facility] Imaging Services [address] [place] [address] Ankle min 3 Views MR#: [id number] Acct: [id number] Name: ORTIZ SAMS Rep #: [id number] : 1960 F 64 From: Christopher leon MD PCP: Dr. Priyanka Julio MD Status: REG CLI Study: Ankle min 3 Views Date of Exam: 11/26/24 Exam# [id number] Ordering Dr: Viviana Stiles NP, NP PROCEDURE: [...] No evidence for acute abnormality. Reading [facility] CC: Viviana Stiles; Dr. Priyanka Julio MD Control Officer: Signed Normal [facility] Urgent Care Visit Reporton 0 11-06-2024 Urgent Care Visit Report [facility] [address], [address] [place] [address] OFFICE VISIT Date of Service: 11/06/24 MR#: [id number] Acct: [id number] Name: ORTIZ SAMS Rep #: [id number] : 1960 Provider: HARMONY Vaz Age/Sex: 64/F [facility] Status: Signed Intake Vital Signs 08/20/24 08:23 [...] room air room air Intake Visit Reasons: WESTLYE/PEREZ/ST Chief Complaint: congest, chest tight, cough, PEREZ, mucus Proration Clerk Required: No Is patient in pain?: No Allergies No Known Allergies Allergy (Verified 11/06/24 07:51) Medications ???Medication ???Instructions ???Recorded ???Confirmed ???Type multivitamin 1 tab PO QDAY 08/20/24 08/20/24 Hi story omega 6-zqe-qsm-fish oil 60 mg-90 1 cap PO QDAY [...] numerous otc meds without relief. denies fever. [facility] Social History (Updated 08/20/24 @ 08:16 by [...] Risk Scr (more content not included)... Normal [facility] SAQIB SCREENING W TOMOon 04-28 -2025 SAQIB SCREENING W LYNN * * *Final Report* * * DATE OF EXAM: Oct 07 2024 3:22PM AWW [id number] - SAQIB SCREENING W LYNN / PROCEDURE REASON: screening mamm * * * * Physician Interpretation * * * * [facility] [address] [place] [address] [place] [id number] #[id number] - SAQIB SCREENING W LYNN HISTORY: 64 [...] Frederick Mack M.D. Electronically signed on: 10/08/2024 Control Officer: ARABELLA Transcribe Date/Time: Oct 07 2024 2:49P Dictated by : FREDERICK MACK MD This examination was interpreted and the report reviewed and electronically signed by: FREDERICK MACK MD on Oct 08 2024 8:59AM EST [id number] Normal [facility] Urgent Care Visit Reporton 0 08-20-2024 Urgent Care Visit Report [facility] [address], [address] [place] [address] OFFICE VISIT Date of Service: 08/20/24 MR#: [id number] Acct: [id number] Name: ORTIZ SAMS Rep #: [id number] : 1960 Provider: HARMONY Vaz Age/Sex: 64/F Location[facility] Status: Signed Intake Vital Signs 08/20/24 08:23 Height 5 ft 6 in Weight: 139 lb BMI 22.4 BP 138/82 H Blood Pressure Location Lt brachial Position Sitting Respiration 16 Pulse 66 Pulse Source Monitor Temp 98.1 F Temp Source Temporal Pulse Oximetry (%) 97 Oxygen Delivery Method room air Intake Visit Reasons: ST/BILAT EAR PAIN/PEREZ Chief Complaint: sinus congestion, b/l ear pain, cough Proration Clerk Required: No Accompanied by: Self Is patient in pain?: No Allergies No Known Allergies Allergy (Verified 08/20/24 08:15) Medications ???Medication ???Instructions ???Recorded ???Confirmed ???Type amoxicillin 500 mg tablet 500 mg PO TID #30 tabs 08/20/24 Rx amoxicillin 500 mg tablet 500 mg PO TID #30 tabs 08/20/24 Rx multivitamin 1 tab PO QDAY 08/20/24 08/20/24 Hi story omega 4-kfi-ohj-fish oil 60 mg-90 1 cap PO QDAY [...] with similar complaints, including spouse. Non-smoker. No irjx-ure-hspiwlx products taken to assist. No other associated symptoms and no other alleviating/aggravati ng factors. ROS Const Constitutional: No other (as above) Exam Const General: cooperative, healthy appearing and no acute distress Nutritional Appearance: average body habitus Orientation: alert, awake and oriented x3 HENNY Head: normal to inspection Ears: hearing grossly [...] Badillo Signature: Date (if applicable) CC: Normal [facility] Basophil percentageon 2021 Chloride [Moles/Vol] 104 mmol/L 98-107 [facility] Work Phone: Cholesterol [Mass/Vol] 189 mg/dL <200 [facility] Work Phone: Comment on above: <200 mg/dL Desirable 200-240 mg/dL Borderline >240 mg/dL High Risk Glucose [Mass/Vol] 101 mg/dL 74-106 [facility] Work Phone: Comment on above: Fasting Glucose resu lt from 100 to 125 mg/dL suggests IMPAIRED HOMEOSTASIS per A.D.A. criteria. Potassium [Moles/Vol] 3.8 mmol/L 3.5-5.1 [facility] Work Phone: Sodium [Moles/Vol] 140 mmol/L 136-145 [facility] Work Phone: Triglyceride [Mass/Vol] 41 mg/dL <199 [facility] Work Phone: Comment on above: The drugs N-Acetylcy steine and Metamizole may falsely depress this assay.Serum Triglycerides Reference Interval Normal <150 mg/dL Borderline high 150 - 199 mg/dL High 200 - 499 mg/dL Very High > or = 500 mg/dL WBC (Bld) [#/Vol] 7.7 10*3/uL 4.4-11.0 [facility] Work Phone: Blood erythrocytes count (nu mber/volume)on 05-25-2022 RBC (Bld) [#/Vol] 4.35 10*6/uL 4.2-5.4 [facility] Work Phone: Blood hemoglobin measurement (mass/volume)on 05-25-2022 Hemoglobin (Bld) [Mass/Vol] 14.0 g/dL 12.0-15.0 [facility] Work Phone: Blood platelet mean volumeon 05-25-2022 Platelet mean volume (Bld) [Entitic vol] 11.6 fL 6.2-12.0 [facility] Work Phone: Determination of erythrocyte mean corpuscular volume (MCV)on 05-25-2022 MCV (RBC) [Entitic vol] 95.4 fL 81-99 [facility] Work Phone: Hematocrit Auto (Bld) [Volum e fraction]on 05-25-2022 Hematocrit (Bld) [Volume fraction] 41.5 % 37-47 [facility] Work Phone: Iron measurement (mass/mass) on 05-25-2022 Iron (Unsp spec) [Mass/Mass] 78 ug/dL 50-170 [facility] Work Phone: Laboratory - Chemistry and C hemistry - challengeon 05-25-2022 CO2 [Moles/Vol] 26.0 mmol/L 21.0-32.0 [facility] Work Phone: Cobalamin (Vitamin B12) [Mass/Vol] 471 pg/mL 211-911 [facility] Work Phone: Urea nitrogen/Creatinine [Mass ratio] 16.4 mg/mg 10-20 [facility] Work Phone: Laboratory - Hematology and Cell countson 05-25-2022 Erythrocyte distribution width (RBC) [Entitic vol] 45.6 fL 35.1-43.9 [facility] Work Phone: Erythrocyte distribution width (RBC) [Ratio] 12.9 % 11.6-14.6 [facility] Work Phone: MCH (RBC) [Entitic mass] 32.2 pg 27.0-32.0 [facility] Work Phone: MCHC Auto (RBC) [Mass/Vol]on 05-25-2022 MCHC (RBC) [Mass/Vol] 33.7 g/dL 32-36 [facility] Work Phone: No Panel Informationon 05-25 Estimated GFR (MDRD) Amer 104 mL/min >60 [facility] Work Phone: Comment on above: GFR Calc Estimated GFR (MDRD) Non-Af Amer 86 mL/min >60 [facility] Work Phone: Comment on above: Non- GFR Calc Thyroid Stimulating Hormone (TSH) 1.61 uIU/mL 0.358-3.74 [facility] Work Phone: Vitamin D 25-Hydroxy 47.3 ng/mL [facility] Work Phone: Comment on above: Vitamin D 25(OH) Sta tus Range Deficiency <20 ng/mL (50nmol/L) Insufficiency 20 - 30 ng/mL (50 - 75 nmol/L) Sufficiency 30 - 100 ng/mL (75 - 250 nmol/L) Toxicity >100 ng/mL (>250 nmol/L) Platelets bldon 05-25-2022 Platelets (Bld) [#/Vol] 267 10*3/uL 150-450 [facility] Work Phone: Serum or plasma calcium silke urement (mass/volume)on 05-25-2022 Calcium [Mass/Vol] 9.5 mg/dL 8.5-10.1 [facility] Work Phone: Serum or plasma cholesterol in HDL measurement (mass/volume)on 05-25-2022 Cholesterol in HDL [Mass/Vol] 105 mg/dL >40 [facility] Work Phone: Comment on above: The drugs N-Acetylcy steine and Metamizole may falsely depress this assay. Reference Range HDL <40 mg/dL Low HDL Cholesterol HDL >or= 60 mg/dL High HDL Cholesterol Serum or plasma cholesterol in VLDL measurement (mass/volume)on 05-25-2022 Cholesterol in VLDL [Mass/Vol] 8 mg/dL 5-40 [facility] Work Phone: Serum or plasma creatinine m easurement (mass/volume)on 05-25-2022 Creatinine [Mass/Vol] 0.73 mg/dL 0.55-1.02 [facility] Work Phone: Comment on above: The validity of the calculated GFR & GFRAA in patients over 70 years has not been determined. Clinical correlation is essential. Serum or plasma ferritin andrei surement (mass/volume)on 05-25-2022 Ferritin [Mass/Vol] 159 ng/mL 8-252 [facility] Work Phone: Serum or plasma low density lipoprotein (LDL) cholesterol measurement (mass/volume)on 05-25-2022 Cholesterol in LDL [Mass/Vol] 76 mg/dL 0-130 [facility] Work Phone: Serum or plasma urea nitroge n measurement (mass/volume)on 05-25-2022 Urea nitrogen [Mass/Vol] 12 mg/dL 7-18 [facility] Work Phone: Thin prep Papanicolaou smear with manual screeningon 05-25-2022 Thin prep Papanicolaou smear with manual screening 10 5-15 [facility] Work Phone: Vital Signs Date Time Vital Sign Value Performing Clinician Julio Ci terri 11-06-2024 07:50-0400 Body temperature 98.7 [degF] Dr. Priyanka Julio MD Work Phone: [facility] 11-06-2024 07:50-0400 Diastolic blood pressure 68 mm[Hg] Dr. Priyanka Julio MD Work Phone: [facility] 11-06-2024 07:50-0400 Heart rate 67 /min Dr. Priyanka Julio MD Work Phone: [facility] 11-06-2024 07:50-0400 Respiratory rate 16 /min Dr. Priyanka Julio MD Work Phone: [facility] 11-06-2024 07:50-0400 SaO2% (BldA) [Mass fraction] 100 % Dr. Priyanka Julio MD Work Phone: 5([phone] [place] [address] 11-06-2024 07:50-0400 Systolic blood pressure 132 mm[Hg] Dr. Priyanka Julio MD Work Phone: 1(134)666-945985 [place] [address] 08-20-2024 08:23-0400 Body height 167.[address] Priyanka Julio MD Work Phone: 3(422)580-482085 [place] [address] 08-20-2024 08:23-0400 Body mass index (BMI) [Ratio] 22.4 kg/m2 Dr. Priyanka Julio MD Work Phone: 4(253)276-439985 [place] [address] 08-20-2024 08:23-0400 Body temperature 98.1 [degF] Dr. Priyanka Julio MD Work Phone: 3(995)935-522885 [place] [address] 08-20-2024 08:23-0400 Body weight 63.[address] Priyanka Julio MD Work Phone: 4([phone])316-860085 [place] [address] 08-20-2024 08:23-0400 Diastolic blood pressure 82 mm[Hg] Dr. Priyanka Julio MD Work Phone: 7(197)683-385685 [place] [address] 08-20-2024 08:23-0400 Heart rate 66 /min Dr. Priyanka Julio MD Work Phone: 4(189)883-700285 [place] [address] 08-20-2024 08:23-0400 Respiratory rate 16 /min Dr. Priyanka Julio MD Work Phone: 0(075)456-768885 [place] [address] 08-20-2024 08:23-0400 SaO2% (BldA) [Mass fraction] 97 % Dr. Priyanka Julio MD Work Phone: 7([phone])223-928851 [place] [address] 08-20-2024 08:23-0400 Systolic blood pressure 138 mm[Hg] Dr. Priyanka Julio MD Work Phone: [facility] Encounters Encounter Date Encounter Type Care Provider Facility Start: 03-11-2025 ambulatory [facility] Julio [facility] Start: 03-06-[address] Priyanka Julio MD -Outpatient [facility] Work Phone: Start: 03-06-2025 ambulatory Pri[facility]anka Julio [facility] Start: 02-19-2025 End: 02-19-[address] Priyanka Julio MD Work Phone: -[facility] Start: 02-19-2025 End: 02-19-[address] Priyanka Julio MD -[facility] Start: 02-19-2025 End: 02-19-2025 ambulatory Priyanka Julio Facility:[facility] Start: 02-04-2025 End: 02-04-[address] Priyanka Julio MD Work Phone: -[facility] Start: 02-04-2025 End: 02-04-[address] Santana Duran DPM -Cardiovascular Services Work Phone: Start: 02-04-2025 End: 02-04-2025 ambulatory [facility] Facility:[facility] Start: 12-17-2024 End: 12-17-[address] Priyanka Julio MD Work Phone: -[facility] Start: 12-17-2024 End: 12-17-[address] [facility] Work [facility]: Start: 12-17-2024 End: 12-17-2024 ambulatory [facility] Facility:[facility] Start: 11-26-2024 End: 11-26-[address] Priyanka Julio MD Work Phone: [facility] Work Phone: Start: 11-26-2024 End: 11-26-2024 Patient encounter procedure [facility]iana Stiles [facility] [place] Work Phone: Start: 11-26-2024 End: 11-26-2024 ambulatory Priyanka Julio Facility:[facility] Start: 11-06-2024 End: 11-06-2024 Patient encounter procedure Rajat Person [facility] Work Phone: Start: 11-06-2024 End: 11-06-[address] Priyanka Julio MD Work Phone: [facility] Work Phone: Start: 10-07-2024 ambulatory PRIYANKA JULIO cility:[facility] Start: 10-07-2024 End: 10-07-2024 Subsequent hospital visit by physician Screen Mammo Bath [facility] Comment on above: saqib screen Start: 08-20-2024 End: 08-20-2024 Patient encounter procedure Rajat Person PA [facility] Work Phone: Start: 08-20-2024 End: 08-20-2024 ambulatory Rajat ANTUNEZ [facility] Start: 10-05-2023 Documentation procedure Mammog rachel Coordinator [facility] NOT LISTED Start: 10-05-2023 Letter encounter Mammography Coordinator [facility] NOT LISTED Start: 10-04-2023 End: 10-04-2023 Subsequent hospital visit by physician Screen Mammo Bath [facility]LE[facility] Comment on above: screening Start: 08-30-2022 Documentation procedure Mammog rachel Coordinator [facility] Start: 08-30-2022 Letter encounter Mammography Coordinator [facility] NOT LISTED Start: 08-29-2022 End: 08-29-2022 Subsequent hospital visit by physician Screen Mammo Bath [facility]FLE[facility] Comment on above: saqib screen Start: 06-02-2022 End: 06-02-2022 ambulatory [facility] Work Phone: Start: 06-02-2022 End: 06-02-2022 Patient encounter procedure [facility]-Laboratory, Specimen Start: 05-25-2022 End: 05-25-2022 ambulatory [facility] Work Phone: Start: 05-25-2022 End: 05-25-2022 Patient encounter procedure [facility], Therese Zelaya Start: 08-26-2021 Documentation procedure Mammog rachel Coordinator [facility] Start: 08-26-2021 Letter encounter Mammography Coordinator [facility] ARE[facility] NOT LISTED Start: 08-25-2021 End: 08-25-2021 Subsequent hospital visit by physician Screen Mammo Bath [facility]LE[facility] Comment on above: Screening Start: 09-04-2018 End: 09-04-2018 Patient encounter procedure RAJAT YAÑEZ Facility:[facility] Start: 05-22-2018 Patient encounter procedure RAJAT YAÑEZ Facility:[facility] Procedures Date Procedure Procedure Detail Performing Clinician [...] RSV Vaccine (1 - 1-dose 75+ series) [facility] Start: 05-15-2029 Urine microalbumin profile DTaP,Tdap,Td Vaccine (2 - Td or Tdap) [facility] Start: 03-11-2025 Patient encounter procedure Registered Clinical -Laboratory Therese Zelaya Start: 10-03-2024 Screening for malignant neoplasm of breast Mammogram Screening [facility] Start: 02-11-2024 Covid-19 Vaccine ( season) Covid-19 Vaccine () [facility] Start: 08-30-2023 Mammography MAMMOGRAM [facility] Start: 08-30-2023 Screening for malignant neoplasm of breast Mammogram Screening [facility] Start: 06-12-2023 Behavioral Health Screening Behavioral Health Screening [facility] Start: 02-10-2023 Covid-19 Vaccine ( season) Covid-19 Vaccine ( season) [facility] Start: 08-25-2022 Mammography MAMMOGRAM [facility] Start: 06-12-2022 DEPRESSION ASSESSMENT DEPRESSION ASSESSMENT [facility] Start: 02-10-2022 Influenza vaccination INFLUENZA (#1) [facility] Start: 2021 RSV Vaccine (1 - 1-dose 60+ series) RSV Vaccine (1 - 1-dose 60+ series) [facility] Start: 02-10-2021 Influenza vaccination INFLUENZA (#1) [facility] Start: 09-05-2019 Mammography MAMMOGRAM [facility] Start: 07-10-2019 Shingrix Vaccine (2 of 2) Shingrix Vaccine (2 of 2) [facility] Start: 2011 Pneumococcal Vaccine: 50+ (1 of 1 - PCV) Pneumococcal Vaccine: 50+ (1 of 1 - PCV) [facility] Start: 2011 SHINGRIX VACCINE (1 of 2) SHINGRIX VACCINE (1 of 2) [facility] Start: 2006 COLOGUARD (FIT-DNA) COLOGUARD (FIT-DNA) [facility] Start: 2006 Colonoscopy COLONOSCOPY [facility] Start: 2006 COLORECTAL CANCER SCREENING COLORECTAL CANCER SCREENING [facility] Start: [address] COLONOGRAPHY [facility] Start: 2006 DIABETES SCREEN DIABETES SCREEN [facility] Start: 2006 Diabetes Screening Diabetes Screening [facility] Start: 2006 FECAL OCCULT BLOOD FECAL OCCULT BLOOD [facility] Start: 2006 Lipid panel Lipid Screening [facility] Start: 2006 LIPID SCREEN LIPID SCREEN [facility] Start: 2006 Screening for malignant neoplasm of colon [facility] Start: 2006 SIGMOIDOSCOPY SIGMOIDOSCOPY [facility] Start: 1991 HPV TESTING HPV TESTING [facility] Start: 1991 Screening for malignant neoplasm of cervix HPV Testing [facility] Start: 1982 PAP TESTING PAP TESTING [facility] Start: 1982 Screening for malignant neoplasm of cervix [facility] Start: 02-14-1980 Urine microalbumin profile DTAP,TDAP,TD (1 - Tdap) [facility] Start: 1979 Anxiety Screening Anxiety Screening [facility] Start: 1979 Depression Screening Depression Screening [facility] Start: 1979 HEPATITIS C SCREENING HEPATITIS C SCREENING [facility] Start: 1979 Hepatitis C screening Hepatitis C Screening [facility] Start: 1979 HIV SCREENING HIV SCREENING [facility] Start: 1979 HIV screening HIV Screening [facility] Start: 1973 Adult depression screening assessment DEPRESSION SCREENING [facility] Start: 1966 COVID-19 VACCINE (1) [facility] Start: 1960 COVID-19 VACCINE (#1) COVID-19 VACCINE (#1) [facility] Path report.final Dx Spec [facility] Work Phone: Payers Date Payer Category Payer Self-pay [id number] 2017 [employer] BLUE ACCE SS PPO [id number] 2017 Unknown ZA REED ACCE SS PPO [id number] 2017-Present [phone] [place] [address] PPO [id number] 2017 Unknown ZA REED ACCE SS PPO [id number] 2017-Present [phone] [place] [address] PPO [id number] 2017 Unknown [id number] 1960 Unknown [id number] 1960 Unknown [id number] Private Health Insurance [id number] Self-pay [id number] Unknown [id number] Unknown [id number] Unknown [id number] Unknown [id number] Unknown [id number] Unknown [id number] [id number] Unknown [id number] [id number] Unknown [id number] [id number] Unknown [id number] 2.462 Social History Date Type Detail Facility Tobacco smoking stat [facility] Tobacco smoking consumption unknown [facility] Start: 1960 Sex Assigned At Not on file [facility] Start: 08-15-2021 End: 08-25-2021 Exposure to SARS-CoV-2 (event) Not sure [facility] Start: 1960 Sex Assigned At Female [facility] Start: 08-29-2022 End: 10-07-2024 History of Social function [facility] Start: 08-29-2022 End: 10-07-2024 Area Deprivation Index [facility] National Score (1-10 0), lower number is lower risk [address] [facility] Start: 08-20-2024 Tobacco smoking stat [facility] Never smoked tobacco (finding) [facility] Clinical Notes 08-26-2021 to 11-27-2024 Candis Yanez RT(R) - 10/07/2024 3:20 PM EDTLejerryer - Coordinator, Mammography - 10/05/2023 10:09 AM EDPhil - Coordinator, Mammography - 10/05/2023 10:09 AM EDT Note Date & Type Note Facility 11-27-2024 Radiology Diagnostic study note [facility] Imaging Services [address] [place], [place] [id number] Ankle min 3 Views MR#: [id number] Acct: [id number] Name: ORTIZ SAMS Rep #: [id number] : 1960 F 64 From: Ludy Felix MD PCP: Dr. Priyanka Julio MD Status: REG CLI Study:Ankle min 3 Views Date of Exam: Exam# [id number] Ordering Dr: Viviana Stiles NP PROCEDURE: ANKLE [...] No evidence for acute abnormality. [facility] CC: Viviana SHARPE NP-[place] Stiles; Dr. Priyanka Julio MD ~ Control Officer: Signed [facility] 10-07-2024 History of Presen t illness [...] PATIENT PRESENTS WITH AN IMPLANTABLE OR ATTACHED NURSERY MANAGER: No RADIOLOGY DEPARTMENT: Mammography PERIPHERAL IV DATA: Not applicable SIGNED BY: RT Monica(R) October 07, 2024 2:51 PM documented in this encounter [facility] 10-07-2024 Note HNO ID: [id number] Author: CANDIS YANEZ RT(Francis) Service: ? Author [...] PATIENT PRESENTS WITH AN IMPLANTABLE OR ATTACHED NURSERY MANAGER: No RADIOLOGY DEPARTMENT: Mammography PERIPHERAL IV DATA: Not applicable SIGNED BY: RT Monica(R) October 07, 2024 2:51 PM [facility] 10-05-2023 Note Formatting of this n ote might be different from the original. [address] [address] October 05, 2023 PID: [id number] Ortiz Sams [address] [place] [address] Dear Ms. Sams, We are pleased to [...] report will be kept on file at [facility] as part of your permanent medical record and are available for your continuing care. Thank you for allowing us to help in meeting your health care needs. Sincerely, Dr. Villalta Interpreting Radiologist [facility] (Normal over 40) [facility] 10-05-2023 Miscellaneous Notes [facility] [address] [place] [address] October 05, 2023 PID: [id number] Ortiz Sams [address] [place] [address] Dear Ms. Sams, We are pleased to [...] report will be kept on file at [facility] as part of your permanent medical record and are available for your continuing care. Thank you for allowing us to help in meeting your health care needs. Sincerely, Dr. Villalta Interpreting Radiologist [facility] (Normal over 40) documented in this encounter [facility] 10-04-2023 History of Presen t illness [...] PATIENT PRESENTS WITH AN IMPLANTABLE OR ATTACHED NURSERY MANAGER: No RADIOLOGY DEPARTMENT: Mammography PERIPHERAL IV DATA: Not applicable SIGNED BY: RT Monica(R) October 04, 2023 3:10 PM documented in this encounter [facility] 08-30-2022 Miscellaneous Notes [facility] [address] [place] [address] August 30, 2022 PID: [id number] Ortiz Sams [address] [place] [address] Dear Ms. Sams, We are pleased to [...] report will be kept on file at [facility] as part of your permanent medical record and are available for your continuing care. Thank you for allowing us to help in meeting your health care needs. Sincerely, Dr. Villalta Interpreting Radiologist [facility] (Normal over 40) documented in this encounter [facility] 08-29-2022 History of Presen t illness [...] 2022 3:27 PM documented in this encounter [facility] 08-26-2021 Miscellaneous Notes [facility] [address] [place] [address] August 26, 2021 PID: [id number] Ortiz Latrell [address] [place] [address] Dear Ms. Sams, We are pleased to [...] report will be kept on file at [facility] as part of your permanent medical record and are available for your continuing care. Thank you for allowing us to help in meeting your health care needs. Sincerely, Dr. Nevarez Interpreting Radiologist [facility] (Normal over 40) documented in this encounter [facility] Evaluation note No assessment inform ation available [facility] Work Phone: Reason for referral (narrative) No reason for referral information available [facility] Work Phone: Summary Purpose Family History [...] section and content) DATE CREATED AUTHOR 09/06/2018 [facility] DATE CREATED AUTHOR AUTHOR'S ORGANIZ ATION 10/08/2024 [facility] DATE CREATED AUTHOR AUTHOR'S ORGANIZ ATION 03/13/2025 [facility] Source Comments (unrecognize d section and content) In the event this informatio n is protected by the Federal Confidentiality of Alcohol and Drug Abuse Patient Records regulations: The Federal rules restrict any use of the information to criminally investigate or prosecute any alcohol or drug abuse patient.[facility] the event this information is protected by the Federal Confidentiality of Alcohol and Drug Abuse Patient Records regulations: The Federal rules restrict any use of the information to criminally investigate or prosecute any alcohol or drug abuse patient.[facility] the event this information is protected by the Federal Confidentiality of Alcohol and Drug Abuse Patient Records regulations: The Federal rules restrict any use of the information to criminally investigate or prosecute any alcohol or drug abuse patient.[facility] the event this information is protected by the Federal Confidentiality of Alcohol and Drug Abuse Patient Records regulations: The Federal rules restrict any use of the information to criminally investigate or prosecute any alcohol or drug abuse patient.[facility] the event this information is protected by the Federal Confidentiality of Alcohol and Drug Abuse Patient Records regulations: The Federal rules restrict any use of the information to criminally investigate or prosecute any alcohol or drug abuse patient.[facility] the event this information is protected by the Federal Confidentiality of Alcohol and Drug Abuse Patient Records regulations: The Federal rules restrict any use of the information to criminally investigate or prosecute any alcohol or drug abuse patient.[facility] the event this information is protected by the Federal Confidentiality of Alcohol and Drug Abuse Patient Records regulations: The Federal rules restrict any use of the information to criminally investigate or prosecute any alcohol or drug abuse patient.[facility] Reason for Visit (unrecogniz ed section and content) Reason Comments Radiology Mammogram Care Teams (unrecognized sec tion and content) Metal Template Maker Relationship Specialty Start Date End Date Priyanka Julio MD [address] [place], [place] [id number] PCP - General Family Practice 07/24/17 Metal Template Maker Relationship Specialty Start Date End Date Priyanka Julio MD [address] [place], [place] [address] PCP - General Family Practice 07/24/17 Metal Template Maker Relationship Specialty Start Date End Date Priyanka Julio MD [address] [facility] [place] [address] PCP - General Family Medicine 07/24/17 Metal Template Maker Relationship Specialty Start Date End Date Priyanka Julio MD [address] [facility] [place], [place] [id number] PCP - General Family Medicine 07/24/17 Metal Template Maker Relationship Specialty Start Date End Date Priyanka Julio MD [address] [place], [place] [address] [address] PCP - General Family Medicine 07/24/17 Metal Template Maker Relationship Specialty Start Date End Date Priyanka Julio MD [address] [place] [address] PCP - General Family Medicine 07/24/17 Metal Template Maker Relationship Specialty Start Date End Date Priyanka Julio MD [address] [place], [place] [id number] PCP - General Family Medicine 07/24/17 Team [...] End: November 26, 2024 Viviana Stiles NP, [employer] Attending Provider Active Start: November 26, 2024 End: November 26, 2024 Viviana Stiles NP, [employer] Referring Provider Active Start: November 26, 2024 [...] 2024 End: November 26, 2024 Viviana Stiles [employer], [employer] Attending Provider Active Start: November 26, 2024 End: November 26, 2024 Viviana Stiles [employer], [employer]-C Referring Provider Active Start: November 26, 2024 [...] 2024 End: November 26, 2024 Viviana Stiles [employer], [employer] Attending physician Active Start: November 26, 2024 End: November 26, 2024 Viviana Stiles [employer], [employer] Referring Provider Active Start: November 26, 2024 [...] Inactive Member Role/Relationship Status Dates Dr. Priyanka uJlio MD Primary care physician Act lisa Start: [...] BE BASED ON THE PRIMARY CLINICAL RECORDS. [facility] [employer] [facility]. provides no warranty or guarantee of the accuracy or completeness of information in this document.
== END | disposition home or self-care (01) ==
PROVIDERS: PCP Family Medicine; Referring Provider Family Medicine; Visit Provider Family Medicine
DX: D23.71 Other benign neoplasm of skin of right lower limb, including hip (principal); L82.0 Inflamed seborrheic keratosis
CPT/HCPCS: 88305